=== PATIENT | male | born 1995 | race Caucasian/White ===

== ENCOUNTER 2020-09-04 16:24 | Emergency (ER) | payer SELFPAY ==
[2020-09-04 17:05] VITALS: BP 115/70; PULSE 76; RESP 16; TEMP 36.8; O2SAT 98; BMI 54.8
--- NOTE | 2020-09-04 17:18 | CT_ITS ---
EXAMINATION: CT ABDOMEN AND PELVIS WITH CONTRAST CLINICAL INFORMATION: Right groin pain. Concern for appendicitis or renal colic COMPARISON: None TECHNIQUE: Multidetector volumetric images were obtained from the superior aspect of the liver through the pubic symphysis following administration 85 mL ofOmnipaque 350 intravenous contrast. Sagittal and coronal reformatted images were obtained on the technologist's workstation. Oral contrast: No This CT examination was performed using dose optimization techniques as appropriate, variously including the following: *Automated exposure control *Adjustment of mA and/or kV according to patient size (this includes techniques or standardized protocols for targeted exams where dose is matched to indication/reason for exam; i.e. extremities or head) *Use of iterative reconstruction technique DLP: 353 mGy-cm FINDINGS: LUNG BASES: The visualized lung bases are unremarkable. LIVER, GALLBLADDER, AND BILIARY TREE: The liver is normal in size, shape, and attenuation. No focal hepatic lesion or biliary ductal dilatation is present. Gallbladder is contracted. No bile duct dilatation. PANCREAS: Unremarkable. SPLEEN: Unremarkable. ADRENAL GLANDS: Unremarkable. KIDNEYS AND URETERS: The kidneys are normal in size, shape, and attenuation. No hydronephrosis, hydroureter, or calculi seen. No perinephric stranding. BLADDER: Unremarkable. GASTROINTESTINAL TRACT: There is no acute change of the bowel. There is no bowel wall thickening /edema. There is no bowel obstruction. There is a moderate volume of stool in the colon. The appendix is normal . The small bowel loops are unremarkable. The stomach is normal. There is no hiatal hernia. ABDOMINAL WALL: No significant hernia is appreciated. LYMPH NODES: Normal. VASCULAR: Unremarkable. PELVIC VISCERA: Unremarkable. OSSEOUS STRUCTURES: Unremarkable. CT/CT abdomen pelvis w con IMPRESSION: No acute abnormality CT scan abdomen pelvis. Normal appendix. Normal kidneys, ureter and bladder.
--- NOTE | 2020-09-04 17:20 | ED_ITS ---
HPI - Male Genitourinary General Chief complaint: Urogenital-Male Stated complaint: blood in urine - sent by [employer] Time Seen by Provider: 09/04/20 16:26 Source: patient Mode of arrival: ambulatory Limitations: no limitations History of Present Illness HPI Narrative: 24 yo male previously healthy here with right lower abdominal and groin pain x several days. Went to urgent care. Had UA which showed microscopic hematuria and patient sent in for further eval. Patient has some frequency. No dysuria/testicular pain/fevers/chills/vomiting or diarrhea. He is sexually active with one partner. Does not use condoms. MD Complaint: other (abdominal/groin pain) Onset (ago): day(s) Duration: constant Location: right inguinal region Severity: mild Quality: aching Relieving factors: none Exacerbating factors: none Associated symptoms: Reports swelling Related Data Sexually active: Yes Allergies Allergy/AdvReac Type Severity Reaction Status Date / Time No Known Allergies Allergy Verified 09/04/20 17:17 [No Known Allergies*] Review of Systems Review of Systems: Yes all other systems are reviewed and are negative Constitutional: Constitutional: Reports no additional constitutional complaints, Denies body ache(s), Denies chills, Denies fever(s), Denies headache(s) and Denies weakness Eyes: Eyes: Reports no additional eye complaints and Denies change in vision ENT: Reports system reviewed and no additional complaints, except as documented, Denies dizziness, Denies headache(s), Denies nasal congestion, Denies nasal discharge and Denies neck pain Cardiovascular: Cardiovascular: Reports no additional cardiovascular compl aints, Denies chest pain, Denies leg edema and Denies dyspnea Respiratory: Respiratory: Reports no additional respiratory complaints, Denies cough and Denies dyspnea Gastrointestinal: Gastrointestinal: Reports no additional gastrointestinal complaints, Reports abdominal pain, Denies diarrhea, Denies nausea and Denies vomiting Comments: +groin pain Genitourinary: Genitourinary: Denies dysuria, Denies flank pain, Denies penile discharge, Denies scrotal swelling, Denies testicular mass, Denies testicular pain, Reports urinary frequency, Denies urinary hesitancy, Denies urinary incontinence and Denies urinary urgency Musculoskeletal: Musculoskeletal: Reports no additional musculoskeletal complaints, Denies back pain, Denies arthralgias, Denies joint swelling, Denies neck pain, Denies numbness and Denies tingling Integumentary/Breasts: Skin/Breast: Reports system reviewed and no additional complaints, except as docu and Denies rash Neurologic: Reports system reviewed and no additional complaints, except as documented, Denies Abnormal speech present, Denies dizziness, Denies headache(s), Denies numbness, Denies tingling and Denies weakness PMFSH Past Medical History Attestation statement: The following information was validated with the patient. Source: obtained from family and nursing notes reviewed Medical History Kidney stone Social History Social History Smoked in Last 30 Days: No Use of substances other than those prescribed or required for medical reasons: No Advance Directives: No Advance Directives Information Provided: Yes Physical Exam Vital Signs: Vital Signs: Vital Signs Temp Pulse Resp BP Pulse Ox 09/04/20 17:05 98.2 F 76 16 115/70 98 Body Mass Index 54.8 Const: General: cooperative, healthy appearing, comfortable and no acute distress Orientation/consciousness: patient oriented x3 Limitations: no limitations HENMT: Head: Yes normal to inspection Ears: hearing grossly normal bilaterally General nose exam: Normal external nose present Face and sinus: Yes normal facial exam Mouth: Normal oral and palatal mucosa present Throat: Yes posterior oropharynx normal Eyes: General: appearance normal, both eyes and all related structures Pup ils: Equal, round and reactive pupils present Neck: Neck: Yes normal visual inspection Chest: Chest palpation & inspection: normal inspection of the chest Resp: Effort & Inspection: normal respiratory effort Auscultation: clear to auscultation bilaterally Cardio: Rate: regular rate Rhythm: regular rhythm Peripheral pulses: Peripheral pulses 2+ throughout GI: Inspection: Yes normal to inspection Palpation (GI): Soft to palpation and nontender Auscultation: normal bowel sounds : Other: Right inguinal tenderness, swelling which extends over to the patients proximal anterior thigh. Unable to palpate lymphadenopathy. No palpable hernia. EDUAR mccann present. General: Yes Bimanual renal exam normal bilaterally and No CVA tenderness Male General Exam: Yes normal external exam and No Genital lesions present Penis: normal penis, circumcised and No Genital lesions present Meatus: meatus normal Scrotum: scrotum normal and testes descended bilaterally Testes: Testes normal, no testicular mass, no testicular swelling and no testicular tenderness Back/Spine/Pelvis: Back: No CVA tenderness Thoracic/Lumbar Spine: thoracic and lumbar spine normal to inspection Skin: General skin exam: no rashes or lesions noted Neuro: General: patient oriented x3, no focal motor deficits and normal sensation to monofilament Cranial nerves: Yes Equal, round and reactive pupils present Cognition (Neuro): normal cognition Speech: No Abnormal speech present Gait exam (Neuro): Normal gait present Motor exam (neuro): 5/5 motor strength present throughout Extrem: General: Yes normal to inspection Course Course Course Narrative: R inguinal swelling, tenderness x several days with urinary frequency and microscopic hematuria noted at urgent care. On exam unable to palpate lymphadenopathy or hernia as patient is very tender and unwilling to let me fully palpate the area. No testicular swelling/tenderness. No upper abdominal pain. Will check UA, GC urine, CT pelvis, labs. 174-sign out to Lindsey PA pending imaging, labs, UA/GC urine. MDM - Male Genitourinary MDM Narrative Medical decision making narrative: inguinal lymphadenopathy, inguinal hernia, renal colic, cystitis, STD Lab Data Result diagrams: 09/04/20 17:36 09/04/20 17:36 Labs: Lab Results 09/04/20 Range/Units 17:36 WBC 8.8 (4.8-10.8) X10*3/uL RBC 4.96 (4.60-5.80) X10*6/uL Hgb 15.2 (14.0-18.0) g/dl Hct 44.6 (42-52) % MCV 89.9 (80-98) fL MCH 30.6 (27.0-33.0) pg MCHC 34.1 (31.0-36.0) g/dl RDW 11.5 (11.0-16.0) % Plt Count 310 (160-400) X10*3/uL MPV 9.0 L (9.4-12.4) fL Immature Gran % (Auto) 0.2 (0.0-0.4) % Neut % (Auto) 56.3 (45-73) % Lymph % (Auto) 33.4 (20-40) % [place] % (Auto) 8.7 (2-11) % Eos % (Auto) 1.2 (0-4) % Baso % (Auto) 0.2 (0-2) % Lymph # (Auto) 2.9 (1.2-4.9) X10*3/uL [place] # (Auto) 0.8 (0.1-1.2) X10*3/uL Eos # (Auto) 0.1 (0.0-0.4) X10*3/uL Baso # (Auto) 0.0 (0.0-0.2) X10*3/uL Abs Immat Gran (auto) 0.02 (0.00-0.03) X10*3/uL Absolute Neuts (auto) 5.0 (2.0-8.3) X10*3/uL Absolute Nucleated RBC 0.000 (0.0-0.012) X10*3/uL Nucleated RBC % (auto) 0.0 (0.0-0.2) /100WBC
[2020-09-04 17:40] LABS: MANUAL DIFF FLAG NO
[2020-09-04 17:46] LABS: Basophils Percent Auto 0.2 % (0-2); Eosinophils Absolute Auto 0.1 X10*3/uL (0.0-0.4); Eosinophils Percent Auto 1.2 % (0-4); Hematocrit 44.6 % (42-52); Hemoglobin 15.2 g/dl (14.0-18.0); Imm Gran Abs Auto 0.02 X10*3/uL (0.00-0.03); Imm Gran Pct Auto 0.2 % (0.0-0.4); Lymphocytes Absolute Auto 2.9 X10*3/uL (1.2-4.9); Lymphocytes Percent Auto 33.4 % (20-40); Mean Corpuscular HGB Conc 34.1 g/dl (31.0-36.0); Mean Corpuscular Hemoglobin 30.6 pg (27.0-33.0); Mean Corpuscular Volume 89.9 fL (80-98); Monocytes Absolute Auto 0.8 X10*3/uL (0.1-1.2); Monocytes Percent Auto 8.7 % (2-11); Neutrophils Percent Auto 56.3 % (45-73); Platelet Count 310 X10*3/uL (160-400); Red Blood Count 4.96 X10*6/uL (4.60-5.80); Red Cell Distribution Width 11.5 % (11.0-16.0); White Blood Count 8.8 X10*3/uL (4.8-10.8)
[2020-09-04 18:17] LABS: Anion Gap 13 (12-20); Blood Urea Nitrogen 11 mg/dL (9-16); Calcium 9.4 mg/dL (8.4-10.2); Carbon Dioxide 28 mmol/L (22-29); Chloride 103 mmol/L (96-108); Creatinine Clr Calc Pharmacy 160.2; Estimated Glomerular Filt Rate > 60; Glucose Random 97 mg/dL (60-115); Potassium 4.1 mmol/l (3.3-5.1); Sodium 140 mmol/L (135-145)
[2020-09-04 19:17] LABS: Glucose Urine UA NEG (NEG); Leukocyte Esterase Urine NEG (NEG); Nitrite Urine NEG (NEG); Urine Blood 1+ (NEG); Urine Ketones NEG (NEG); Urine Protein NEG (NEG-TRACE)
[2020-09-04 19:18] LABS: Appearance Urine CLEAR; Color Urine YELLOW
[2020-09-04 19:26] LABS: WBC Urine 0 /HPF (0-4)
[2020-09-04] MEDS: iohexoL 350 MG/ML 100 ML INFUS..BTL 85 ML IV (19:57)
[2020-09-05 08:59] LABS: CT PCR NOT DETECTED (Not Detect.); NG PCR NOT DETECTED (Not Detect.)
== END 2020-09-04 20:49 | disposition home or self-care (01) ==
PROVIDERS: Nurse Practitioner Family; Emergency Provider Emergency Medicine
DX: R31.9 Hematuria, unspecified (principal); R10.30 Lower abdominal pain, unspecified; R10.31 Right lower quadrant pain; Z20.2 Contact with and (suspected) exposure to infections with a predominantly sexual mode of transmission
CPT/HCPCS: 36415; 74177; 80048; 81001; 85025; 87491; 87591; 99284; Q9967

== ENCOUNTER 2020-10-08 12:09 | Outpatient (REF) | payer OTHER, SELFPAY | END 2020-10-08 12:10 | disposition home or self-care (01) | LOC: HO.LAB 12:09 | PROVIDERS: Visit Provider Internal Medicine | DX: Z20.828 Contact with and (suspected) exposure to other viral communicable diseases (principal) | CPT/HCPCS: C9803; U0003 ==

== ENCOUNTER 2020-10-28 02:07 | Emergency (ER) | payer OTHER, SELFPAY ==
[2020-10-28 02:58] VITALS: BP 136/86; PULSE 75; RESP 16; TEMP 36.8; O2SAT 97; BMI 52.9
--- NOTE | 2020-10-28 03:34 | ED.NECK ---
HPI - Neck Pain/Injury General Chief Complaint: Neck Pain/Injury Stated Complaint: Back pain/Neck pain Time Seen by Provider: 10/28/20 03:29 Source: patient Mode of arrival: ambulatory Limitations: no limitations History of Present Illness HPI Narrative: Patient working long hours came with pain in the lower occipital area on the left side for last few days no trauma no history of prior headaches complaint: neck pain Onset (ago): day(s) (3) Related Data Previous Rx's Medication Instructions Recorded cyclobenzaprine 10 mg PO Q8H #20 tab 10/28/20 ibuprofen 600 mg PO Q6H PRN #20 tab 10/28/20 Allergies Allergy/AdvReac Type Severity Reaction Status Date / Time No Known Allergies Allergy Unverified 07/24/20 16:27 Review of Systems Review of Systems: Yes all other systems are reviewed and are negative [facility] Past Medical History Medical History No known health problems Social History Social History Advance Directives: No Advance Directives Information Provided: No Physical Exam Vital Signs: Vital Signs: Last Vital Signs Temp 98.3 F 10/28/20 02:58 Pulse 75 10/28/20 02:58 Resp 16 10/28/20 02:58 BP 136/86 10/28/20 02:58 Pulse Ox 97 10/28/20 02:58 Body Mass Index 52.9 Const: General: cooperative, healthy appearing and comfortable Orientation/consciousness: patient oriented x3 HENMT: Head: Yes normal to inspection, Yes No palpable skull fracture present and Yes scalp tenderness (Left occipital area) Eyes: Conjunctivae: conjunctivae normal Sclerae: sclerae normal Resp: Effort & Inspection: normal respiratory effort Cardio: Rate: regular rate Rhythm: regular rhythm Neuro: General: patient oriented x3, gait normal and no focal motor deficits MDM - Neck Pain/Injury MDM Narrative Medical decision making narrative: Patient with left occipital muscle tenderness likely from strain and wrong posture, will give pain medication was muscle relaxant Discharge Plan Discharge Clinical Impression: Strain of neck muscle Qualifiers: Encounter type: initial encounter Qualified Code(s): S16.1XXA - Strain of muscle, fascia and tendon at neck level, initial encounter Patient Disposition: Home, Self-Care Instructions: Cervical Strain (ED) Additional Instructions: Apply ice take pain medication as prescribed Prescriptions: New cyclobenzaprine 10 mg tablet 10 mg PO Q8H Qty: 20 RF: 0 ibuprofen 600 mg tablet 600 mg PO Q6H PRN (Reason: pain) Qty: 20 RF: 0 Stand Alone Forms: Work/School Release Interventions: ED Discharge Assessment Last Done: 10/28/20 04:18 Discharge Date/Time: 10/28/20 04:19
[2020-10-28] MEDS: Ibuprofen 600 MG TABLET PO (04:09)
[2020-10-28] MEDS: Cyclobenzaprine HCl 10 MG TABLET PO (04:09)
== END 2020-10-28 04:19 | disposition home or self-care (01) ==
PROVIDERS: Emergency Provider Internal Medicine
DX: S16.1XXA Strain of muscle, fascia and tendon at neck level, initial encounter (principal); M54.2 Cervicalgia; X58.XXXA Exposure to other specified factors, initial encounter; Y93.9 Activity, unspecified; Y92.9 Unspecified place or not applicable; Y99.9 Unspecified external cause status; Z79.899 Other long term (current) drug therapy
CPT/HCPCS: 99283

== ENCOUNTER 2020-11-01 15:35 | Emergency (ER) | payer OTHER, SELFPAY ==
[2020-11-01 15:58] VITALS: BP 143/80; PULSE 92; RESP 17; TEMP 37; O2SAT 96; BMI 24.0
--- NOTE | 2020-11-01 16:18 | ED_ITS ---
HPI - Neck Pain/Injury General Chief Complaint: Neck Pain/Injury Stated Complaint: strain Time Seen by Provider: 11/01/20 16:01 Source: patient Mode of arrival: ambulatory Limitations: no limitations History of Present Illness HPI Narrative: Otherwise healthy 25-year-old male with no significant past medical history seen here on October 28 for left-sided posterior neck pain thought to be strain type injury secondary to work he was subsequently prescribed Flexeril and ibuprofen he re-presented today reports he is overall feeling much better still has slight pain with certain position in the superior posterior left side cervical region. Does report that he has been using a new pillow. 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 No headache, vision changes, chest pain, shortness of breath, fever or chills. In fact he reports any neck pain at this time at rest. MD complaint: neck pain Onset (ago): day(s) Associated symptoms: none Treatments prior to arrival: other (Ibuprofen/Flexeril) Related Data Previous Rx's Medication Instructions Recorded cyclobenzaprine 10 mg PO Q8H #20 tab 10/28/20 ibuprofen 600 mg PO Q6H PRN #20 tab 10/28/20 Allergies Allergy/AdvReac Type Severity Reaction Status Date / Time No Known Allergies Allergy Verified 11/01/20 16:00 Review of Systems Review of Systems: Constitutional: No Weight loss, No Fever, No Chills, No Night Sweats, No Fatigue, No Malaise ENT/Mouth: No Hearing loss, No Ear Pain, No Nasal Congestion, No Sinus Pain, No Hoarseness, No sore throat, No Rhinorrhea, No Swallowing Difficulty Eyes: No Eye Pain, No Swelling, No Redness, No Foreign Body, No Discharge, No Vision Changes Cardiovascular: No Chest Pain, No SOB, No Dyspnea on Exertion, No Orthopnea, No Edema, No Palpitations Respiratory: No Cough, No Sputum, No Wheezing, No Dyspnea Gastrointestinal: No Nausea, No Vomiting, No Diarrhea, No Constipation, No abdo swati Pain, No Hematochezia, No Melena Genitourinary: No Urinary Incontinence, No Urgency, No Flank Pain, No Urinary Flow Changes Musculoskeletal: No joint pain, No Myalgias, No Joint Swelling, As noted in HPI Skin: No Skin Lesions, No rash Neuro: No Weakness, No Numbness, No Paresthesias, No Loss of Consciousness, No Dizziness, No Headache Psych: No Social Issues Heme/Lymph: No Bruising, No Bleeding,No Lymphadenopathy Endocrine: No Polyuria, No Polydipsia, No Temperature Intolerance Yes all other systems are reviewed and are negative [facility] Past Medical History Medical History No known health problems Social History Social History Advance Directives: No Advance Directives Information Provided: No Physical Exam Vital Signs: Vital Signs: Last Vital Signs Temp 98.6 F 11/01/20 15:58 Pulse 92 11/01/20 15:58 Resp 17 11/01/20 15:58 BP 143/80 H 11/01/20 15:58 Pulse Ox 96 11/01/20 15:58 Body Mass Index 24.0 Reviewed Const: General: cooperative and healthy appearing; No acute distress or intoxicated appearing Nutritional Appearance: average body habitus Orientation/consciousness: patient oriented x3 HENMT: Head: Yes normal to inspection Ears: hearing grossly normal bilaterally Eyes: General: appearance normal, both eyes and all related structures Vi sual Hamm: normal visual hamm by confrontation Neck: Neck: Yes normal visual inspection, No positive Brudzinski's sign, No positive Kernig's sign and No tender Thyroid: Thyroid normal Neck images: 1. Very mild tender palpation over this region. No obvious swelling, erythema, infected area, lesion. Full range of motion. Chest: Chest palpation & inspection: normal inspection of the chest Resp: Effort & Inspection: normal respiratory effort Cardio: Jugular venous distension: no JVD Rhythm: regular rhythm Heart sounds: S1 normal heart sound present and S2 normal heart sound present : General: Yes no CVA tenderness Back/Spine/Pelvis: Back: no CVA tenderness Skin: General skin exam: no rashes or lesions noted Neuro: General: patient oriented x3 Extrem: General: Yes normal to inspection Course Course Course Narrative: AP left-sided posterior neck pain that is starting to improve consistent with musculoskeletal/cervical paraspinal muscle strain type injury/mild torticollis from new pillow. 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 Will discharge with work note for return follow-up instructions. Discharge Plan Discharge Clinical Impression: Strain of neck muscle Patient Disposition: Home, Self-Care Instructions: Cervical Strain (ED) Additional Instructions: Warm compress Take medication as prescribed I am glad to hear that your doing better this may take additional several days to fully resolve may be related to your new pillow use as discussed No operating heavy machinery or driving while taking muscle relaxant I have given you work note for work excuse as requested Return if any concerns or worsening symptoms Thank you Prescriptions: No Action cyclobenzaprine 10 mg tablet 10 mg PO Q8H Qty: 20 RF: 0 ibuprofen 600 mg tablet 600 mg PO Q6H PRN (Reason: pain) Qty: 20 RF: 0 Referrals: Physician,None [Primary Care Provider] - 1 week (Primary care 1 week) Stand Alone Forms: Work/School Release
== END 2020-11-01 16:35 | disposition home or self-care (01) ==
PROVIDERS: Emergency Provider Emergency Medicine Emergency Medical Services
DX: Z02.79 Encounter for issue of other medical certificate (principal); S16.1XXA Strain of muscle, fascia and tendon at neck level, initial encounter; X50.1XXA Overexertion from prolonged static or awkward postures, initial encounter; Y93.84 Activity, sleeping; Y92.013 Bedroom of single-family (private) house as the place of occurrence of the external cause; Y99.9 Unspecified external cause status
CPT/HCPCS: 99283

== ENCOUNTER 2020-11-10 09:21 | Outpatient (REF) | payer OTHER, SELFPAY ==
[2020-11-10 10:44] LABS: Glucose Urine UA NEG (NEG); Leukocyte Esterase Urine NEG (NEG); Nitrite Urine NEG (NEG); PH 6.5 (5.0-8.0); Specific Gravity - Urine 1.025 (1.005-1.025); Urine Blood 1+ (NEG); Urine Ketones NEG (NEG); Urine Protein NEG (NEG-TRACE)
[2020-11-10 10:45] LABS: Alanine Aminotransferase 71 U/L (0-40); Albumin Level 5.1 g/dL (3.5-5.0); Alkaline Phosphatase 73 U/L (39-117); Anion Gap 13 (12-20); Aspartate Amino Transferase 36 U/L (5-37); Bilirubin Total 1.8 mg/dL (0.0-1.0); Blood Urea Nitrogen 15 mg/dL (9-16); Calcium 10.1 mg/dL (8.4-10.2); Carbon Dioxide 32 mmol/L (22-29); Chloride 99 mmol/L (96-108); Estimated Glomerular Filt Rate > 60; Glucose Fasting 92 mg/dL (60-99); Sodium 139 mmol/L (135-145); Total Protein 8.3 g/dL (6.5-8.0)
[2020-11-10 10:47] LABS: Appearance Urine CLEAR; Color Urine YELLOW
[2020-11-10 10:52] LABS: Squamous Epithelial Cell Urine TRACE /LPF; WBC Urine 0 /HPF (0-4)
[2020-11-10 11:06] LABS: TSH reflex Free T4 1.08 mIU/mL (0.32-4.0)
== END 2020-11-10 09:22 | disposition home or self-care (01) ==
LOC: HO.LAB 09:21
PROVIDERS: PCP Internal Medicine; Visit Provider Physician Assistant
DX: R30.0 Dysuria (principal); R10.31 Right lower quadrant pain; Z13.1 Encounter for screening for diabetes mellitus; Z13.29 Encounter for screening for other suspected endocrine disorder
CPT/HCPCS: 36415; 80053; 81001; 81003; 84443

== ENCOUNTER → 2020-12-12 09:44 | Outpatient (BNVA) | payer OTHER, SELFPAY | PROVIDERS: PCP Internal Medicine; Visit Provider Urology | DX: R31.29 Other microscopic hematuria (principal); R10.31 Right lower quadrant pain | CPT/HCPCS: 81002; 99202 ==

== ENCOUNTER 2021-02-18 10:00 | Outpatient (RCR) | payer OTHER, SELFPAY ==
--- NOTE | 2021-01-07 18:09 | MHC.PT.EP ---
[facility] [place] Office [place] Office [place] Office [address] Keith Mars [address] [phone] F: [phone] F: [phone] F: [phone] F: [phone] Physical Therapy Plan of Care Date of Evaluation: 01/07/21 Date of Surgery: NA Diagnosis: Strain of Muscle, Fascia, and Tendon of Pelvis Assessment: Vijay is a 25-year-old male presenting to physical therapy with right-sided groin pain. He displays deficits in BL LE strength, impaired gait mechanics, and tenderness to palpation in his right iliopsoas tendon. Vijay would benefit from skilled therapy to address the aforementioned impairments and improve is tolerance to walking, running, lifting, sitting, and standing for long periods of time to allow him to return to work and perform recreational activities without pain. Pt was recommended to have therapy 2x/week for 4 weeks but due to financial reasons he will be attending therapy 1x/week for 6 weeks. Frequency and Duration: The patient will be seen 1 visit per week for 6 weeks Short Term Goals: 1.) Pt will report <2/10 pain at rest when performing leisure activities within 3 weeks. Environmental Scientist Goals: 1.) Pt will report <1/10 pain with activity to allow him to take his dog for walks within 6 weeks. 2.) Pt will demonstrate 5-/5 LE strength to allow him to return to running and lifting weights within 6 weeks. Treatment Plan: Modalities to reduce pain, spasms and effusion. Manual therapy to restore motion and function. Therapeutic exercise to improve strength and flexibility. Neuromuscular re-education for posture and balance. Therapeutic activities to return to functional activities of daily living. Electronically signed by: Adriane Gonzalez, PT, DPT Please sign and return to therapist. Thank you for your referral.
--- NOTE | 2021-02-18 11:31 | MHC.PT.DC ---
[facility] [place] Office [place] Office [place] Office [address] Keith Mars [address] [facility] [phone] F: [phone] F: [phone] F: [phone] F: [phone] Physical Therapy Discharge Report Diagnosis: Strain of Muscle, Fascia, and Tendon of Pelvis Date of Surgery: NA Date of Evaluation: 01/07/21 Date of Discharge: 02/18/21 Treatments to Date: 6 Cancellations to Date: 0 No Shows to Date: 0 Discharge Status: Achieved Goals Improved Function Discharge Summary: Vijay has completed 6 visits of outpatient physical therapy after sustaining a R hip flexor strain. During this time he has made significant improvements in LE strength and flexibility, Core stability and hip strength, lifting and squatting mechanics, and he no longer experiences pain in his hip flexor. Vijay was provided with a thorough HEP to continue outside of physical therapy in order to maintain He has met all of his physical therapy goals and is now being discharged from physical therapy. Electronically signed by: Adriane Gonzalez PT, DPT Please sign and return to therapist. Thank you for your referral.
== END 2021-02-18 11:32 | disposition other institution (70) ==
LOC: HO.PT 10:00
PROVIDERS: PCP Physician Assistant; Visit Provider Physician Assistant
DX: S39.013A Strain of muscle, fascia and tendon of pelvis, initial encounter (principal)
CPT/HCPCS: 97110; 97112; 97140; 97161; 97530

== ENCOUNTER 2021-04-12 19:55 | Emergency (ER) | payer OTHER, SELFPAY ==
--- NOTE | ~2021-04-12 | US_ITS ---
EXAMINATION: US ABDOMEN LIMITED CLINICAL INFORMATION: Epigastric pain, question gallstones. COMPARISON: CT 09/04/2020 TECHNIQUE: Real-time imaging of the right upper quadrant abdominal viscera. FINDINGS: PANCREAS: Macro ultrasound pancreas LIVER: The liver is normal in size. The liver contour is normal. Parenchymal echogenicity is normal. No focal hepatic lesion. There is no intrahepatic biliary duct dilatation seen. GALLBLADDER: The gallbladder is physiologically distended without evidence of stones, sludge, polyps, wall thickening or pericholecystic fluid. COMMON BILE DUCT: Normal in caliber measuring 0.4 cm in diameter. RIGHT KIDNEY: No hydronephrosis. No renal calculi or focal parenchymal lesions. The kidney measures 10.1 cm in maximum dimension. FREE FLUID: None. US/US abdomen limited IMPRESSION: No abnormality demonstrated.
[2021-04-12 20:54] VITALS: BP 127/84; PULSE 69; RESP 16; TEMP 36.5; O2SAT 97; BMI 25.0
[2021-04-12 22:24] LABS: MANUAL DIFF FLAG NO
[2021-04-12 22:29] LABS: Basophils Percent Auto 0.2 % (0-2); Eosinophils Absolute Auto 0.1 X10*3/uL (0.0-0.4); Eosinophils Percent Auto 0.3 % (0-4); Hematocrit 47.1 % (42-52); Hemoglobin 16.1 g/dl (14.0-18.0); Imm Gran Abs Auto 0.05 X10*3/uL (0.00-0.03); Imm Gran Pct Auto 0.3 % (0.0-0.4); Lymphocytes Absolute Auto 2.7 X10*3/uL (1.2-4.9); Mean Corpuscular HGB Conc 34.2 g/dl (31.0-36.0); Mean Corpuscular Hemoglobin 30.8 pg (27.0-33.0); Mean Corpuscular Volume 90.1 fL (80-98); Mean Platelet Volume 8.9 fL (9.4-12.4); Monocytes Percent Auto 6.6 % (2-11); Neutrophils Absolute Auto 10.5 X10*3/uL (2.0-8.3); Neutrophils Percent Auto 73.6 % (45-73); Platelet Count 335 X10*3/uL (160-400); Red Blood Count 5.23 X10*6/uL (4.60-5.80); Red Cell Distribution Width 11.6 % (11.0-16.0); White Blood Count 14.3 X10*3/uL (4.8-10.8)
[2021-04-12 22:57] LABS: Anion Gap 13 (12-20); Blood Urea Nitrogen 7 mg/dL (9-16); Calcium 10.3 mg/dL (8.4-10.2); Carbon Dioxide 28 mmol/L (22-29); Chloride 102 mmol/L (96-108); Creatinine Clr Calc Pharmacy 106.2; Estimated Glomerular Filt Rate > 60; Glucose Random 96 mg/dL (60-115); Potassium 4.3 mmol/L (3.3-5.1); Sodium 139 mmol/L (135-145)
[2021-04-12 23:52] LABS: Alanine Aminotransferase 21 U/L (0-40); Albumin Level 4.9 g/dL (3.5-5.0); Alkaline Phosphatase 76 U/L (39-117); Aspartate Amino Transferase 42 U/L (5-37); Bilirubin Direct 0.7 mg/dL (0.0-0.5); Bilirubin Total 2.6 mg/dL (0.0-1.0); Lipase 25 U/L (8-78)
[2021-04-13 00:51] LABS: COVID-19 Test Negative (Negative); IDNOW Serial# 9DD0AD1C
--- NOTE | 2021-04-13 00:55 | PC.NURSE ---
PT RESTING IN BED A&Ox3 SKIN PWD RESPIRATIONS EVEN UNLABORED. NO FACIAL GRIMACING OR GUARDING OF ABD. ASKING IF HE CAN EAT PRIOR TO US. PT INSTRUCTED NOT TO EAT ANYTHING UNTIL RESULTS RECEIVED. AWAITING US.
--- NOTE | 2021-04-13 01:06 | ED.ABDPAIN ---
HPI - Abdominal Pain General Chief Complaint: Abdominal Pain Stated Complaint: Multiple Complaints Time Seen by Provider: 04/13/21 00:15 Source: patient Mode of arrival: ambulatory Limitations: no limitations History of Present Illness HPI narrative: Patient presents to the ED for resolved epigastric acid burning sensation. Patient states yesterday he had acid burning sensation in epigastric area that resolved after drinking Pepto-Bismol. Patient then states he had 1 episode of diarrhea chills. Patient states no fever, chest pain, shortness of breath, nausea, vomiting. Patient presently is asymptomatic. Patient denies any lower abdominal pain. Patient denies any dysuria, hematuria, flank pain, or fever. Related Data Previous Rx's Medication Instructions Recorded nitrofurantoin monohyd/m-cryst 100 mg PO Q12H 5 Days #10 cap 09/04/20 [Macrobid] ibuprofen 600 mg PO Q6H PRN #20 tab 10/28/20 famotidine [Pepcid] 20 mg PO BID 15 Days #30 tab 04/13/21 Allergies Allergy/AdvReac Type Severity Reaction Status Date / Time No Known Allergies Allergy Verified 04/12/21 21:04 Review of Systems Review of Systems Yes all other systems are reviewed and are negative Constitutional: Reports as per HPI and Reports no additional constitutional complaints Eyes: Reports as per HPI and Reports no additional eye complaints Reports system reviewed and no additional complaints, except as documented and Reports as per HPI Cardiovascular: Reports as per HPI and Reports no additional cardiovascular complaints Respiratory: Reports as per HPI and Reports no additional respiratory complaints Gastrointestinal: Reports as per HPI, Reports no additional gastrointestinal complaints, Reports heartburn and Reports diarrhea (Once) Genitourinary: Reports no additional male genitourinary complaints and Reports as per HPI Musculoskeletal: Reports as per HPI Reports system reviewed and no additional complaints, except as documented and Reports as per HPI Psychiatric: Reports no additional psychiatric complaints and Reports as per HPI Physical Exam Vital Signs: Vital Signs: Last Vital Signs Temp 97.7 F 04/12/21 20:54 Pulse 69 04/12/21 20:54 Resp 16 04/12/21 20:54 BP 127/84 04/12/21 20:54 Pulse Ox 97 04/12/21 20:54 Body Mass Index 25.0 Const: General: cooperative, healthy appearing, comfortable, no acute distress, well developed, alert, awake and Physically active Orientation/consciousness: patient oriented x3 HENMT: Head: Yes normal to inspection, Yes No palpable skull fracture present, Yes normocephalic, Yes atraumatic and Yes abrasion Eyes: General: appearance normal, both eyes and all related structures Neck: Neck: Yes normal visual inspection, Yes full ROM, Yes no lymphadenopathy, Yes no meningeal signs, Yes trachea midline, Yes supple and No tender Chest: Chest palpation & inspection: normal inspection of the chest and normal palpation of entire chest wall Resp: Effort & Inspection: normal respiratory effort and able to speak in complete sentences Auscultation: clear to auscultation bilaterally Cardio: Jugular venous distension: no JVD Heart sounds: S1 normal heart sound present and S2 normal heart sound present GI: Inspection: Yes normal to inspection and No abdominal wall ecchymosis Palpation (GI): Soft to palpation, not firm, nontender, no guarding and not rigid : General: No CVA tenderness and Yes no CVA tenderness Back/Spine/Pelvis: Back: no CVA tenderness, No CVA tenderness and No back tenderness Skin: General skin exam: no rashes or lesions noted and elasticity normal Neuro: General: patient oriented x3, gait normal, no meningeal signs and CN's II-XI intact bilaterally Cranial nerves: Yes CN's II-XII intact bilaterally Extrem: General: Yes normal to inspection and Yes full ROM Psych: Appearance: grossly normal, well kempt and not disheveled Course Course Course Narrative: Patient presently is asymptomatic. We will do basic labs. Reevaluation(s) Reevaluation #1: Labs shows elevated white blood cell count with left shift. Patient's abdomen was reexamined and is benign and nontender on palpation. CT scan was ordered to check for any gallstones or any other abdominal etiology. Reevaluation #2: Patient refused CT scan and states he does not want CT scan of the abdomen because he has had many CAT scans before in the past. Patient states presently not having any abdominal pain. Patient states CT scan was ordered to check for possible gallstones, pancreatitis, appendicitis. Patient does not believe he has appendicitis and refused abdominal CT scan. Patient agreeable to ultrasound of abdomen to rule out gallstones. Time: 23:11 Reevaluation #3: Abdominal ultrasound came back normal. Patient is safe for discharge. Patient informed to return to the ED immediately if abdominal pain returns or worsens/especially if he has right lower quadrant pain. . Time: 02:02 MDM - Abdominal Pain MDM Narrative Medical decision making narrative: GERD Lab Data Result diagrams: 04/12/21 22:21 04/12/21 22:21 Labs: Lab Results 04/12/21 04/12/21 04/13/21 Range/Units 22:21 22:21 00:33 WBC 14.3 H (4.8-10.8) X10*3/uL RBC 5.23 (4.60-5.80) X10*6/uL Hgb 16.1 (14.0-18.0) g/dl Hct 47.1 (42-52) % MCV 90.1 (80-98) fL MCH 30.8 (27.0-33.0) pg MCHC 34.2 (31.0-36.0) g/dl RDW 11.6 (11.0-16.0) % Plt Count 335 (160-400) X10*3/uL MPV 8.9 L (9.4-12.4) fL Immature Gran % (Auto) 0.3 (0.0-0.4) % Neut % (Auto) 73.6 H (45-73) % Lymph % (Auto) 19.0 L (20-40) % [place] % (Auto) 6.6 (2-11) % Eos % (Auto) 0.3 (0-4) % Baso % (Auto) 0.2 (0-2) % Lymph # (Auto) 2.7 (1.2-4.9) X10*3/uL [place] # (Auto) 1.0 (0.1-1.2) X10*3/uL Eos # (Auto) 0.1 (0.0-0.4) X10*3/uL Baso # (Auto) 0.0 (0.0-0.2) X10*3/uL Abs Immat Gran (auto) 0.05 H (0.00-0.03) X10*3/uL Absolute Neuts (auto) 10.5 H (2.0-8.3) X10*3/uL Absolute Nucleated RBC 0.000 (0.0-0.012) X10*3/uL Nucleated RBC % (auto) 0.0 (0.0-0.2) /100WBC Sodium 139 (135-145) mmol/L Potassium 4.3 (3.3-5.1) mmol/L Chloride 102 (96-108) mmol/L Carbon Dioxide 28 (22-29) mmol/L Anion Gap 13 (12-20) BUN 7 L D (9-16) mg/dL Creatinine 0.89 (0.5-1.4) mg/dL Estim Creat Clear Calc 106.2 Estimated GFR > 60 Random Glucose 96 (60-115) mg/dL Calcium 10.3 H (8.4-10.2) mg/dL Total Bilirubin 2.6 H (0.0-1.0) mg/dL Direct Bilirubin 0.7 H (0.0-0.5) mg/dL AST 42 H (5-37) U/L ALT 21 (0-40) U/L Alkaline Phosphatase 76 (39-117) U/L Total Protein 8.0 (6.5-8.0) g/dL Albumin 4.9 (3.5-5.0) g/dL Lipase 25 (8-78) U/L COVID-19 ([facility]) Negative (Negative) COVID-19 Clin Com See Note Discharge Plan Discharge Clinical Impression: Gastroesophageal reflux disease Patient Disposition: Home, Self-Care Instructions: Gastroesophageal Reflux Disease (ED) Additional Instructions: Return to the ED immediately for worsening abdominal pain, nausea, vomiting, decreased appetite, dysuria, hematuria, flank pain, fever, chills, or any other concerning symptoms. Please follow-up with the PCP Prescriptions: New famotidine [Pepcid] 20 mg tablet 20 mg PO BID 15 Days Qty: 30 RF: 0 No Action nitrofurantoin monohyd/m-cryst [Macrobid] 100 mg capsule 100 mg PO Q12H 5 Days Qty: 10 RF: 0 ibuprofen 600 mg tablet 600 mg PO Q6H PRN (Reason: pain) Qty: 20 RF: 0 Print Language: Tajik [facility] Past Medical History Medical History No known health problems Social History Social History (System 12/24/20 @ 14:04 by Kemi Leal) Patient Tobacco Use Status: Never used Tobacco Advance Directives: No Advance Directives Information Provided: No
== END 2021-04-13 02:32 | disposition home or self-care (01) ==
PROVIDERS: Physician Assistant; Emergency Provider Student in an Organized Health Care Education/Training Program
DX: K21.9 Gastro-esophageal reflux disease without esophagitis (principal); R10.13 Epigastric pain; Z20.822 Contact with and (suspected) exposure to COVID-19; R68.83 Chills (without fever); R19.7 Diarrhea, unspecified; Z79.899 Other long term (current) drug therapy
CPT/HCPCS: 36415; 76705; 80048; 80076; 83690; 85025; 87635; 99284

== ENCOUNTER 2021-09-12 13:33 | Emergency (ER) | payer OTHER, SELFPAY ==
[2021-09-12 13:48] VITALS: BP 130/71; PULSE 80; RESP 19; TEMP 36.6; O2SAT 100; BMI 22.3
--- NOTE | 2021-09-12 15:09 | ED_ITS ---
HPI - Nausea/Vomiting/Diarrhea General Chief complaint: Nausea/Vomiting/Diarrhea Stated complaint: vomiting Time Seen by Provider: 09/12/21 15:09 Source: patient Mode of arrival: ambulatory Limitations: no limitations History of Present Illness MD elicited complaint: nausea, vomiting and diarrhea Onset (ago): hour(s) (started upon waking this AM) Description of vomiting: food contents and watery Description of diarrhea: watery Associated nausea: Yes Location of pain: none Severity: moderate Exacerbating factors: eating Relieving factors: none Context: possible food poisoning (started after having 4 drinks last night and eating wings from [employer]) Associated symptoms: loss of appetite and nausea/vomiting Related Data Previous Rx's Medication Instructions Recorded famotidine 20 mg tablet (Pepcid) 20 mg PO BID 15 Days #30 tab 04/23/21 ondansetron 4 mg disintegrating 4 mg PO Q8H PRN #20 tab 09/12/21 tablet Allergies Allergy/AdvReac Type Severity Reaction Status Date / Time No Known Allergies Allergy Verified 04/23/21 14:35 Review of Systems Review of Systems: Constitutional : No Weight loss, No Fever, No Chills ENT/Mouth : No sore throat, No Rhinorrhea Eyes: No Swelling, No Redness Cardiovascular : No Chest Pain, No SOB, NoEdema Respiratory : No Cough, No Sputum, No Wheezing Gastrointestinal : Positive Nausea, Positive Vomiting, positive Diarrhea, no abdominal Pain, No Hematochezia, No Melena Genitourinary : No Dysuria, No Urinary Frequency, No Hematuria, No Urgency Musculoskeletal : No joint pain, No Myalgias, No Joint Swelling Skin : No Skin Lesions, No rash Neuro : No Weakness, No Numbness, No Dizziness, No Headache Psych : No Anxiety/Panic, No Depression Heme/Lymph: No Bruising, No Lymphadenopathy Endocrine : No Polyuria, No Polydipsia All other systems reviewed and are negative. Gastrointestinal: Gastrointestinal: Reports nausea PMFSH Past Medical History Attestation statement: The following information was validated with the patient. Medical History (Updated 09/12/21 @ 17:28 by Brionna Temple DO) Gilbert syndrome Kidney stone No known health problems Surgical History No history of previous surgery Family History Family History Mother No problems noted. Father No problems noted. Social History Social History Housing: Apartment Alcohol intake: never Patient Tobacco Use Status: Never used Tobacco Advance Directives: No Current occupational status: unemployed Physical Exam Vital Signs: Vital Signs: Last Vital Signs Temp 98 F 09/12/21 13:48 Pulse 87 09/12/21 17:22 Resp 16 09/12/21 17:22 BP 116/61 09/12/21 17:22 Pulse Ox 97 09/12/21 17:22 Body Mass Index 22.3 Appearance: Alert. Oriented X3. No acute distress. Eyes: Pupils equal, round and reactive to light. ENT: Pharynx normal. Neck: Normal inspection. Neck supple. CVS: Normal heart rate and rhythm. Pulses normal. Respiratory: No respiratory distress. Breath sounds normal. Abdomen: Soft and non-tender. Skin: Skin warm and dry. Normal skin color. Normal skin turgor. Extremities: No lower extremity edema. No calf ttp Neuro: Oriented X 3. No motor deficit. No sensory deficit. Course Course Course Narrative: feels better can tolerate PO stable for DC hx of elevated WBC count in past no abdominal pain bili indirect hx of same in past most likely gilbert ds MDM - Nausea/Vomiting/Diarrhea MDM Narrative Medical decision making narrative: 25 yo male otherwise not toxic here with n/v/d post drinking and eating wings - at this time abdomen is benign will obtain basic labs, hydrate and provide supportive care - at this time no localized pain, moving well no peritoneal signs - dispo per results and findings. Lab Data Result diagrams: 09/12/21 15:51 09/12/21 15:51 Labs: Lab Results 09/12/21 09/12/21 09/12/21 Range/Units 15:50 15:51 15:51 WBC 14.3 H (4.8-10.8) X10*3/uL RBC 5.11 (4.60-5.80) X10*6/uL Hgb 16.0 (14.0-18.0) g/dl Hct 46.2 (42.0-52.0) % MCV 90.4 (80.0-98.0) fL MCH 31.3 (27.0-33.0) pg MCHC 34.6 (31.0-36.0) g/dl RDW 11.7 (11.0-16.0) % Plt Count 310 (160-400) X10*3/uL MPV 8.6 L (9.4-12.4) fL Immature Gran % (Auto) 0.2 (0.0-0.4) % Neut % (Auto) 83.8 H (45-73) % Lymph % (Auto) 10.3 L (20-40) % [place] % (Auto) 5.6 (2-11) % Eos % (Auto) 0.0 (0-4) % Baso % (Auto) 0.1 (0-2) % Lymph # (Auto) 1.5 (1.2-4.9) X10*3/uL [place] # (Auto) 0.8 (0.1-1.2) X10*3/uL Eos # (Auto) 0.0 (0.0-0.4) X10*3/uL Baso # (Auto) 0.0 (0.0-0.2) X10*3/uL Abs Immat Gran (auto) 0.03 (0.00-0.03) X10*3/uL Absolute Neuts (auto) 12.0 H (2.0-8.3) x10*3/uL Absolute Nucleated RBC 0.000 (0.0-0.012) X10*3/uL Nucleated RBC % (auto) 0.0 (0.0-0.2) /100WBC Sodium 140 (135-145) mmol/L Potassium 4.5 (3.3-5.1) mmol/L Chloride 102 (96-108) mmol/L Carbon Dioxide 25 (22-29) mmol/L Anion Gap 18 (12-20) BUN 16 D (9-16) mg/dL Creatinine 0.91 (0.5-1.4) mg/dL Estim Creat Clear Calc 103.4 Estimated GFR > 60 Random Glucose 82 (60-115) mg/dL Calcium 10.4 H (8.4-10.2) mg/dL Magnesium 1.9 (1.6-2.6) mg/dL Total Bilirubin 3.4 H (0.0-1.0) mg/dL Direct Bilirubin 0.7 H (0.0-0.5) mg/dL AST 53 H (5-37) U/L ALT 27 (0-40) U/L Alkaline Phosphatase 66 (39-117) U/L Total Protein 8.7 H (6.5-8.0) g/dL Albumin 5.3 H (3.5-5.0) g/dL Lipase 24 (8-78) U/L Ethyl Alcohol mg/dL COVID-19 ([facility]) Negative (Negative) COVID-19 Clin Com See Note 09/12/21 Range/Units 15:51 WBC (4.8-10.8) X10*3/uL RBC (4.60-5.80) X10*6/uL Hgb (14.0-18.0) g/dl Hct (42.0-52.0) % MCV (80.0-98.0) fL MCH (27.0-33.0) pg MCHC (31.0-36.0) g/dl RDW (11.0-16.0) % Plt Count (160-400) X10*3/uL MPV (9.4-12.4) fL Immature Gran % (Auto) (0.0-0.4) % Neut % (Auto) (45-73) % Lymph % (Auto) (20-40) % [place] % (Auto) (2-11) % Eos % (Auto) (0-4) % Baso % (Auto) (0-2) % Lymph # (Auto) (1.2-4.9) X10*3/uL [place] # (Auto) (0.1-1.2) X10*3/uL Eos # (Auto) (0.0-0.4) X10*3/uL Baso # (Auto) (0.0-0.2) X10*3/uL Abs Immat Gran (auto) (0.00-0.03) X10*3/uL Absolute Neuts (auto) (2.0-8.3) x10*3/uL Absolute Nucleated RBC (0.0-0.012) X10*3/uL Nucleated RBC % (auto) (0.0-0.2) /100WBC Sodium (135-145) mmol/L Potassium (3.3-5.1) mmol/L Chloride (96-108) mmol/L Carbon Dioxide (22-29) mmol/L Anion Gap (12-20) BUN (9-16) mg/dL Creatinine (0.5-1.4) mg/dL Estim Creat Clear Calc Estimated GFR Random Glucose (60-115) mg/dL Calcium (8.4-10.2) mg/dL Magnesium (1.6-2.6) mg/dL Total Bilirubin (0.0-1.0) mg/dL Direct Bilirubin (0.0-0.5) mg/dL AST (5-37) U/L ALT (0-40) U/L Alkaline Phosphatase (39-117) U/L Total Protein (6.5-8.0) g/dL Albumin (3.5-5.0) g/dL Lipase (8-78) U/L Ethyl Alcohol < 10 mg/dL COVID-19 ([facility]) (Negative) COVID-19 Clin Com Discharge Plan Discharge Clinical Impression: Gilbert syndrome Vomiting Qualifiers: Vomiting type: unspecified Vomiting Intractability: non-intractable Nausea presence: with nausea Qualified Code(s): R11.2 - Nausea with vomiting, unspecified Diarrhea Qualifiers: Diarrhea type: unspecified type Qualified Code(s): R19.7 - Diarrhea, unspecified Patient Disposition: Home, Self-Care Instructions: Acute Nausea and Vomiting (ED), Acute Diarrhea (ED), Jaundice (ED) Additional Instructions: return to ED for any worsening symptoms or concerns REPEAT YOUR LIVER FUNCTION TESTS ON TUESDAY Prescriptions: New ondansetron 4 mg tablet,disintegrating 4 mg PO Q8H PRN (Reason: nausea and vomiting) Qty: 20 RF: 0 No Action famotidine [Pepcid] 20 mg tablet 20 mg PO BID 15 Days Qty: 30 RF: 0 Stand Alone Forms: Work/School Release
[2021-09-12 15:55] LABS: MANUAL DIFF FLAG NO
[2021-09-12 15:56] LABS: Basophils Percent Auto 0.1 % (0-2); Hematocrit 46.2 % (42.0-52.0); Imm Gran Abs Auto 0.03 X10*3/uL (0.00-0.03); Imm Gran Pct Auto 0.2 % (0.0-0.4); Lymphocytes Absolute Auto 1.5 X10*3/uL (1.2-4.9); Lymphocytes Percent Auto 10.3 % (20-40); Mean Corpuscular HGB Conc 34.6 g/dl (31.0-36.0); Mean Corpuscular Hemoglobin 31.3 pg (27.0-33.0); Mean Corpuscular Volume 90.4 fL (80.0-98.0); Mean Platelet Volume 8.6 fL (9.4-12.4); Monocytes Absolute Auto 0.8 X10*3/uL (0.1-1.2); Monocytes Percent Auto 5.6 % (2-11); Neutrophils Percent Auto 83.8 % (45-73); Platelet Count 310 X10*3/uL (160-400); Red Blood Count 5.11 X10*6/uL (4.60-5.80); Red Cell Distribution Width 11.7 % (11.0-16.0); White Blood Count 14.3 X10*3/uL (4.8-10.8)
[2021-09-12] MEDS: diphenhydrAMINE HCL 50 MG/ML VIAL 25 MG IVPUSH (16:00)
[2021-09-12] MEDS: Metoclopramide HCl 10 MG/2 ML VIAL IVPUSH (16:01)
[2021-09-12] MEDS: 0.9 % Sodium Chloride 1,000 ML 999 ML IVCONT ×2 (16:01→16:10)
[2021-09-12] MEDS: Famotidine/PF 20 MG/2 ML VIAL IVPUSH (16:01)
[2021-09-12 16:12] LABS: Ethanol < 10 mg/dL
[2021-09-12 16:32] LABS: COVID-19 Test Negative (Negative); IDNOW Serial# 9DD0AD1C
[2021-09-12 16:40] LABS: Alanine Aminotransferase 27 U/L (0-40); Albumin Level 5.3 g/dL (3.5-5.0); Alkaline Phosphatase 66 U/L (39-117); Anion Gap 18 (12-20); Aspartate Amino Transferase 53 U/L (5-37); Bilirubin Direct 0.7 mg/dL (0.0-0.5); Bilirubin Total 3.4 mg/dL (0.0-1.0); Blood Urea Nitrogen 16 mg/dL (9-16); Calcium 10.4 mg/dL (8.4-10.2); Carbon Dioxide 25 mmol/L (22-29); Chloride 102 mmol/L (96-108); Creatinine Clr Calc Pharmacy 103.4; Estimated Glomerular Filt Rate > 60; Glucose Random 82 mg/dL (60-115); Lipase 24 U/L (8-78); Magnesium 1.9 mg/dL (1.6-2.6); Potassium 4.5 mmol/L (3.3-5.1); Sodium 140 mmol/L (135-145); Total Protein 8.7 g/dL (6.5-8.0)
[2021-09-12] MEDS: 0.9 % Sodium Chloride 1,000 ML 999 ML IV (17:16)
[2021-09-12 17:22] VITALS: BP 116/61; PULSE 87; RESP 16; O2SAT 97
== END 2021-09-12 18:33 | disposition home or self-care (01) ==
PROVIDERS: Emergency Provider Emergency Medicine; PCP Physician Assistant
DX: E80.4 Gilbert syndrome (principal); R11.2 Nausea with vomiting, unspecified; R19.7 Diarrhea, unspecified; Z79.899 Other long term (current) drug therapy
CPT/HCPCS: 36415; 80048; 80076; 82077; 83690; 83735; 85025; 87635; 96361; 96374; 96375; 99284; J1200; J2765

== ENCOUNTER 2021-09-18 11:01 | Outpatient (REF) | payer OTHER, SELFPAY ==
[2021-09-18 12:16] LABS: Alanine Aminotransferase 19 U/L (0-40); Albumin Level 4.8 g/dL (3.5-5.0); Alkaline Phosphatase 58 U/L (39-117); Aspartate Amino Transferase 24 U/L (5-37); Bilirubin Direct 0.7 mg/dL (0.0-0.5); Total Protein 7.5 g/dL (6.5-8.0)
== END 2021-09-18 11:02 | disposition home or self-care (01) ==
LOC: HO.LAB 11:01
PROVIDERS: PCP Physician Assistant; Visit Provider Physician Assistant
DX: E80.6 Other disorders of bilirubin metabolism (principal)
CPT/HCPCS: 36415; 80076

== ENCOUNTER 2022-02-08 10:38 | Outpatient (REF) | payer OTHER, SELFPAY ==
--- NOTE | ~2022-02-08 | XR_ITS ---
EXAMINATION: XR SHOULDER, LEFT CLINICAL INFORMATION: Primary osteoarthritis COMPARISON: Previous x-ray November 2017 TECHNIQUE: AP external rotation, Grashey, scapular Y, and axillary views of the left shoulder. FINDINGS: The bones and soft tissues are normal. No fracture. Glenohumeral and acromioclavicular alignment is anatomic with normal joint space. No abnormal soft tissue calcifications. XR/XR shoulder LT min 2V IMPRESSION: Normal left shoulder.
== END 2022-02-08 10:39 | disposition home or self-care (01) ==
LOC: HO.XRAY 10:38
PROVIDERS: PCP Physician Assistant; Visit Provider Physician Assistant
DX: M19.012 Primary osteoarthritis, left shoulder (principal); Z13.29 Encounter for screening for other suspected endocrine disorder; Z13.1 Encounter for screening for diabetes mellitus
CPT/HCPCS: 73030

== ENCOUNTER 2022-06-23 08:40 | Emergency (ER) | payer OTHER, SELFPAY ==
[2022-06-23 08:43] VITALS: BP 122/65; PULSE 60; RESP 16; TEMP 36.3; O2SAT 100; BMI 23.1
[2022-06-23 09:06] VITALS: BP 125/74; PULSE 62; RESP 20; TEMP 36.5; O2SAT 99
[2022-06-23] MEDS: Ondansetron ODT 4 MG TAB.RAPDIS TRANSLINGU (09:29)
--- NOTE | 2022-06-23 09:33 | ED_ITS ---
HPI - Headache General Chief Complaint: Headache Stated Complaint: feeling weak, stomachache, hot flashes Time Seen by Provider: 06/23/22 09:05 Source: patient Mode of arrival: ambulatory Limitations: no limitations History of Present Illness MD elicited complaint: headache and migraine Pertinent past history: migraines Onset (ago): day(s) (today at 730am) Onset description: gradually and while at rest Location: right and temporal Severity: moderate Quality & Timing: throbbing, dull, constant and progressively worsening Exacerbating factors: light and noise Relieving factors: nothing Context: occurred at rest and other (hx of migraines post a concussion at age 18, started back up again in the past two weeks) Associated symptoms: nausea and photophobia Treatments prior to arrival: none Related Data Home Medications Medication Instructions Recorded Confirmed No Known Home Meds 02/08/22 02/08/22 Allergies Allergy/AdvReac Type Severity Reaction Status Date / Time No Known Allergies Allergy Verified 02/08/22 10:15 Review of Systems Review of Systems: Constitutional : No Fever, No Chills, No Fatigue, pos hot flashes ENT/Mouth : No sore throat, No Rhinorrhea Eyes: No Eye Pain, No Swelling, No Redness Cardiovascular : No Chest Pain, No SOB, No Dyspnea on Exertion Respiratory : No Cough, No Sputum Gastrointestinal : pos Nausea, No Vomiting, No Diarrhea, No abdominal Pain Genitourinary : No Dysuria, No Urinary Frequency, No Hematuria, Musculoskeletal : No joint pain, No Myalgias, No Joint Swelling Skin : No Skin Lesions, No rash Neuro : No Weakness, No Numbness, No Dizziness, positive Headache Psych : No Anxiety/Panic, No Depression Heme/Lymph: No Bruising, No Bleeding,No Lymphadenopathy Endocrine : No Polyuria, No Polydipsia All other systems reviewed and are negative PMFSH Past Medical History Attestation statement: The following information was validated with the patient. Medical History Gilbert syndrome Kidney stone No known health problems Surgical History No history of previous surgery Family History Family History Mother No problems noted. Father No problems noted. Social History Social History Housing: Apartment Alcohol intake: current Alcohol intake frequency: 0-2 drinks per day Alcohol type: beer, wine and hard liquor Patient Tobacco Use Status: Current everyday Tobacco user e-Cigarette/Vaping Use: Never Used Use of substances other than those prescribed or required for medical reasons: Yes Substance Use Type: Marijuana Advance Directives: No Advance Directives Information Provided: Yes Current occupational status: unemployed Cognitive needs: No Hearing needs: No Vision needs: No Physical Exam Vital Signs: Vital Signs: Last Vital Signs Temp 97.7 F 06/23/22 09:06 Pulse 62 06/23/22 09:06 Resp 20 06/23/22 09:06 BP 125/74 06/23/22 09:06 Pulse Ox 99 06/23/22 09:06 O2 Del Method 06/23/22 09:06 BMI result Body Mass Index 23.1 Appearance: Alert. Oriented X3. No acute distress. Eyes: Pupils equal, round and reactive to light. ENT: Pharynx normal. Neck: Normal inspection. Neck supple. no meningeal signs CVS: Normal heart rate and rhythm. Pulses normal. Respiratory: No respiratory distress. Breath sounds normal. Abdomen: Soft and non-tender. Skin: Skin warm and dry. Normal skin color. Normal skin turgor. Extremities: No lower extremity edema. No calf ttp Neuro: Oriented X 3. No motor deficit. No sensory deficit. MDM - Headache MDM Narrative Medical decision making narrative: 26 yo male with hx of migraines that have increased recently likely due to working with loud music and lights he is not toxic no fevers he has no meningeal irritation, not toxic appearing, afebrile, hx of same in past - doubt SAH or [employer] infection at this time will treat with PO medications. He has appointment with his PCP today at 230 and wants to talk to him about MRI and starting on daily medications Discharge Plan Discharge Clinical Impression: Migraine Patient Disposition: Home, Self-Care Instructions: Migraine Headache (ED) Additional Instructions: return to ED for any worsening symptoms or concerns talk to your doctor about daily medications to prevent headaches Prescriptions: No Action No Known Home Meds Stand Alone Forms: Work/School Release
[2022-06-23] MEDS: SUMAtriptan succinate 50 MG TABLET PO (09:52)
== END 2022-06-23 10:24 | disposition home or self-care (01) ==
PROVIDERS: Emergency Provider Emergency Medicine; PCP Physician Assistant
DX: G43.909 Migraine, unspecified, not intractable, without status migrainosus (principal); F17.200 Nicotine dependence, unspecified, uncomplicated; F12.90 Cannabis use, unspecified, uncomplicated
CPT/HCPCS: 99283; 99284

== ENCOUNTER 2022-06-25 10:24 | Outpatient (REF) | payer OTHER, SELFPAY ==
--- NOTE | ~2022-06-25 | XR_ITS ---
EXAMINATION: XR SHOULDER, LEFT CLINICAL INFORMATION: Pain left shoulder COMPARISON: None TECHNIQUE: AP external rotation, Grashey, scapular Y, and axillary views of the left shoulder. FINDINGS: The bones and soft tissues are normal. No fracture. Glenohumeral and acromioclavicular alignment is anatomic with normal joint space. No abnormal soft tissue calcifications. XR/XR shoulder LT min 2V IMPRESSION: Normal left shoulder.
== END 2022-06-25 10:25 | disposition home or self-care (01) ==
LOC: HO.XRAY 10:24
PROVIDERS: PCP Physician Assistant; Visit Provider Physician Assistant
DX: M25.512 Pain in left shoulder (principal)
CPT/HCPCS: 73030

== ENCOUNTER 2023-02-17 16:13 | Emergency (ER) | payer OTHER, SELFPAY ==
[2023-02-17 16:15] VITALS: BP 119/70; PULSE 82; RESP 18; TEMP 37.3; O2SAT 95; BMI 21.9
--- NOTE | 2023-02-17 16:15 | ED.WOUNDLAC ---
HPI - Wound/Laceration General Chief Complaint: General Medical <Katy Kulkarni NP - Last Filed: 02/17/23 16:19> Stated Complaint: Lac on hand <Katy Kulkarni NP - Last Filed: 02/17/23 16:19> Time Seen by Provider: 02/17/23 16:26 <Katy Kulkarni NP - Last Filed: 02/17/23 16:19> Source: patient <PHILLY Aaron - Last Filed: 02/17/23 17:02> Mode of arrival: ambulatory <PHILLY Aaron - Last Filed: 02/17/23 17:02> Limitations: no limitations <PHILLY Aaron - Last Filed: 02/17/23 17:02> History of Present Illness HPI narrative: 27 yo right hand dominant male presenting to the ER for evaluation of abrasions and cuts to the knuckles on his right hand sustained a couple of hours ago when working on his car. He reports pain and scabs on his index through pinky fingers on his right hand. he is able to flex and extend then. no large or deep lacs. no numbness, tingling or weakness. no other injuries. tetanus is utd <PHILLY Aaron - Last Filed: 02/17/23 17:02> Onset (ago): hour(s) <PHILLY Aaron - Last Filed: 02/17/23 17:02> Extremity Location: right: hand <PHILLY Aaron - Last Filed: 02/17/23 17:02> Place: home <PHILLY Aaron - Last Filed: 02/17/23 17:02> Patient tetanus UTD: Yes <PHILLY Aaron - Last Filed: 02/17/23 17:02> Context: accidental <PHILLY Aaron - Last Filed: 02/17/23 17:02> Associated symptoms: pain <PHILLY Aaron - Last Filed: 02/17/23 17:02> Treatments prior to arrival: bandage <PHILLY Aaron Last Filed: 02/17/23 17:02> Related Data Home Medications: Previous Rx's Medication Instructions Recorded sumatriptan succinate 25 mg tablet See Rx Instructions PO .COMPLEX 9 06/23/22 days #30 tabs <Katy Kulkarni NP - Last Filed: 02/17/23 16:19> Allergies/Adverse Reactions: Allergies Allergy/AdvReac Type Severity Reaction Status Date / Time No Known Allergies Allergy Verified 02/17/23 16:15 <Katy Kulkarni NP - Last Filed: 02/17/23 16:19> Review of Systems Review of Systems: Yes all other systems are reviewed and are negative <PHILLY Aaron - Last Filed: 02/17/23 17:02> [facility] Past Medical History Medical History: Medical History Gilbert syndrome Kidney stone No known health problems <Katy Kulkarni NP - Last Filed: 02/17/23 16:19> Surgical History: Surgical History No history of previous surgery <Katy Kulkarni NP - Last Filed: 02/17/23 16:19> Family History Family History: Family History Mother No problems noted. Father No problems noted. <Katy Kulkarni NP - Last Filed: 02/17/23 16:19> Social History Social History: Social History Housing: Apartment Alcohol intake: current Alcohol intake frequency: 0-2 drinks per day Alcohol type: beer, wine and hard liquor Patient Tobacco Use Status: Never used Tobacco e-Cigarette/Vaping Use: Never Used Substance Use Type: Marijuana Advance Directives: No Advance Directives Information Provided: No Current occupational status: unemployed Cognitive needs: No Hearing needs: No Vision needs: No <Katy Kulkarni NP - Last Filed: 02/17/23 16:19> Physical Exam Vital Signs: Vital Signs: Last Vital Signs Temp 99.1 F 02/17/23 16:15 Pulse 82 02/17/23 16:15 Resp 18 02/17/23 16:15 BP 119/70 02/17/23 16:15 Pulse Ox 95 02/17/23 16:15 BMI result Body Mass Index 21.9 <Katy Kulkarni NP - Last Filed: 02/17/23 16:19> Vital Signs: Last Vital Signs Temp 99.1 F 02/17/23 16:15 Pulse 82 02/17/23 16:15 Resp 18 02/17/23 16:15 BP 119/70 02/17/23 16:15 Pulse Ox 95 02/17/23 16:15 BMI result Body Mass Index 21.9 <PHILLY Aaron - Last Filed: 02/17/23 17:02> Appearance: Alert. Oriented X3. No acute distress. HEENT: normal inspection CVS: Normal heart rate and rhythm. Pulses normal. Respiratory: No respiratory distress. Skin: Skin warm and dry. Normal skin color. Normal skin turgor. No rashes. Extremities: dorsal aspect of the right hand with superficial abrasions over the PIP joints of digits 2-5, FROM. NV intact distally. blood clot present on abrasion #4, able to be debrided off. superficial abrasion below Neuro: Oriented X 3. No motor deficit. No sensory deficit. <PHILLY Aaron - Last Filed: 02/17/23 17:02> Course Course Course Narrative: This is a rapid medical exam. Deferred additional HPI, ROS, PE to primary provider. 27 yo male here with no known medical problems, right hand dominant here with abrasions to right hand over the dorsal aspect of several digits. Unable to visualize wound beds in triage as there is crusting/dried blood. FROM of the hand. I placed some moistened dressings over the wounds. VSS <Katy Kulkarni NP - Last Filed: 02/17/23 16:19> Medical Decision Making Medical Decision Making MDM Narrative: 27 yo male presenting for abrasions w/ blood clots/scabs over his PIP joints on his right hand. Wounds were cleansed with normal saline and gently debrided. bacitracin and DSD applied. no evidence of fracture. no need for wounds repairs. local wound care discussed. stable for d/c home. <PHILLY Aaron - Last Filed: 02/17/23 17:02> Differential Diagnosis Differential Diagnoses: The differential diagnosis associated with the presentation includes <PHILLY Aaron - Last Filed: 02/17/23 17:02> superficial abrasions, deep laceration, contaminated wounds, finger fracture <PHILLY Aaron - Last Filed: 02/17/23 17:02> Critical Care Time Critical Care Time Critical Care Time: No <PHILLY Aaron - Last Filed: 02/17/23 17:02> Discharge Plan Discharge Clinical Impression: Abrasion of skin of finger of right hand <Katy Kulkarni NP - Last Filed: 02/17/23 16:19> Patient Disposition: Home, Self-Care <Katy Kulkarni NP - Last Filed: 02/17/23 16:19> Instructions: Abrasion (ED) <Katy Kulkarni NP - Last Filed: 02/17/23 16:19> Additional Instructions: keep clean and covered while at work use bacitracin 1 or 2 times per day allow open to air at night <Katy Kulkarni NP - Last Filed: 02/17/23 16:19> Prescriptions: No Action sumatriptan succinate 25 mg tablet See Rx Instructions PO .COMPLEX 9 Days Qty: 30 0RF Rx Instructions: take 1 tab at onset of headache; if no relief may repeat 1 tab after at least 2 hrs; max = 4 tabs/24 hr PO <Katy Kulkarni NP - Last Filed: 02/17/23 16:19>
[2023-02-17] MEDS: Bacitracin Oint 0.9 GM PACKET 1 APPL TOPICAL (17:03)
== END 2023-02-17 17:15 | disposition home or self-care (01) ==
PROVIDERS: Emergency Provider Emergency Medicine; PCP Physician Assistant
DX: S60.511A Abrasion of right hand, initial encounter (principal); X58.XXXA Exposure to other specified factors, initial encounter; Y93.9 Activity, unspecified; Y92.9 Unspecified place or not applicable; Y99.9 Unspecified external cause status
CPT/HCPCS: 99282; 99283

== ENCOUNTER 2023-10-18 14:39 | Outpatient (AMB) | payer OTHER, SELFPAY ==
[2023-10-18 14:40] VITALS: BP 130/80; PULSE 75; O2SAT 98; BMI 21.6
--- NOTE | 2023-10-18 14:40 | A.OFFPC_ITS ---
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 Accompanied by: Self / Same As Patient Allergies No Known Allergies Allergy (Verified 10/18/23 14:59) Medication List - Last Reconciled 10/18/23 by ALEKS Evans No Known Home Meds Tobacco use date assessed: 10/18/23 Dental Screening Dental Screen Date: 10/18/23 Did you have a dental visit in the last 12 months?: Yes Did you have a dental problem in the last 6 months where you did not have access to dental care?: No Was dental information given to patient?: Patient has dentist HPI numbness & tingling in wrist/fingers HPI Details Patient is a 28-year-old male who presents today for the same day visit due to left shoulder pain for many years now-describes pain as pushing down sensation. Also reports when moving his left arm his scapula gets dislocated, reports left shoulder clicking sensation. Reports numbness/tingling in his left shoulder that radiates up to his neck and slightly down to his low back and left 5th finger. Reports lifting weights, doing pushups. Does not take anything for pain. No shortness of breath or chest pain. Reports started with numbness/tingling couple months ago, and shoulder issue been going on for many years now. Reports he did have left wrist burn few months ago. [facility] Medical History Gilbert syndrome Kidney stone No known health problems Surgical History No history of previous surgery Family History Mother No problems noted. Father No problems noted. Social History Housing: Apartment Alcohol intake: current Alcohol intake frequency: 0-2 drinks per day Alcohol type: beer, wine and hard liquor Patient Tobacco Use Status: Never used Tobacco e-Cigarette/Vaping Use: Never Used Substance Use Type: Marijuana Current occupational status: unemployed Cognitive needs: No Hearing needs: No Vision needs: No Questionnaire PHQ-9 Over the last 2 weeks, how often have you been bothered by any of the following problems? 1. Little interest or pleasure in doing things: not at all 2. Feeling down, depressed, or hopeless: not at all 3. Trouble falling or staying asleep, or sleeping too much: not at all 4. Feeling tired or having little energy: not at all 5. Poor appetite or overeating: not at all 6. Feeling bad about yourself - or that you are a failure or have let yourself o r your family down: not at all 7. Trouble concentrating on things, such as reading the newspaper or watching television: not at all 8. Moving or speaking so slowly that other people could have noticed. Or the opposite - being so fidgety or restless that you have been moving around a lot more than usual: not at all 9. Thoughts that you would be better off or of hurting yourself in some way: not at all Total score: 0 Depression Screening Interpretation: Negative Depression Screening Done: Yes 15219 - PHQ-9 Billing: Yes Source: Developed by Drs. Pramod Reynoso, Maria Isabel Foley, Gael velarde nd colleagues, with an educational royce from [employer]. Thrive Questionnaire Date Thrive assessed: 10/18/23 I am a: Patient What is your living situation today?: I have a steady place to live Within the past 12 months, did the food you bought not last and you didn't have the money to get more?: Never true Within the past 12 months, did you worry whether your food would run out before you got money to buy more?: Never true Do you have trouble paying for medicines?: No Do you have trouble getting transportation to medical appointments?: No Do you have trouble paying your heating and electricity bill?: No Do you have trouble taking care of your child, family member or friend?: No Do you have trouble with day-to-day activities such as bathing, preparing meals, shopping, managing finances, etc.?: No Are you currently unemployed and looking for a job?: No Are you interested in more education?: No Please select the resources that you would like help with: None Currently or been in a relationship where the following occur: no concerns reported AUDIT C Alcohol Use Questionnaire (AUDIT-C) 1. How often do you have a drink containing alcohol?: Never 3. How often do you have six or more drinks on one occasion?: Never Total Score: 0 Score Reviewed/Action Taken: No DAVID-7 AMB Questionnaire DAVID-7 Date DAVID - 7 assessed: 10/18/23 Feeling nervous, anxious, or on edge: 0 = Not at all Not being able to stop or control worryin = Not at all Worrying too much about different things: 0 = Not at all Trouble relaxin = Not at all Being so restless that it is hard to sit still: 0 = Not at all Becoming easily annoyed or irritable: 0 = Not at all Feeling afraid as if something awful might happen: 0 = Not at all Total DAVID-7 score (0-4 normal; 5-9 mild; 10-14 moderate; 15-21 severe): 0 Source: Developed by Drs. Pramod Reynoso, Maria Isabel Foley, Gael Ramos and colleagues, with an educational royce from [employer]. DAVID-7 Assessment Billing DAVID-7 Assessment Tool: DAVID-7 Assessment 60134 Review of Systems Const Denies body aches, Denies chills, Denies fever(s) and Denies headache(s) ENT Denies dizziness, Denies otalgia, Denies headache(s), Denies nasal discharge, Denies sinus pain and Denies sore throat Card Denies chest pain, Denies edema, Denies lightheadedness and Denies dyspnea Resp Denies cough, Denies dyspnea and Denies wheezing GI Denies abdominal pain Musc Reports as per HPI, Denies myalgias, Reports arthralgias, Denies joint swelling, Reports numbness and Reports tingling Skin/Breast Denies rash Neuro Denies dizziness, Denies headache(s), Reports numbness and Reports tingling Aller/Immun Denies wheezing Physical exam (Primary Care) Vital Signs: Last Vital Signs Pulse 75 10/18/23 14:40 BP 130/80 10/18/23 14:40 Pulse Ox 98 10/18/23 14:40 Oxygen Delivery Method Room Air 10/18/23 14:40 BMI result Body Mass Index 21.6 Tobacco/Smoking Status: Tobacco use Status Tobacco use date assessed 10/18/23 10/18/23 14:46 Patient Tobacco Use Status Never used Tobacco 10/18/23 14:41 e-Cigarette/Vaping Use Never Used 10/18/23 14:41 PHQ-9: PHQ-9 Score PHQ-9: Total score 0 10/18/23 14:46 Depression Screening Interpretation: Negative Thrive Assessment: Date of Thrive Assessment Date Thrive assessed 10/18/23 10/18/23 14:46 Currently or been in a relationship where the following occur: no concerns reported Const General: cooperative and no acute distress Orientation/consciousness: patient oriented x3 HENMT Head: Yes normocephalic and Yes atraumatic Throat: Yes posterior oropharynx normal Eyes General: appearance normal, both eyes and all related structures Neck Neck: Yes normal visual inspection and Yes full ROM Resp Effort & Inspection: normal respiratory effort and able to speak in complete sentences Auscultation: clear to auscultation bilaterally, no crackles, no rales, no rhonchi and no wheezes Cardio Rate: regular rate Rhythm: regular rhythm Heart sounds: S1 normal heart sound present and S2 normal heart sound present Peripheral pulses: radial pulses present on the left GI Auscultation: normal bowel sounds Skin General skin exam: no rashes or lesions noted Neuro General: patient oriented x3 and CN's II-XI intact bilaterally Gait exam (Neuro): Normal gait present Motor exam (neuro): 5/5 motor strength present throughout Extrem Other: Left shoulder clicking sensation noted, mild pain with range of motion, with range of motion left scapula slightly dislocate-patient reports this been going on for years now General: Yes full ROM and No edema Assessment and Plan Assessment & Plan (1) Left shoulder pain: Code(s): M25.512 - Pain in left shoulder Plan: Will obtain left shoulder x-ray PT referral and orthopedics referral Patient can try [id number] Tylenol 650 mg every 6 hours as needed or ibuprofen 400 mg every 8 hours as needed for pain Encouraged heat/cold packs p.r.n. Hold off on heavy workout until improvement in symptoms Patient agreed with the plan Keep appointment with PCP as scheduled Orders: Orders PT Evaluation and Treatment Today M25.512 - Pain in left shoulder XR shoulder LT min 2V Today M25.512 - Pain in left shoulder Referrals Orthopedics Referral M25.512 - Pain in left shoulder Coding Level of Care Code Est Pt Level 3 (17692) Diagnoses Left shoulder pain M25.512 Additional Codes DAVID-7 Assessment Billing - DAVID-7 Assessment Tool: DAVID-7 Assessment 18892 ([id number])
== END 2023-10-18 15:13 | disposition home or self-care (01) ==
PROVIDERS: PCP Physician Assistant; Visit Provider Nurse Practitioner Family
DX: M25.512 Pain in left shoulder (principal)
CPT/HCPCS: 99213

== ENCOUNTER 2023-10-18 15:30 | Outpatient (REF) | payer OTHER, SELFPAY ==
--- NOTE | ~2023-10-18 | XR_ITS ---
EXAMINATION: XR SHOULDER, LEFT CLINICAL INFORMATION: Pain in the left shoulder COMPARISON: X-ray series of the left shoulder June 2022. TECHNIQUE: AP external rotation, Grashey, scapular Y, and axillary views of the left shoulder. FINDINGS: The bones and soft tissues are normal. No fracture. Glenohumeral and acromioclavicular alignment is anatomic with normal joint space. No abnormal soft tissue calcifications. XR/XR shoulder LT min 2V IMPRESSION: Normal left shoulder.
== END 2023-10-18 15:31 | disposition home or self-care (01) ==
LOC: HO.XRAY 15:30
PROVIDERS: PCP Physician Assistant; Visit Provider Nurse Practitioner Family
DX: M25.512 Pain in left shoulder (principal)
CPT/HCPCS: 73030

== ENCOUNTER 2023-11-18 07:59 | Outpatient (AMB) | payer OTHER, SELFPAY ==
[2023-11-18 08:06] VITALS: BMI 21.6
--- NOTE | 2023-11-18 08:06 | A.OFFVIS_ITS ---
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 Patient reports pain has been present for many years, denies injury however reports lifting weights and doing pushups. States numbness and tingling in his left shoulder that radiates up to his neck and slightly down to his low back and left 5th finger. States with certain movements of arm his scapula gets dislocated and feels a clicking sensation. 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 He states he has pain in his left shoulder as well as numbness and tingling which radiates up to his neck down to his left 5th finger, lower back and left 5th toe. He also feels his scapula/shoulder region is unstable with certain movements and he hears a clicking sensation. He also c/o pinching sensation between his clavicle and shoulder. He denies any previous injury and has not had any treatment in the past He attributes his pain to playing basketball, lifting weight and doing pushups however he has not been doing these activities for the past 2 weeks. [facility] Medical History Gilbert syndrome Kidney stone No known health problems Surgical History No history of previous surgery Family History Mother No problems noted. Father No problems noted. Social History Housing: Apartment Alcohol intake: current Alcohol intake frequency: 0-2 drinks per day Alcohol type: beer, wine and hard liquor Patient Tobacco Use Status: Never used Tobacco e-Cigarette/Vaping Use: Never Used Substance Use Type: Marijuana Current occupational status: unemployed Cognitive needs: No Hearing needs: No Vision needs: No Review of Systems Const All systems reviewed & are unremarkable except as noted in HPI and below Physical Exam Vital Signs: BMI result Body Mass Index 21.6 Const General: cooperative, healthy appearing, comfortable, no acute distress, well developed and alert Orientation/consciousness: patient oriented x3 HEENT Head: Yes normal to inspection, Yes normocephalic and Yes atraumatic Eyes General: appearance normal, both eyes and all related structures Resp Effort & Inspection: normal respiratory effort and able to speak in complete sentences Cardio Rate: regular rate Peripheral pulses: Peripheral pulses 2+ throughout GI Palpation (GI): Soft to palpation Skin Lesions: no lesions Rashes: no rashes Neuro General: patient oriented x3 Extrem Other: Left shoulder normal to inspection. Tenderness over the bicipital groove and along the deltoid region of the shoulder. Forward flexion to 175, external rotation to 90, internal rotation to S1. 5/5 RTC strength. He has discomfort iwth apprehension on the left when compared to the contralateral side. Negative Porter and cross body abduction. NVI. Results Reviewed Results Reviewed: X-rays of the left shoulder obtained on 10/18/23 show negative for any acute or chronic abnormalities. Assessment & Plan Assessment & Plan (1) Instability of left shoulder joint: Code(s): M25.312 - Other instability, left shoulder Plan Given his chronic sensation of instability and failure with conservative treatment including physical therapy and exercises and MRI arthrogram of the left shoulder was ordered in the office today. We will also obtain an EMG nerve conduction study of MIGUEL to further evaluate the source of his symptoms. He will see us back once the study is complete. Orders: Orders MR shoulder LT w con Today M25.312 - Other instability, left shoulder NE nerve conduction velocity Today R20.0 - Anesthesia of skin, R20.2 - Paresthesia of skin NE electromyogram (EMG) Today R20.0 - Anesthesia of skin, R20.2 - Paresthesia of skin Patient Instructions: Scribed for Hannah He PA-C, by Martin Ferguson medical transcriber, on 11/18/2023 at 8:00 AM AMRITA. IHannah PA-C, have personally reviewed and agree with the information entered by the scribe. Coding Level of Care Code New Pt Level 3 (20967) Diagnoses Instability of left shoulder joint M25.312
== END 2023-11-18 09:26 | disposition home or self-care (01) ==
PROVIDERS: PCP Physician Assistant; Visit Provider Physician Assistant
DX: M25.312 Other instability, left shoulder (principal)
CPT/HCPCS: 99203

== ENCOUNTER → 2023-11-18 07:59 | Outpatient (BNVA) | payer OTHER, SELFPAY | PROVIDERS: PCP Physician Assistant; Visit Provider Physician Assistant | DX: M25.312 Other instability, left shoulder (principal) | CPT/HCPCS: 99202 ==

== ENCOUNTER 2023-11-23 08:41 | Outpatient (AMB) | payer OTHER, SELFPAY ==
[2023-11-23 08:53] VITALS: BP 100/80; PULSE 78; O2SAT 99; BMI 22.3
--- NOTE | 2023-11-23 08:53 | A.OFFPC_ITS ---
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 Patient's past medical history significant for major depressive. Left scapula and shoulder discomfort. 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 Has been evident over last 2 years and has follow-up recently with orthopedics whom recommend MRI and EMG of the left upper extremity. Will be starting physical therapy soon. .. Depression: Has resolved .. Concern--> reports noting skin irritation over his scrotum. Has used hydrocortisone which has been helpful though skin irritation reoccurs. Will supply with combo antifungal and steroid cream. [facility] Medical History (Updated 11/23/23 @ 09:50 by Tai English PA-C) Cluster headache GERD without esophagitis Gilbert syndrome Kidney stone No known health problems Surgical History No history of previous surgery Family History Mother No problems noted. Father No problems noted. Social History Housing: Apartment Alcohol intake: current Alcohol intake frequency: 0-2 drinks per day Alcohol type: beer, wine and hard liquor Patient Tobacco Use Status: Never used Tobacco e-Cigarette/Vaping Use: Never Used Substance Use Type: Marijuana Current occupational status: unemployed Cognitive needs: No Hearing needs: No Vision needs: No Questionnaire PHQ-9 Over the last 2 weeks, how often have you been bothered by any of the following problems? 1. Little interest or pleasure in doing things: not at all 2. Feeling down, depressed, or hopeless: not at all 3. Trouble falling or staying asleep, or sleeping too much: not at all 4. Feeling tired or having little energy: not at all 5. Poor appetite or overeating: not at all 6. Feeling bad about yourself - or that you are a failure or have let yourself or your family down: not at all 7. Trouble concentrating on things, such as reading the newspaper or watching te levision: not at all 8. Moving or speaking so slowly that other people could have noticed. Or the opposite - being so fidgety or restless that you have been moving around a lot more than usual: not at all 9. Thoughts that you would be better off or of hurting yourself in some way: not at all Total score: 0 Depression Screening Interpretation: Negative Depression Screening Done: Yes 01723 - PHQ-9 Billing: Yes Source: Developed by Drs. Pramod Reynoso, Maria Isabel Foley, Gael Ramos and colleagues, with an educational royce from [employer]. Thrive Questionnaire Date Thrive assessed: 11/23/23 I am a: Patient What is your living situation today?: I have a steady place to live Within the past 12 months, did the food you bought not last and you didn't have the money to get more?: Never true Within the past 12 months, did you worry whether your food would run out before you got money to buy more?: Never true Do you have trouble paying for medicines?: No Do you have trouble getting transportation to medical appointments?: No Do you have trouble paying your heating and electricity bill?: No Do you have trouble taking care of your child, family member or friend?: No Do you have trouble with day-to-day activities such as bathing, preparing meals, shopping, managing finances, etc.?: No Are you currently unemployed and looking for a job?: No Are you interested in more education?: No Please select the resources that you would like help with: None AUDIT C Alcohol Use Questionnaire (AUDIT-C) 1. How often do you have a drink containing alcohol?: Never 3. How often do you have six or more drinks on one occasion?: Never Total Score: 0 Score Reviewed/Action Taken: No DAVID-7 AMB Questionnaire DAVID-7 Date DAVID - 7 assessed: 11/23/23 Feeling nervous, anxious, or on edge: 0 = Not at all Not being able to stop or control worryin = Not at all Worrying too much about different things: 0 = Not at all Trouble relaxin = Not at all Being so restless that it is hard to sit still: 0 = Not at all Becoming easily annoyed or irritable: 0 = Not at all Feeling afraid as if something awful might happen: 0 = Not at all Total DAVID-7 score (0-4 normal; 5-9 mild; 10-14 moderate; 15-21 severe): 0 Source: Developed by Drs. Pramod Reynoso, Maria Isabel Foley, Gael Ramos and colleagues, with an educational royce from [employer]. DAVID-7 Assessment Billing DAVID-7 Assessment Tool: DAVID-7 Assessment 02162 Review of Systems Const Denies headache(s) Eyes Denies loss of vision ENT Denies vertigo, Denies dizziness, Denies headache(s) and Denies sore throat Card Denies chest pain, Denies leg edema and Denies lightheadedness Resp Denies cough, Denies hemoptysis and Denies wheezing GI Denies abdominal pain, Denies melena, Denies constipation, Denies diarrhea and Denies vomiting Denies dysuria, Denies urinary frequency and Denies urinary urgency Musc Denies arthralgias, Denies joint swelling, Denies numbness and Denies tingling Neuro Denies Abnormal speech present, Denies behavioral changes, Denies vertigo, Denies dizziness, Denies headache(s), Denies loss of vision, Denies memory loss, Denies numbness and Denies tingling Psych Denies anxiety, Denies behavioral changes, Denies depression, Denies memory loss and Denies panic attacks Travis/Lymph Denies easy bleeding and Denies easy bruising Aller/Immun Denies wheezing Physical exam (Primary Care) Vital Signs: Last Vital Signs Pulse 78 11/23/23 08:53 BP 100/80 11/23/23 08:53 Pulse Ox 99 11/23/23 08:53 Oxygen Delivery Method Room Air 11/23/23 08:53 BMI result Body Mass Index 22.3 Tobacco/Smoking Status: Tobacco use Status Tobacco use date assessed 11/23/23 11/23/23 09:00 Patient Tobacco Use Status Never used Tobacco 11/23/23 09:00 e-Cigarette/Vaping Use Never Used 11/23/23 09:00 PHQ-9: PHQ-9 Score PHQ-9: Total score 0 11/23/23 09:00 Depression Screening Interpretation: Negative Thrive Assessment: Date of Thrive Assessment Date Thrive assessed 11/23/23 11/23/23 09:00 Const General: healthy appearing, no acute distress, alert and awake Nutritional Appearance: well nourished Orientation/consciousness: oriented to person, oriented to place and oriented to time HENMT Ears: TM's normal bilaterally General nose exam: Normal nasal mucous membranes and turbinates present Eyes Conjunctivae: conjunctivae normal Sclerae: sclerae normal Pupils: Equal, round and reactive pupils present Neck Neck: Yes no lymphadenopathy and Yes no JVD Thyroid: Thyroid normal Carotids: no bruits Resp Effort & Inspection: normal respiratory effort and not tachypneic Auscultation: no crackles, no rales, no rhonchi and no wheezes Cardio Rate: regular rate Rhythm: regular rhythm Heart sounds: no murmurs and normal S1 and S2 GI Palpation (GI): Soft to palpation, nontender, no hepatomegaly and no splenomegal y Auscultation: normal bowel sounds Skin General skin exam: no rashes or lesions noted and dry skin Neuro General: oriented to person, oriented to place and oriented to time Cranial nerves: Yes Equal, round and reactive pupils present Speech: No Abnormal speech present Gait exam (Neuro): Normal gait present Motor exam (neuro): no tremor noted Extrem Right upper extremity: full ROM Left upper extremity: full ROM Right lower extremity: full ROM; no edema Left lower extremity: full ROM; no edema Psych Mental Status: mental status grossly normal Speech and movement: Normal speech and movement present Affect: normal affect Attitude: cooperative Thought process: Normal thought process present Assessment and Plan Assessment & Plan (1) Instability of left shoulder joint: Code(s): M25.312 - Other instability, left shoulder Plan: Has followed up with Orthopedics. Has some kind of a subluxation of his left scapula. Also has nerve impingement in his neck and shoulder. Will be sent for and EMG of his left upper extremity. Will be starting physical therapy in near future. (2) Left shoulder pain: Code(s): M25.512 - Pain in left shoulder Qualifiers: Chronicity: unspecified Qualified Code(s): M25.512 - Pain in left shoulder Plan: As above (3) Jock itch: Code(s): B35.6 - Tinea cruris Plan: Reports having a skin irritation over his scrotum. Had tried to hydrocortisone which resolved symptoms though they have came back. Will trial combo antifungal / steroid (4) Screening for diabetes mellitus (DM): Code(s): Z13.1 - Encounter for screening for diabetes mellitus (5) MDD (major depressive disorder), recurrent episode, moderate: Code(s): F33.1 - Major depressive disorder, recurrent, moderate Plan: PHQ-9 score 0. Patient's history major depressive disorder though has resolved without medication. Currently in a better mind set. Interested in further mental health therapy Orders: Orders Comprehensive Squire. Panel Fast Today Z13.1 - Encounter for screening for diabetes mellitus Medications: New clotrimazole-betamethasone 1-0.05 % 1 appl topical BID 30 days 45 grams 1RF B35.6 - Tinea cruris, Z13.1 - Encounter for screening for diabetes mellitus Coding Level of Care Code Est Pt Level 4 (55965) Diagnoses Instability of left shoulder joint M25.312 Left shoulder pain, unspecified chronicity M25.512 Chronicity: unspecified Jock itch B35.6 Screening for diabetes mellitus (DM) Z13.1 MDD (major depressive disorder), recurrent episode, moderate F33.1 Additional Codes DAVID-7 Assessment Billing - DAVID-7 Assessment Tool: DAVID-7 Assessment [id number] ([id number])
== END 2023-11-23 09:34 | disposition home or self-care (01) ==
PROVIDERS: PCP Physician Assistant; Visit Provider Physician Assistant
DX: M25.312 Other instability, left shoulder (principal); M25.512 Pain in left shoulder; B35.6 Tinea cruris
CPT/HCPCS: 99214

== ENCOUNTER 2023-11-24 10:06 | Outpatient (REF) | payer OTHER, SELFPAY ==
[2023-11-24 11:34] LABS: Alanine Aminotransferase 17 U/L (0-40); Albumin Level 4.7 g/dL (3.5-5.0); Alkaline Phosphatase 58 U/L (39-117); Anion Gap 10 (12-20); Aspartate Amino Transferase 26 U/L (5-37); Bilirubin Total 2.2 mg/dL (0.0-1.0); Blood Urea Nitrogen 9 mg/dL (9-16); Carbon Dioxide 31 mmol/L (22-29); Chloride 104 mmol/L (96-108); Estimated Glomerular Filt Rate > 60; Glucose Fasting 96 mg/dL (60-99); Potassium 4.3 mmol/L (3.3-5.1); Sodium 141 mmol/L (135-145); Total Protein 7.7 g/dL (6.5-8.0)
== END 2023-11-24 10:07 | disposition home or self-care (01) ==
LOC: HO.LAB 10:06
PROVIDERS: Visit Provider Physician Assistant
DX: Z13.1 Encounter for screening for diabetes mellitus (principal)
CPT/HCPCS: 36415; 80053

== ENCOUNTER 2023-12-13 13:19 | Outpatient (REF) | payer OTHER, SELFPAY ==
--- NOTE | ~2023-12-13 | FL_ITS ---
LEFT SHOULDER ARTHROGRAM INDICATIONS: Left shoulder pain. Intra-articular gadolinium injection is needed prior to MRI. PROCEDURE: Risks and benefits and possible complications were discussed with the patient and the consent form was signed. The patient was placed supine on the fluoroscopy table. The left shoulder was prepped and draped in normal sterile fashion. 1% buffered lidocaine was used for anesthesia. A 22-gauge spinal needle was used to access the shoulder joint. Intra-articular position of the needle within the shoulder joint was verified using 3 cc of Omnipaque 300. A total of 10 mL of gadolinium/saline (1:200) contrast mixture was then injected into the shoulder joint. The needle was then removed and a Band-Aid was applied to the injection site. The patient tolerated the procedure well and was sent for to MRI. There were no immediate complications. FL/FL arthrogram shoulder LT IMPRESSION: Successful intra-articular instillation of dilute gadolinium into the left shoulder joint using fluoroscopic guidance. The patient will undergo subsequent MRI. The procedure was performed by teddy Tilley PA-C, and directly supervised by Dr. Kent.
--- NOTE | ~2023-12-13 | MR_ITS ---
EXAMINATION: MR SHOULDER WITH CONTRAST, LEFT CLINICAL INFORMATION: Left shoulder pain. Instability. COMPARISON: Left shoulder fluoroscopic arthrography done earlier the same day and most recent left shoulder radiographs dated 10/18/2023. TECHNIQUE: MRI of the shoulder was performed following the intra-articular administration of a dilute gadolinium-containing solution (arthrogram) on a high-field scanner. FINDINGS: ROTATOR CUFF: Intact. No muscle atrophy or fatty infiltration. BICEPS: Intact. CORACOACROMIAL ARCH: The undersurface of the acromion is flat with no subacromial spur. The acromioclavicular joint is normal. LABRUM/CAPSULE: Evaluation limited secondary to patient motion. Intermediate signal extending through the undersurface of the anterior and anteroinferior labrum with mild periosteal reaction, likely indicating a fibrous Bankart lesion. Additional intermediate signal within the undersurface of the superior labrum which could represent a nondisplaced undersurface tear. Intact joint capsule. GLENOHUMERAL JOINT/MARROW: Humeral head well seated within the glenoid. No acute fracture or dislocation. Intact articular cartilage. MR/MR shoulder LT w con IMPRESSION: 1. Evaluation of the labrum somewhat limited due to patient motion. Intermediate signal extending through the undersurface of the anterior and anteroinferior labrum with mild periosteal reaction, which could indicate a fibrous Bankart lesion. Additional intermediate signal within the undersurface of the superior labrum which could represent a nondisplaced undersurface tear. 2. No rotator cuff tendon tear.
[2023-12-13] MEDS: gadobutroL 2 ML VIAL IVPUSH (14:28)
== END 2023-12-13 13:20 | disposition home or self-care (01) ==
LOC: HO.XRAY 13:19
PROVIDERS: PCP Physician Assistant; Visit Provider Physician Assistant
DX: M25.312 Other instability, left shoulder (principal)
CPT/HCPCS: 23350; 73040; 73222; A9585

== ENCOUNTER → 2023-12-13 13:50 | Outpatient (BNV) | payer OTHER, SELFPAY | PROVIDERS: PCP Physician Assistant; Visit Provider Radiology Diagnostic Radiology | DX: M25.312 Other instability, left shoulder (principal) | CPT/HCPCS: 23350; 73040 ==

== ENCOUNTER 2023-12-21 14:27 | Outpatient (REF) | payer OTHER, SELFPAY ==
--- NOTE | 2023-12-21 14:30 | EMG_ITS ---
Chief complaint: Hyperextension injury of left shoulder more than 5 years ago, during basketball. Recurrent subluxation of left shoulder. Left scapular winging noted. Numbness on left 4th and 5th digits. Reason for referral: Evaluate for brachial plexopathy Referred by: Hannah FRAGA Procedure done: Left upper extremity NCS/EMG Precautions and/or limitations: None The limb temperature was monitored continuously and remained between 32-36 degrees C during the performance of the NCS. Nerve Conduction Studies Anti Sensory Summary Table ?Stim Site NR Onset (ms) Norm Onset (ms) Peak (ms) Norm Peak (ms) O-P Amp (?V) Norm O-P Amp Site1 Site2 Delta-0 (ms) Dist (cm) Avelino (m/s) Norm Avelino (m/s) Left Lat Ante Brach Cutan Anti Sensory (Lat Forearm) Lat Biceps ? 1.4 1.7 9.9 Lat Biceps Lat Forearm 1.4 0.0 Left Med Ante Brach Cutan Anti Sensory (Med Forearm) Elbow NR Elbow Med Forearm 0.0 Left Median Anti Sensory (2nd Digit) Wrist ? 2.6 3.3 <3.6 37.8 >10 Wrist 2nd Digit 2.6 14.0 54 Left Radial Anti Sensory (Thumb) Forearm ? 2.0 2.3 <3.1 20.0 Forearm Thumb 2.0 0.0 Left Ulnar Anti Sensory (5th Digit) Wrist ? 2.6 3.5 <3.7 19.4 >15.0 Wrist 5th Digit 2.6 14.0 54 Motor Summary Table ?Stim Site NR Onset (ms) Norm Onset (ms) O-P Amp (mV) Norm O-P Amp iAmp (mV) Amp (1st) (%) Site1 Site2 Delta-0 (ms) Dist (cm) Avelino (m/s) Norm Avelino (m/s) Left Median Motor (Abd Poll Brev) Wrist ? 3.5 <3.9 18.7 >4.5 21.6 100.0 Elbow Wrist 3.3 18.0 55 >45 Elbow ? 6.8 18.3 21.3 97.9 Left Ulnar Motor (Abd Dig Minimi) Wrist ? 2.6 <3.0 9.0 >5 12.3 100.0 B Elbow Wrist 2.9 19.0 66 >45 B Elbow ? 5.5 9.2 12.5 102.2 A Elbow B Elbow 1.2 10.0 83 >45 A Elbow ? 6.7 9.0 12.4 100.0 EMG ?Side Muscle Nerve Root Ins Act Fibs Psw Amp Dur Poly Recrt Int Pat Comment Left 1stDorInt Ulnar C8-T1 Nml Nml Nml Nml Nml 0 Nml Complete Left FlexCarRad Median C6-7 Nml Nml Nml Nml Nml 0 Nml Complete Left Biceps Musculocut C5-6 Nml Nml Nml Nml Nml 0 Nml Complete Left Triceps Radial C6-7-8 Nml Nml Nml Nml Nml 0 Nml Complete Left Deltoid Axillary C5-6 Nml Nml Nml Nml Nml 0 Nml Complete Left BrachioRad Radial C5-6 Nml Nml Nml Nml Nml 0 Nml Complete Left Supraspinatus SupraScap C5-6 Nml Nml Nml Nml Nml 0 Nml Complete Paraspinal EMG ?Side Muscle Nerve Root Ins Act Fibs Psw Comment Left Cervical Upper Rami Nml Nml Nml Left Cervical Mid Rami Nml Nml Nml Left Cervical Lower Rami Nml Nml Nml FINDINGS: Left MAC showed absent response. All other nerves tested were within normal. Concentric needle EMG was performed in selected muscles of the left upper extremity and cervical paraspinals. Study did not reveal signs of electric abnormalities as shown in the table below. IMPRESSION: 1. There are electrodiagnostic findings suggestive of left lower trunk plexopathy. 3. There is no electrodiagnostic evidence for median neuropathy, ulnar neuropathy, or cervical radiculopathy. CLINICAL COMMENT: Findings above consistent with symptoms and history. However, left MAC is technically difficult to obtain even in normal subjects. Also, there is no active denervation seen on needle EMG. Correlate clinically. Thank you for your kind referral. Reba Ballesteros MD, ARA Board Certified, [place] Board [employer] and Rehabilitation (ABPMR) Board Certified, [place] Board [employer] Electrodiagnostic [employer] (ABEM) [place] [id number] [facility]
== END 2023-12-21 14:28 | disposition home or self-care (01) ==
LOC: HO.NEURO 14:27
PROVIDERS: PCP Physician Assistant; Visit Provider Physician Assistant
DX: R20.0 Anesthesia of skin (principal); R20.2 Paresthesia of skin
CPT/HCPCS: 95886; 95910

== ENCOUNTER → 2023-12-21 14:30 | Outpatient (BNV) | payer OTHER, SELFPAY | PROVIDERS: PCP Physician Assistant; Visit Provider Physical Medicine & Rehabilitation | DX: G54.0 Brachial plexus disorders (principal) | CPT/HCPCS: 95886; 95910 ==

== ENCOUNTER 2024-01-09 09:15 | Outpatient (AMB) | payer OTHER, SELFPAY ==
--- NOTE | 2024-01-09 09:16 | A.OFFVIS_ITS ---
Intake Vital Signs 01/09/24 09:18 Height 5 ft 4 in Weight 130 lb BMI 22.3 Intake Visit Reasons: ov- MRI Shoulder LT review Intake Note: Vijay a 28 year old right hand dominant male presents today for an EMG and MRI review of left shoulder. Patient reports no change in symptoms, states at times he has a burning sensation in his shoulder. Allergies No Known Allergies Allergy (Verified 01/09/24 09:19) HPI ov- MRI Shoulder LT review HPI Details 28-year-old right hand dominant male who returns to the office today for an MRI review of left shoulder. He states he has improvement in his numbness however he does c/o pain and burning sensation in his shoulder. He has no other concerns today. [facility] Medical History (Updated 01/09/24 @ 10:16 by Hannah He PA-C) Cluster headache GERD without esophagitis Gilbert syndrome Kidney stone No known health problems Surgical History No history of previous surgery Family History Mother No problems noted. Father No problems noted. Social History Housing: Apartment Alcohol intake: current Alcohol intake frequency: 0-2 drinks per day Alcohol type: beer, wine and hard liquor Patient Tobacco Use Status: Never used Tobacco e-Cigarette/Vaping Use: Never Used Substance Use Type: Marijuana Current occupational status: unemployed Cognitive needs: No Hearing needs: No Vision needs: No Review of Systems Const All systems reviewed & are unremarkable except as noted in HPI and below Physical Exam Vital Signs: BMI result Body Mass Index 22.3 Const General: cooperative, healthy appearing, comfortable, no acute distress, well developed and alert Orientation/consciousness: patient oriented x3 HEENT Head: Yes normal to inspection, Yes normocephalic and Yes atraumatic Eyes General: appearance normal, both eyes and all related structures Resp Effort & Inspection: normal respiratory effort and able to speak in complete sentences Cardio Rate: regular rate Peripheral pulses: Peripheral pulses 2+ throughout GI Palpation (GI): Soft to palpation Skin Lesions: no lesions Rashes: no rashes Neuro General: patient oriented x3 Extrem Other: Left shoulder normal to inspection. Tenderness over the bicipital groove and along the deltoid region of the shoulder. Forward flexion to 175, external rotation to 90, internal rotation to S1. 5/5 RTC strength. He has discomfort iwth apprehension on the left when compared to the contralateral side. Negative Porter and cross body abduction. NVI. Results Reviewed Results Reviewed: MR shoulder LT w con 12/13/23 IMPRESSION: 1. Evaluation of the labrum somewhat limited due to patient motion. Intermediate signal extending through the undersurface of the anterior and anteroinferior labrum with mild periosteal reaction, which could indicate a fibrous Bankart lesion. Additional intermediate signal within the undersurface of the superior labrum which could represent a nondisplaced undersurface tear. 2. No rotator cuff tendon tear. EMG/NCS 12/21/23 IMPRESSION: 1. There are electrodiagnostic findings suggestive of left lower trunk plexopathy. 3. There is no electrodiagnostic evidence for median neuropathy, ulnar neuropathy, or cervical radiculopathy. Assessment & Plan Assessment & Plan (1) Instability of left shoulder joint: Code(s): M25.312 - Other instability, left shoulder (2) Trapezius muscle strain: Code(s): S46.819A - Strain of other muscles, fascia and tendons at shoulder and upper arm level, unspecified arm, initial encounter Qualifiers: Encounter type: subsequent encounter Laterality: left Qualified Code(s): S46.812D - Strain of other muscles, fascia and tendons at shoulder and upper arm level, left arm, subsequent encounter (3) Plexopathy: Code(s): G54.9 - Nerve root and plexus disorder, unspecified Plan We discussed the findings on EMG and MRI in the office today. At this time, he will proceed with physical therapy for the left shoulder and neck region to help with his trapezium and cervical myalgia. I would like to see him back in 6-8 weeks for reevaluation to see if he still has instability in his left shoulder and if he does, we will discuss potential surgical intervention. Orders: Orders PT Evaluation and Treatment Today G54.9 - Nerve root and plexus disorder, unspecified, M25.312 - Other instability, left shoulder, S46.819A - Strain of other muscles, fascia and tendons at shoulder and upper arm level, unspecified arm, initial encounter Patient Instructions: Scribed for Hannah He PA-C, by Martin Ferguson medical office coordinator, on 01/09/2024 at 9:15 AM [facility]RITA. I, Hannah He PA-C, have personally reviewed and agree with the information entered by the scribe. Coding Level of Care Code Est Pt Level 3 (13371) Diagnoses Instability of left shoulder joint M25.312 Strain of left trapezius muscle, subsequent encounter S46.812D Encounter type: subsequent encounter Laterality: left Plexopathy G54.9
[2024-01-09 09:18] VITALS: BMI 22.3
== END 2024-01-09 10:00 | disposition home or self-care (01) ==
PROVIDERS: PCP Physician Assistant; Visit Provider Physician Assistant
DX: M25.312 Other instability, left shoulder (principal); S46.812D Strain of other muscles, fascia and tendons at shoulder and upper arm level, left arm, subsequent encounter; G54.9 Nerve root and plexus disorder, unspecified
CPT/HCPCS: 99213

== ENCOUNTER → 2024-01-09 09:15 | Outpatient (BNVA) | payer OTHER, SELFPAY | PROVIDERS: PCP Physician Assistant; Visit Provider Physician Assistant | DX: S46.812D Strain of other muscles, fascia and tendons at shoulder and upper arm level, left arm, subsequent encounter (principal); M25.312 Other instability, left shoulder; G54.9 Nerve root and plexus disorder, unspecified | CPT/HCPCS: 99212 ==

== ENCOUNTER 2024-01-24 18:28 | Emergency (ER) | payer OTHER, SELFPAY ==
--- NOTE | ~2024-01-24 | XR_ITS ---
EXAMINATION: XR KNEE, LEFT CLINICAL INFORMATION: Fall, swelling. COMPARISON: Radiograph of the left knee 03/28/2010. TECHNIQUE: Four views of the left knee. FINDINGS: No fracture or subluxation. Joint spaces are maintained. No abnormal soft tissue calcifications. No joint effusion. XR/XR knee LT 3V IMPRESSION: Normal radiographic evaluation of the left knee.
[2024-01-24 18:38] VITALS: BP 125/75; PULSE 95; RESP 18; TEMP 37; O2SAT 99
[2024-01-24 22:30] VITALS: BP 112/57; PULSE 58; RESP 16; TEMP 36.9; O2SAT 97
--- NOTE | 2024-01-24 22:33 | MHC.EDTECH ---
PATIENT WAS CALL TO TRIAGE TO REASSESS ,EDUAR [facility] IS AWARE OF PATIENT LOW BP .
--- NOTE | 2024-01-24 22:50 | ED.GENADULT ---
HPI - General Adult General Chief complaint: Extremity Injury, Lower Stated complaint: left knee swollen Time Seen by Provider: 01/24/24 22:47 Source: patient, RN notes reviewed and old records reviewed Mode of arrival: ambulatory Limitations: no limitations History of Present Illness HPI narrative: 28-year-old male presents for evaluation of left knee pain. Patient was long boarding a few hours prior to arrival He reports that he tripped over the divider of the sidewalk He landed with his left knee directly onto the concrete Did not hit his head or lose consciousness He has no other complaints or concerns Related Data Previous Rx's Medication Instructions Recorded clotrimazole-betamethasone 1 1 appl topical BID 30 days #45 11/23/23 %-0.05 % topical cream grams Allergies Allergy/AdvReac Type Severity Reaction Status Date / Time No Known Allergies Allergy Verified 01/24/24 18:41 Review of Systems Constitutional: Constitutional: Denies body ache(s), Denies chills and Denies fever(s) ENT: Denies sore throat Cardiovascular: Cardiovascular: Denies chest pain and Denies dyspnea Respiratory: Respiratory: Denies cough and Denies dyspnea Gastrointestinal: Gastrointestinal: Denies abdominal pain, Denies nausea and Denies vomiting Musculoskeletal: Musculoskeletal: Reports arthralgias, Reports joint swelling and Denies limited range of motion Integumentary/Breasts: Skin/Breast: Reports wounds PMFSH Past Medical History Medical History (Updated 01/24/24 @ 22:51 by Hunter Kaminski) Cluster headache GERD without esophagitis Gilbert syndrome Kidney stone No known health problems Surgical History No history of previous surgery Family History Family History Mother No problems noted. Father No problems noted. Social History Social History Housing: Apartment Alcohol intake: current Alcohol intake frequency: 0-2 drinks per day Alcohol type: beer, wine and hard liquor Patient Tobacco Use Status: Never used Tobacco e-Cigarette/Vaping Use: Never Used Substance Use Type: Marijuana Advance Directives: No Advance Directives Information Provided: No Current occupational status: unemployed Cognitive needs: No Hearing needs: No Vision needs: No Physical Exam ED Vital Signs: Vital Signs - 24 hr 01/24/24 18:38 01/24/24 22:30 01/24/24 22:52 Temperature 98.6 F 98.4 F 98.2 F Pulse Rate 95 58 62 Respiratory Rate 18 16 18 Blood Pressure 125/75 112/57 L 115/67 Pulse Oximetry 99 97 98 Oxygen Delivery Method Room Air Room Air Room Air BMI result Body Mass Index 20.0 Const General: healthy appearing, comfortable, no acute distress, alert and awake Nutritional Appearance: well nourished Orientation/consciousness: patient oriented x3 HENMT Head: Yes normocephalic and Yes atraumatic Eyes Eyelids: Yes eyelids normal Conjunctivae: conjunctivae normal Sclerae: sclerae normal Corneas: corneas normal Pupils: Equal, round and reactive pupils present EOM: EOMs intact bilaterally Neck Neck: Yes full ROM Resp Effort & Inspection: normal respiratory effort, able to speak in complete sentences and not labored Skin Other: Mild superficial abrasion to the anterior surface of left knee. General skin exam: elasticity normal Neuro General: patient oriented x3 Cranial nerves: Yes Equal, round and reactive pupils present and Yes Bilaterally intact EOM present Cognition (Neuro): normal cognition Extrem Other: Patient has mild edema to left knee but has full range of motion flexion and extension. Negative valgus/varus strain Medications Administered Discontinued Medications Generic Name Dose Route Start Last Admin Trade Name Freq PRN Reason Stop Dose Admin Acetaminophen 975 mg 01/24/24 22:47 01/24/24 22:51 Acetaminophen 325 Mg Tablet PO 01/24/24 22:48 975 mg ONCE ONE Administration Medical Decision Making Medical Decision Making MDM Narrative: 28-year-old male presents for evaluation of left knee pain. X-ray negative for fracture. The patient reports his tetanus is up-to-date. He was given an Gallo wrap and discharged Differential Diagnosis Differential Diagnoses: The differential diagnosis associated with the presentation includes Knee contusion Knee abrasion Patellar fracture Knee sprain Independent Interpretation I performed an independent interpretation of an: Plain X-Ray (No patellar fracture) Radiology Impression Discussion of test interpretation with radiology: I have reviewed the radiologist's reading. (Normal radiographic evaluation of the left knee) Discharge Plan Discharge Clinical Impression: Acute pain of left knee Patient Disposition: Home, Self-Care Instructions: Knee Pain (ED) Additional Instructions: Your x-ray did not show any evidence of fracture. Ice the area every 4 hours for 10-15 minutes. Elevate the leg above your while resting. You may apply topical antibiotic such as Neosporin or bacitracin to the abrasion Follow-up with your primary doctor Prescriptions: No Action clotrimazole-betamethasone 1-0.05 % cream 1 appl topical BID 30 Days Qty: 45 1RF Interventions: ED Discharge Assessment Last Done: 01/24/24 22:52 Discharge Date/Time: 01/24/24 22:54
[2024-01-24] MEDS: Acetaminophen 325 MG TABLET 975 MG PO (22:51)
[2024-01-24 22:52] VITALS: BP 115/67; PULSE 62; RESP 18; TEMP 36.8; O2SAT 98
== END 2024-01-24 22:54 | disposition home or self-care (01) ==
PROVIDERS: Emergency Provider Emergency Medicine; PCP Physician Assistant
DX: M25.562 Pain in left knee (principal); M25.462 Effusion, left knee
CPT/HCPCS: 73562; 99283

== ENCOUNTER 2024-01-27 09:21 | Emergency (ER) | payer OTHER, SELFPAY ==
[2024-01-27 09:55] VITALS: BP 116/73; PULSE 80; RESP 16; TEMP 37.4; O2SAT 98; BMI 21.4
[2024-01-27 13:24] VITALS: BP 128/75; PULSE 74; RESP 16; TEMP 36.9; O2SAT 98
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
[2024-01-27 13:57] LABS: MANUAL DIFF FLAG NO
[2024-01-27 13:59] LABS: Basophils Percent Auto 0.2 % (0-2); Hematocrit 44.6 % (42.0-52.0); Hemoglobin 15.6 g/dl (14.0-18.0); Imm Gran Abs Auto 0.03 X10*3/uL (0.00-0.03); Imm Gran Pct Auto 0.3 % (0.0-0.4); Lymphocytes Absolute Auto 2.1 X10*3/uL (1.2-4.9); Mean Corpuscular Hemoglobin 30.9 pg (27.0-33.0); Mean Corpuscular Volume 88.3 fL (80.0-98.0); Mean Platelet Volume 8.4 fL (9.4-12.4); Monocytes Absolute Auto 0.3 X10*3/uL (0.1-1.2); Monocytes Percent Auto 3.1 % (2-11); Neutrophils Percent Auto 76.4 % (45-73); Platelet Count 326 X10*3/uL (160-400); Red Blood Count 5.05 X10*6/uL (4.60-5.80); Red Cell Distribution Width 11.4 % (11.0-16.0); White Blood Count 10.5 X10*3/uL (4.8-10.8)
[2024-01-27 14:01] LABS: Appearance Urine Clear; Color Urine Yellow; Glucose Urine UA Negative (Negative); Leukocyte Esterase Urine Negative (Negative); Nitrite Urine Negative (Negative); UMIC TRIGGER UACC YES; Urine Blood Small (1+) (Negative); Urine Ketones 80 mg/dL (Negative); Urine Protein Negative (Neg-Trace)
[2024-01-27 14:03] LABS: Bacteria Urine None Seen (None Seen); Hyaline Casts Urine 0-2 /LPF (0-2); Squamous Epithelial Cell Urine 0-2 /HPF (0-2); WBC Urine 0-5 /HPF (0-5)
[2024-01-27 14:17] LABS: Alanine Aminotransferase 15 U/L (0-40); Alkaline Phosphatase 76 U/L (39-117); Anion Gap 16 (12-20); Aspartate Amino Transferase 27 U/L (5-37); Bilirubin Total 2.3 mg/dL (0.0-1.0); Blood Urea Nitrogen 11 mg/dL (9-16); Carbon Dioxide 24 mmol/L (22-29); Chloride 101 mmol/L (96-108); Creatinine Clr Calc Pharmacy 91.5; Estimated Glomerular Filt Rate > 60; Glucose Random 84 mg/dL (60-115); Sodium 137 mmol/L (135-145); Total Protein 8.3 g/dL (6.5-8.0)
[2024-01-27 16:03] VITALS: BP 130/80; PULSE 70; RESP 18; TEMP 36.8; O2SAT 98
[2024-01-27 16:38] LABS: CT PCR NOT DETECTED (Not Detect.); NG PCR NOT DETECTED (Not Detect.)
[2024-01-30 04:11] LABS: Syphilis Screen Nonreactive (Nonreactive)
[2024-01-30 04:41] LABS: HIV Num 1 2.49 S/CO (0.00-0.99)
[2024-01-30 05:41] LABS: HIV AB/AG Nonreactive (Nonreactive); HIV Num 2 0.05 S/CO; HIV Num 3 0.05 S/CO
== END 2024-01-27 16:04 | disposition home or self-care (01) ==
PROVIDERS: Nurse Practitioner Family; Emergency Provider Emergency Medicine; PCP Physician Assistant
DX: S80.02XA Contusion of left knee, initial encounter (principal); R20.2 Paresthesia of skin; W18.30XA Fall on same level, unspecified, initial encounter; Y93.9 Activity, unspecified; Y92.9 Unspecified place or not applicable; Y99.9 Unspecified external cause status
CPT/HCPCS: 0353U; 36415; 80053; 81001; 85025; 86780; 87389; 99282; 99283

== ENCOUNTER 2024-02-06 11:11 | Outpatient (AMB) | payer OTHER, SELFPAY ==
--- NOTE | 2024-02-06 11:10 | A.OFFPC_ITS ---
Intake Visit Reasons: [facility]/Left knee swelling Importer Or Exporter Required: No Information Interpreted: non-clinical & clinical Felt Finishing Supervisor: Not Required per policy Accompanied by: Self / Same As Patient Allergies No Known Allergies Allergy (Verified 02/06/24 11:25) Medication List - Last Reconciled 02/06/24 by Tai English PA-C clotrimazole-betamethasone 1-0.05 % 1 appl topical BID 30 days Tobacco use date assessed: 11/23/23 Dental Screening Dental Screen Date: 11/23/23 HPI [facility]/Left knee swelling HPI Details Vijay is a 28-year-old male being evaluated today via telephone. He was seen at the ER for left knee injury where he landed on the solid concrete on his left knee. He had left knee swelling pain in neuropathic radiculopathy up left inner thigh and groin and down in the left foot. He reports his left knee pain and neuropathic symptoms have gotten better with rest. He also reports having left index and pinky finger numbness that radiated into his left elbow though has gotten better. He is also concerned about noting a small left lower abdominal quadrant lump. He would like imaging. [facility] Medical History (Updated 02/06/24 @ 11:36 by Tai English PA-C) Cluster headache GERD without esophagitis Gilbert syndrome Kidney stone No known health problems Surgical History No history of previous surgery Family History Mother No problems noted. Father No problems noted. Social History Housing: Apartment Alcohol intake: current Alcohol intake frequency: 0-2 drinks per day Alcohol type: beer, wine and hard liquor Patient Tobacco Use Status: Never used Tobacco e-Cigarette/Vaping Use: Never Used Substance Use Type: Marijuana Current occupational status: unemployed Cognitive needs: No Hearing needs: No Vision needs: No Questionnaire Thrive Questionnaire Date Thrive assessed: 11/23/23 DAVID-7 AMB Questionnaire DAVID-7 Date DAVID - 7 assessed: 11/23/23 Source: Developed by Drs. Pramod Reynoso, Maria Isabel B.W. Gael Foley and colleagues, with an educational royce from [employer]. Review of Systems Const Denies headache(s) Eyes Denies loss of vision ENT Denies vertigo, Denies dizziness, Denies headache(s) and Denies sore throat Card Denies chest pain, Denies leg edema and Denies lightheadedness Resp Denies cough, Denies hemoptysis and Denies wheezing GI Denies abdominal pain, Denies melena, Denies constipation, Denies diarrhea and Denies vomiting Denies dysuria, Denies urinary frequency and Denies urinary urgency Musc Denies arthralgias, Denies joint swelling, Denies numbness and Denies tingling Neuro Denies behavioral changes, Denies vertigo, Denies dizziness, Denies headache(s), Denies loss of vision, Denies memory loss, Denies numbness and Denies tingling Psych Denies anxiety, Denies behavioral changes, Denies depression, Denies memory loss and Denies panic attacks Travis/Lymph Denies easy bleeding and Denies easy bruising Aller/Immun Denies wheezing Physical exam (Primary Care) Tobacco/Smoking Status: Tobacco use Status Tobacco use date assessed 11/23/23 02/06/24 11:10 Patient Tobacco Use Status Never used Tobacco 02/06/24 11:10 e-Cigarette/Vaping Use Never Used 02/06/24 11:10 Thrive Assessment: Date of Thrive Assessment Date Thrive assessed 11/23/23 02/06/24 11:10 Telehealth Telehealth Location of provider rendering services: practice address Location of patient: address on file Patient Identification confirmed using: Name, : Yes Telehealth method: voice only Patient verbally consented to treatment: Yes Patient verbally consented to billing insurance company: Yes Patient informed of any privacy concerns related to visit: Yes Assessment and Plan Assessment & Plan (1) Left knee injury: Code(s): S89.92XA - Unspecified injury of left lower leg, initial encounter Qualifiers: Encounter type: subsequent encounter Qualified Code(s): S89.92XD - Unspecified injury of left lower leg, subsequent encounter Plan: As per HPI. Localize knee injury seems to be resolving on its own. (2) Paresthesia of lower limb: Code(s): R20.2 - Paresthesia of skin Plan: Patient does report bilateral lower leg and feet sensation of fullness. Will send patient for EMG testing to evaluate for neuropathy. (3) Left lower quadrant abdominal swelling, mass and lump: Code(s): R19.04 - Left lower quadrant abdominal swelling, mass and lump Plan: As per HPI patient has noted a lump over his left lower abdominal quadrant. Will send for ultrasound of the abdomen. Orders: Orders NE electromyogram (EMG) Today R20.2 - Paresthesia of skin US abdomen limited Today R10.32 - Left lower quadrant pain, R19.04 - Left lower quadrant abdominal swelling, mass and lump Vitamin B12 and Folate Today E53.8 - Deficiency of other specified B group vitamins, R20.2 - Paresthesia of skin Coding Level of Care Code Tele Est Pt Level 4 (28269) Diagnoses Injury of left knee, subsequent encounter S89.92XD Encounter type: subsequent encounter Paresthesia of lower limb R20.2 Left lower quadrant abdominal swelling, mass and lump R19.04
== END 2024-02-06 12:12 | disposition home or self-care (01) ==
LOC: HO.HMGH 11:11
PROVIDERS: PCP Physician Assistant; Visit Provider Physician Assistant
DX: R20.2 Paresthesia of skin (principal); R19.04 Left lower quadrant abdominal swelling, mass and lump; S89.92XA Unspecified injury of left lower leg, initial encounter
CPT/HCPCS: 99214

== ENCOUNTER 2024-02-14 09:00 | Outpatient (RCR) | payer OTHER, SELFPAY ==
--- NOTE | 2024-02-09 12:39 | MHC.PT.EP ---
[facility] [place] [facility] [place] [facility] [place] [facility] [address] [place] [address] [phone] F: [phone] F: [phone] F: [phone] F: [phone] Physical Therapy Plan of Care Date of Evaluation: 01/18/24 Date of Surgery: Diagnosis: Neck and shoulder strain. Assessment: Pt is a 28 y/o male referred to PT for eval and treat of other instability of L shoulder, strain of muscle / tendon L shoulder, with sp. instructions for RTC stab, cervical ROM and stab who's current condition is resulting in decreased tolerance for lifting objects of weight, turning his head while driving, playing basketball or age appropriate recreations, frequent sense of L shoulder instability, as well as disturbed sleep secondary to L winged scapula, decreased L shoulder serratus anterior strength, + L apprehension, increased tissue tension of L UT, levator muscles, pain with end range cervical rotation, and pain. Pt is deemed an appropriate candidate to receive skilled PT services to address their physical impairments in order to improve their functional ability. Frequency and Duration: The patient will be seen 2 x/ wk x 4 wks. Short Term Goals: Initiate home program. Improve L shoulder pain to at most 4/10. initial 7/10 at worst. Senior Care Goals: Pt will be able to tolerate laying on his L shoulder. Pt will report at most 1/4 disturbed night's sleep; initial: 50%. Improve L shoulder abd MMT by at least 1/2 MMT Grade. Pt will demonstrate (-) L apprehension test. I with Dynamic shoulder stabilization program. Treatment Plan: Modalities to reduce pain, spasms and effusion. Manual therapy to restore motion and function. Therapeutic exercise to improve strength and flexibility. Neuromuscular re-education for posture and balance. Therapeutic activities to return to functional activities of daily living. Electronically signed by: Mathew Waters PT Please sign and return to therapist. Thank you for your referral.
== END 2024-02-14 16:33 | disposition home or self-care (01) ==
LOC: HO.PT 09:00
PROVIDERS: PCP Physician Assistant; Visit Provider Physician Assistant
DX: M25.312 Other instability, left shoulder (principal); S46.812D Strain of other muscles, fascia and tendons at shoulder and upper arm level, left arm, subsequent encounter
CPT/HCPCS: 97110; 97112; 97140; 97161; 97530

== ENCOUNTER 2024-02-17 10:01 | Outpatient (REF) | payer OTHER, SELFPAY ==
--- NOTE | ~2024-02-17 | US_ITS ---
EXAMINATION: US PELVIS, LIMITED CLINICAL INFORMATION: Left lower quadrant pain. COMPARISON: CT abdomen and pelvis dated 09/04/2020; abdominal ultrasound dated 04/13/2021. TECHNIQUE: Using a linear array transducer with grayscale and color modalities, ultrasound examination is performed of the left lower quadrant. FINDINGS: The cutaneous, subcutaneous, muscular and fascial planes are unremarkable. Normal peristalsing bowel loops are noted. No mass or fluid collection is seen. No lymphadenopathy is noted. US/US pelvic limited IMPRESSION: Unremarkable examination.
== END 2024-02-17 10:02 | disposition home or self-care (01) ==
LOC: HO.US 10:01
PROVIDERS: PCP Physician Assistant; Visit Provider Physician Assistant
DX: R10.32 Left lower quadrant pain (principal); R19.04 Left lower quadrant abdominal swelling, mass and lump
CPT/HCPCS: 76857

== ENCOUNTER 2024-03-08 09:41 | Outpatient (AMB) | payer OTHER, SELFPAY ==
--- NOTE | 2024-03-08 09:46 | MHC.OFFVIS ---
Vital Signs 03/08/24 09:48 Height 5 ft 4 in Weight 122 lb BMI 20.9 Intake Visit Reasons: OV - left shoulder px Intake Note: Vijay is a 22 year old male, right hand dominant, who presents today for left shoulder pain. Patient reports the pain has been going on for about 2-3 months. Denies any pain today but does get discomfort from time to time. Patient has a new onset of numbness and tingling on left ring and pinky fingers that began about two hours ago. Loop Puller Required: No Accompanied by: Self / Same As Patient Allergies No Known Allergies Allergy (Verified 03/08/24 09:49) HPI HPI OV - left shoulder px: Details: 28-year-old right hand dominant male who returns to the office today for a follow-up of left shoulder pain. He currently states he has no pain however he does experiences instability and stiffness with activities as well as occasional discomfort. He had attended physical therapy for his shoulder. He also reports he has numbness and tingling on his left ring and pinky finger which began about 2 hours ago. [facility] Medical History (Updated 02/06/24 @ 11:36 by Tai English PA-C) Cluster headache GERD without esophagitis Gilbert syndrome Kidney stone No known health problems Surgical History No history of previous surgery Family History Mother No problems noted. Father No problems noted. Social History Housing: Apartment Alcohol intake: current Alcohol intake frequency: 0-2 drinks per day Alcohol type: beer, wine and hard liquor Patient Tobacco Use Status: Never used Tobacco e-Cigarette/Vaping Use: Never Used Substance Use Type: Marijuana Current occupational status: unemployed Cognitive needs: No Hearing needs: No Vision needs: No Review of Systems Const All systems reviewed & are unremarkable except as noted in HPI and below Physical Exam Vital Signs: BMI result Body Mass Index 20.9 Const General: cooperative, healthy appearing, comfortable, no acute distress, well developed and alert Orientation/consciousness: patient oriented x3 HEENT Head: Yes normal to inspection, Yes normocephalic and Yes atraumatic Eyes General: appearance normal, both eyes and all related structures Resp Effort & Inspection: normal respiratory effort and able to speak in complete sentences Cardio Rate: regular rate Peripheral pulses: Peripheral pulses 2+ throughout GI Palpation (GI): Soft to palpation Skin Lesions: no lesions Rashes: no rashes Neuro General: patient oriented x3 Extrem Other: Left shoulder normal to inspection. No Tenderness over the bicipital groove and along the deltoid region of the shoulder. Forward flexion to 175, external rotation to 90, internal rotation to S1. 5/5 RTC strength. He has No discomfort with apprehension testing on the left. Negative Porter and cross body abduction. NVI. Assessment & Plan Assessment & Plan (1) Instability of left shoulder joint: Code(s): M25.312 - Other instability, left shoulder Category: Medical (2) Trapezius muscle strain: Code(s): S46.819A - Strain of other muscles, fascia and tendons at shoulder and upper arm level, unspecified arm, initial encounter Category: Medical Qualifiers: Encounter type: subsequent encounter Laterality: left Qualified Code(s): S46.812D - Strain of other muscles, fascia and tendons at shoulder and upper arm level, left arm, subsequent encounter (3) Plexopathy: Code(s): G54.9 - Nerve root and plexus disorder, unspecified Category: Medical Plan He is going to increase activity as tolerated. I did advise him to use caution with excessive overhead lifting or reaching away from the plane of the body which may cause instability. He will see me back as needed. Patient Instructions: Scribed for Hannah He PA-C, by Martin Ferguson biomedical repair technician, on 03/08/2024 at 9:45 AM EST. Hannah Ramos PA-C, have personally reviewed and agree with the information entered by the scribe. Coding Level of Care Code Est Pt Level 3 (34048) Diagnoses Instability of left shoulder joint M25.312 Strain of left trapezius muscle, subsequent encounter S46.812D Encounter type: subsequent encounter Laterality: left Plexopathy G54.9
[2024-03-08 09:48] VITALS: BMI 20.9
== END 2024-03-08 10:10 | disposition home or self-care (01) ==
PROVIDERS: PCP Physician Assistant; Visit Provider Physician Assistant
DX: M25.312 Other instability, left shoulder (principal); S46.812D Strain of other muscles, fascia and tendons at shoulder and upper arm level, left arm, subsequent encounter; G54.9 Nerve root and plexus disorder, unspecified
CPT/HCPCS: 99213

== ENCOUNTER → 2024-03-08 09:41 | Outpatient (BNVA) | payer OTHER, SELFPAY | PROVIDERS: PCP Physician Assistant; Visit Provider Physician Assistant | DX: S46.812A Strain of other muscles, fascia and tendons at shoulder and upper arm level, left arm, initial encounter (principal); M25.312 Other instability, left shoulder; G54.9 Nerve root and plexus disorder, unspecified | CPT/HCPCS: 99212 ==

== ENCOUNTER 2024-03-16 14:48 | Emergency (ER) | payer MEDICAID, SELFPAY ==
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
[2024-03-16 14:58] VITALS: BP 110/80; PULSE 73; RESP 18; TEMP 37.7; O2SAT 99; BMI 21.1
--- NOTE | 2024-03-16 16:52 | PC.NURSE ---
Provider to bedside for primary eval.
[2024-03-16 17:10] LABS: MANUAL DIFF FLAG NO
[2024-03-16 17:12] LABS: Basophils Percent Auto 0.4 % (0-2); Eosinophils Percent Auto 0.3 % (0-4); Hematocrit 42.9 % (42.0-52.0); Imm Gran Abs Auto 0.02 X10*3/uL (0.00-0.03); Imm Gran Pct Auto 0.3 % (0.0-0.4); Lymphocytes Absolute Auto 2.4 X10*3/uL (1.2-4.9); Lymphocytes Percent Auto 31.9 % (20-40); Mean Corpuscular Hemoglobin 31.8 pg (27.0-33.0); Mean Corpuscular Volume 90.9 fL (80.0-98.0); Mean Platelet Volume 8.7 fL (9.4-12.4); Monocytes Absolute Auto 0.6 X10*3/uL (0.1-1.2); Monocytes Percent Auto 7.6 % (2-11); Neutrophils Absolute Auto 4.4 x10*3/uL (2.0-8.3); Neutrophils Percent Auto 59.5 % (45-73); Platelet Count 326 X10*3/uL (160-400); Red Blood Count 4.72 X10*6/uL (4.60-5.80); Red Cell Distribution Width 11.9 % (11.0-16.0); White Blood Count 7.4 X10*3/uL (4.8-10.8)
[2024-03-16 17:26] LABS: Anion Gap 15 (12-20); Blood Urea Nitrogen 12 mg/dL (9-16); Calcium 10.5 mg/dL (8.4-10.2); Carbon Dioxide 28 mmol/L (22-29); Chloride 102 mmol/L (96-108); Creatinine Clr Calc Pharmacy 97.5; Estimated Glomerular Filt Rate > 60; Glucose Random 92 mg/dL (60-115); Potassium 4.4 mmol/L (3.3-5.1); Sodium 141 mmol/L (135-145)
[2024-03-16 17:50] LABS: TSH reflex Free T4 0.87 uIU/mL (0.32-4.0)
[2024-03-16 19:24] VITALS: BP 110/76; PULSE 72; RESP 18; TEMP 37.1; O2SAT 99
[2024-03-20 10:48] LABS: Lyme Abs Screen <0.90 index
== END 2024-03-16 19:25 | disposition home or self-care (01) ==
PROVIDERS: Nurse Practitioner Family; Registered Nurse Emergency; Emergency Provider Emergency Medicine; PCP Physician Assistant
DX: S13.4XXA Sprain of ligaments of cervical spine, initial encounter (principal); X50.0XXA Overexertion from strenuous movement or load, initial encounter; X50.9XXA Other and unspecified overexertion or strenuous movements or postures, initial encounter; X50.3XXA Overexertion from repetitive movements, initial encounter; Y93.9 Activity, unspecified; Y92.9 Unspecified place or not applicable; Y99.8 Other external cause status; Z79.899 Other long term (current) drug therapy
CPT/HCPCS: 36415; 80048; 83735; 84443; 85025; 86617; 86618; 99283; 99284

== ENCOUNTER 2024-03-21 13:54 | Outpatient (REF) | payer SELFPAY ==
--- NOTE | ~2024-03-21 | XR_ITS ---
EXAMINATION: XR CERVICAL SPINE CLINICAL INFORMATION: Paresthesias of skin. COMPARISON: None available. TECHNIQUE: 3 views of the cervical spine were obtained. FINDINGS: Cervical spinal alignment is anatomic in the sagittal projection. The vertebral bodies demonstrate preserved stature. Intervertebral disc space heights are preserved. The facet joints demonstrate normal anatomic alignment. The C1-C2 articulation is normal. The dens is intact. The prevertebral soft tissue is normal in appearance. The lung apices are clear. XR/XR cervical spine 3V IMPRESSION: Unremarkable examination.
[2024-03-21 15:14] LABS: Rheumatoid Factor < 13.0 IU/mL (<15.0)
[2024-03-21 15:44] LABS: Folate 8.5 ng/mL (> or = 4.0); Vitamin B12 660 pg/mL (200-900)
[2024-03-22 15:43] LABS: Cyclic Citrullinated Peptide <16 UNITS
[2024-03-23 20:39] LABS: Anti Nuclear Antibody Screen NEGATIVE (NEGATIVE)
[2024-03-26 14:13] LABS: DNAds, Crithidia Antibody Negative (Negative)
== END 2024-03-21 13:55 | disposition home or self-care (01) ==
LOC: HO.LAB 13:54
PROVIDERS: Visit Provider Physician Assistant
DX: M25.50 Pain in unspecified joint (principal); E53.8 Deficiency of other specified B group vitamins; R20.2 Paresthesia of skin
CPT/HCPCS: 36415; 72040; 82607; 82746; 86038; 86200; 86255; 86431

== ENCOUNTER 2024-04-10 12:34 | Emergency (ER) | payer OTHER, SELFPAY ==
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
[2024-04-10 13:05] VITALS: BP 126/79; PULSE 62; RESP 16; TEMP 36.7; O2SAT 100; BMI 21.5
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
== END 2024-04-10 15:32 | disposition left against medical advice (07) ==
LOC: HO.ED 15:25
PROVIDERS: Emergency Provider Emergency Medicine; PCP Physician Assistant
DX: Z04.1 Encounter for examination and observation following transport accident (principal)
CPT/HCPCS: 72070; 72100; 99281; 99283

== ENCOUNTER 2024-10-02 10:44 | Outpatient (AMB) | payer OTHER, SELFPAY ==
--- NOTE | 2024-10-02 10:47 | MHC.PC.OV ---
Vital Signs 10/02/24 10:54 Height 5 ft 4 in Weight 136 lb 6 oz BMI 23.4 BP 104/80 Blood Pressure Location Lt brachial Position Sitting Pulse 84 Pulse Source Pulse Oximeter Pulse Oximetry (%) 98 Oxygen Delivery Method Room Air Intake Visit Reasons: annual exam Intake Note: Patient is here today for a physical. Diabetes Trainer Required: No Accompanied by: Self / Same As Patient Allergies No Known Allergies Allergy (Verified 10/02/24 10:55) Medication List - Last Reconciled 10/02/24 by Tai English PA-C clotrimazole-betamethasone 1-0.05 % 1 appl topical BID 30 days Tobacco use date assessed: 10/02/24 Dental Screening Dental Screen Date: 10/02/24 Did you have a dental visit in the last 12 months?: Yes Did you have a dental problem in the last 6 months where you did not have access to dental care?: No Was dental information given to patient?: Patient has dentist HPI annual exam HPI Details Patient is a 29-year-old male here today for routine annual physical. Patient has a past medical history significant for cervical radiculopathy, history of depression, microscopic hematuria. Having a baby girl anticipated in January of 2025 . Has been found to have microscopic hematuria for quite some time now. Recently had employment urinalysis which showed blood in the urine. Will check urine cytology and recheck urinalysis. Does have history of nephrolithiasis which could be the cause. Will get ultrasounds of both kidneys and bladder. .. Migraine--> reports he had a 2 week stent of chronic migraines a few weeks ago. He attributes this to drinking energy drinks which he reduced and his migraines have gone away. He is willing to try sumatriptan as needed for migraines. Vaccines: needs Tdap-though declines today, declines flu and COVID vaccines [facility] [place] Medical History (Updated 10/02/24 @ 11:18 by Tai English PA-C) Cluster headache GERD without esophagitis Gilbert syndrome Kidney stone No known health problems Surgical History No history of previous surgery Family History Mother No problems noted. Father No problems noted. Social History (Updated 10/02/24 @ 11:01 by Tai English PA-C) Housing: Apartment Alcohol intake: current Alcohol intake frequency: 0-2 drinks per day Alcohol type: beer, wine and hard liquor Patient Tobacco Use Status: Never used Tobacco e-Cigarette/Vaping Use: Never Used Substance Use Type: Marijuana service: No Current occupational status: employed Current occupation: [employer] Cognitive needs: No Hearing needs: No Vision needs: No Questionnaire PHQ-9 Over the last 2 weeks, how often have you been bothered by any of the following problems? 1. Little interest or pleasure in doing things: not at all 2. Feeling down, depressed, or hopeless: not at all 3. Trouble falling or staying asleep, or sleeping too much: not at all 4. Feeling tired or having little energy: not at all 5. Poor appetite or overeating: not at all 6. Feeling bad about yourself - or that you are a failure or have let yourself or your family down: not at all 7. Trouble concentrating on things, such as reading the newspaper or watching television: not at all 8. Moving or speaking so slowly that other people could have noticed. Or the opposite - being so fidgety or restless that you have been moving around a lot more than usual: not at all 9. Thoughts that you would be better off or of hurting yourself in some way: not at all Total score: 0 Depression Screening Interpretation: Negative Depression Screening Done: Yes 57008 - PHQ-9 Billing: Yes Source: Developed by Drs. Pramod Reynoso, Maria Isabel Foley, Gael Ramos and colleagues, with an educational royce from [employer]. Thrive Questionnaire Date Thrive assessed: 10/02/24 I am a: Patient What is your living situation today?: I have a steady place to live Within the past 12 months, did the food you bought not last and you didn't have the money to get more?: Often true Within the past 12 months, did you worry whether your food would run out before you got money to buy more?: Often true Do you have trouble paying for medicines?: No Do you have trouble getting transportation to medical appointments?: No Do you have trouble paying your heating and electricity bill?: No Do you have trouble taking care of your child, family member or friend?: No Do you have trouble with day-to-day activities such as bathing, preparing meals, shopping, managing finances, etc.?: No Are you currently unemployed and looking for a job?: No Are you interested in more education?: No Please select the resources that you would like help with: None Currently or been in a relationship where the following occur: I choose not to answer THRIVE Score: 2 AUDIT C Alcohol Use Questionnaire (AUDIT-C) 1. How often do you have a drink containing alcohol?: Monthly or less 2. How many drinks containing alcohol do you have on a typical day when you are drinking?: 1 or 2 3. How often do you have six or more drinks on one occasion?: Never Total Score: 1 DAVID-7 AMB Questionnaire DAVID-7 Date DAVID - 7 assessed: 10/02/24 Feeling nervous, anxious, or on edge: 0 = Not at all Not being able to stop or control worryin = Not at all Worrying too much about different things: 0 = Not at all Trouble relaxin = Not at all Being so restless that it is hard to sit still: 0 = Not at all Becoming easily annoyed or irritable: 0 = Not at all Feeling afraid as if something awful might happen: 0 = Not at all Total DAVID-7 score (0-4 normal; 5-9 mild; 10-14 moderate; 15-21 severe): 0 Source: Developed by Drs. Pramod Reynoso, Maria Isabel Foley, Gael Ramos and colleagues, with an educational royce from [employer]. DAVID-7 Assessment Billing DAVID-7 Assessment Tool: DAVID-7 Assessment 48832 Review of Systems Const Denies body aches, Denies chills, Denies excessive sweating, Denies fatigue, Denies fever(s) and Denies headache(s) Eyes Denies blurry vision ENT Denies dysphagia, Denies vertigo, Denies dizziness, Denies headache(s), Denies hearing loss and Denies tinnitus Card Denies chest pain, Denies chest pain with activity, Denies syncope, Denies irregular heart rhythm and Denies dyspnea Resp Denies chest congestion, Denies cough, Denies hemoptysis, Denies dyspnea and Denies wheezing GI Denies abdominal pain, Denies melena, Denies hematochezia, Denies coffee ground emesis, Denies dysphagia, Denies diarrhea, Denies nausea and Denies vomiting Denies difficulty urinating, Denies dysuria, Denies urinary frequency, Denies urinary hesitancy and Denies urinary urgency Musc Denies arthralgias, Denies limited range of motion, Denies muscle cramps and Denies muscle weakness Skin/Breast Denies rash and Denies skin ulcer Neuro Denies Abnormal speech present, Denies confusion, Denies vertigo, Denies dizziness, Denies syncope, Denies headache(s), Denies memory loss and Denies seizure-like activity Psych Denies anxiety, Denies confusion, Denies depression, Denies memory loss, Denies panic attacks and Denies paranoia Endo Denies excessive sweating, Denies fatigue, Denies flushing, Denies polydipsia and Denies polyuria Aller/Immun Denies wheezing Physical exam (Primary Care) Vital Signs: Last Vital Signs Pulse 84 10/02/24 10:54 BP 104/80 10/02/24 10:54 Pulse Ox 98 10/02/24 10:54 Oxygen Delivery Method Room Air 10/02/24 10:54 BMI result Body Mass Index 23.4 Tobacco/Smoking Status: Tobacco use Status Tobacco use date assessed 10/02/24 10/02/24 10:55 Patient Tobacco Use Status Never used Tobacco 10/02/24 11:01 e-Cigarette/Vaping Use Never Used 10/02/24 11:01 PHQ-9: PHQ-9 Score PHQ-9: Total score 0 10/02/24 10:55 Depression Screening Interpretation: Negative Thrive Assessment: Date of Thrive Assessment Date Thrive assessed 10/02/24 10/02/24 10:55 Currently or been in a relationship where the following occur: I choose not to answer Const General: cooperative, comfortable, no acute distress, alert and awake; No confusion Orientation/consciousness: oriented to person, oriented to place, patient oriented x3 and No confusion HENMT Head: Yes normocephalic Ears: external ears normal and TM's normal bilaterally Face and sinus: No sinus tenderness Mouth: Normal oral and palatal mucosa present and tongue normal Teeth and gingiva: dentition normal and gingiva normal Throat: Yes posterior oropharynx normal, Yes tonsils normal and Yes uvula midline Eyes Conjunctivae: conjunctivae normal Sclerae: sclerae normal Pupils: Equal, round and reactive pupils present EOM: EOMs intact bilaterally Direct Ophthalmoscopy: No no photophobia Neck Neck: Yes no lymphadenopathy, No tender and Yes no JVD Thyroid: Thyroid normal Carotids: no bruits Chest Chest palpation & inspection: no tenderness Resp Effort & Inspection: normal respiratory effort, no audible wheezes, not labored and no stridor Auscultation: no crackles, no rales, no rhonchi and no wheezes Cardio Jugular venous distension: no JVD Rate: regular rate, not bradycardic and not tachycardic Rhythm: regular rhythm Bruits: no carotid bruits Peripheral pulses: Peripheral pulses 2+ throughout GI Inspection: Yes normal to inspection, No abdominal wall ecchymosis and No visible herniation Palpation (GI): Soft to palpation, nontender, no guarding, not rigid and No hepatosplenomegaly present Auscultation: normoactive bowel sounds General: Yes no CVA tenderness Back/Spine/Pelvis Back: no CVA tenderness and No back tenderness Cervical Spine: cervical ROM normal Thoracic/Lumbar Spine: thoracic and lumbar spine normal to inspection, straight leg raise negative bilaterally, No thoraco-lumbar ROM limited and No lumbar spinal tenderness Skin Lesions: no lesions Rashes: no rashes Wounds: no wounds Neuro General: oriented to person, oriented to place, patient oriented x3, CN's II-XI intact bilaterally and No confusion Cranial nerves: Yes Equal, round and reactive pupils present and Yes Normal accommodation reflex present Cognition (Neuro): normal cognition Speech: No Abnormal speech present Gait exam (Neuro): Normal gait present Motor exam (neuro): 5/5 motor strength present throughout Extrem Right upper extremity: full ROM; no cyanosis Left upper extremity: full ROM; no cyanosis Right lower extremity: no edema Left lower extremity: no edema Psych Appearance: grossly normal Mental Status: mental status grossly normal Affect: normal affect Attitude: cooperative Thought process: Normal thought process present Office Procedures Flu Questionnaire Does the patient have a severe egg allergy?: No Does the patient have severe life threatening allergies?: No Does the patient have a fever or illness today?: No Has the patient ever had Guillain-[place]oseheart Syndrome?: No Has the patient ever had any past reaction to a flu shot?: No Immunizations Fluarix Triv [id number] (PF) 45 mcg (15 mcg x 3)/0.5 mL IM syringe Performing Provider: Tai English PA-C [facility] [place] Documented (not given) by: CHANDANA Yanes on 10/02/24 10:55 Reason Not Given: Patient Refused Coding Level of Care Code Est Pt Prev Care 18-39y(93641) Diagnoses Annual physical exam Z00.00 Kidney stone N20.0 Migraine without status migrainosus, not intractable, unspecified migraine type G43.909 Intractability: not intractable Migraine type: unspecified Status migrainosus presence: without status migrainosus Screening for diabetes mellitus (DM) Z13.1 Additional Codes DAVID-7 Assessment Billing - DAVID-7 Assessment Tool: DAVID-7 Assessment 35657 ([id number]) PHQ-9 - 29051 - PHQ-9 Billing: Yes ([id number]) Assessment & Plan Assessment & Plan (1) Annual physical exam: Code(s): Z00.00 - Encounter for general adult medical examination without abnormal findings Category: Medical Plan: As per HPI (2) Kidney stone: Code(s): N20.0 - Calculus of kidney Category: Medical Plan: Patient has a history of kidney stones. Does have chronic microscopic hematuria. (3) Migraines: Code(s): G43.909 - Migraine, unspecified, not intractable, without status migrainosus Category: Medical Qualifiers: Intractability: not intractable Migraine type: unspecified Status migrainosus presence: without status migrainosus Qualified Code(s): G43.909 - Migraine, unspecified, not intractable, without status migrainosus Plan: As per HPI. Reports he had a bout of migraines for 2 weeks a few weeks ago and he attributes this to increased caffeine use. (4) Screening for diabetes mellitus (DM): Code(s): Z13.1 - Encounter for screening for diabetes mellitus Category: Medical Plan: As per HPI Orders: Orders Influenza [id number] Immunization Today Z23 - Encounter for immunization US bladder Today N20.0 - Calculus of kidney US renal BI Today N20.0 - Calculus of kidney UA CC w/rflx Micro + Cult Today R30.0 - Dysuria, R31.29 - Other microscopic hematuria Urine Cytology Today R31.29 - Other microscopic hematuria Comprehensive [place]. Panel Fast Today Z13.1 - Encounter for screening for diabetes mellitus Medications: New sumatriptan succinate take 1 tab at onset of headache; if no relief may repeat 1 tab after at least 2 hrs; max = 4 tabs/24 hr PO 9 tabs 0RF 30 days G43.909 - Migraine, unspecified, not intractable, without status migrainosus
[2024-10-02 10:54] VITALS: BP 104/80; PULSE 84; O2SAT 98; BMI 23.4
== END 2024-10-02 11:19 | disposition home or self-care (01) ==
PROVIDERS: PCP Physician Assistant; Visit Provider Physician Assistant
DX: Z00.00 Encounter for general adult medical examination without abnormal findings (principal); N20.0 Calculus of kidney; G43.909 Migraine, unspecified, not intractable, without status migrainosus; Z13.1 Encounter for screening for diabetes mellitus; Z23 Encounter for immunization

== ENCOUNTER 2024-10-02 10:44 | Outpatient (REF) | payer OTHER, SELFPAY ==
[2024-10-02 12:22] LABS: Urine Cytology See Pathology rpt
[2024-10-02 12:39] LABS: Appearance Urine Clear; Color Urine Yellow; Glucose Urine UA Negative (Negative); Leukocyte Esterase Urine Trace (Negative); Nitrite Urine Negative (Negative); PH 7.5 (5.0-9.0); Specific Gravity - Urine <= 1.005 (1.005-1.025); UMIC TRIGGER UACC YES; Urine Blood Trace (Negative); Urine Ketones Negative (Negative); Urine Protein Negative (Neg-Trace)
[2024-10-02 12:44] LABS: Bacteria Urine None Seen (None Seen); Hyaline Casts Urine 0-2 /LPF (0-2); RBC Urine 0-2 /HPF (0-2); Squamous Epithelial Cell Urine 0-2 /HPF (0-2); WBC Urine 0-5 /HPF (0-5)
== END 2024-10-02 10:45 | disposition home or self-care (01) ==
LOC: HO.LAB 10:44
PROVIDERS: PCP Physician Assistant; Visit Provider Physician Assistant
DX: Z00.00 Encounter for general adult medical examination without abnormal findings (principal); R31.29 Other microscopic hematuria; R30.0 Dysuria; N20.0 Calculus of kidney; G43.909 Migraine, unspecified, not intractable, without status migrainosus; Z28.21 Immunization not carried out because of patient refusal
CPT/HCPCS: 81001; 88112; 90471; 96127; 99395

== ENCOUNTER 2024-10-06 12:45 | Emergency (ER) | payer OTHER, SELFPAY ==
[2024-10-06 12:56] VITALS: BP 125/76; PULSE 97; RESP 20; TEMP 36.9; O2SAT 100; BMI 23.6
--- NOTE | 2024-10-06 12:57 | ED_ITS ---
HPI - General Adult General Chief complaint: Upper Respiratory Symptoms Stated complaint: tonsil pain, bodyaches Time Seen by Provider: 10/06/24 13:10 Source: patient Mode of arrival: ambulatory Limitations: no limitations History of Present Illness ED Provider: Amy Chang NP HPI narrative: Patient is a 29-year-old male who presents emergency department for evaluation. He reports symptom onset yesterday with myalgias, subjective fevers and chills, had a scratchy throat yesterday but today is very sore. He looked at his throat this morning and noticed white patches to the throat which was concerning to him. He is eating and drinking normally. Denies any known sick contacts. Denies concern for sexually transmitted infections of the oropharynx. Denies headache, dizziness, neck pain, neck stiffness, chest pain, shortness of breath, difficulty breathing, nausea, vomiting, abdominal pain, genitourinary symptoms. Related Data Previous Rx's ?Medication ?Instructions ?Recorded clotrimazole-betamethasone 1 1 appl topical BID 30 days #45 11/23/23 %-0.05 % topical cream grams sumatriptan succinate 25 mg tablet See Rx Instructions PO .COMPLEX 30 10/02/24 days #9 tabs amoxicillin 500 mg capsule 500 mg PO BID #20 caps 10/06/24 Allergies Allergy/AdvReac Type Severity Reaction Status Date / Time No Known Allergies Allergy Verified 10/06/24 12:58 Review of Systems Review of Systems: Yes all other systems are reviewed and are negative PMFSH Past Medical History Attestation statement: The following information was validated with the patient. Source: old records reviewed Medical History Cluster headache GERD without esophagitis Gilbert syndrome Kidney stone No known health problems Surgical History No history of previous surgery Family History Family History Mother No problems noted. Father No problems noted. Social History Social History (Updated 10/02/24 @ 11:01 by Tai English PA-C) Housing: Apartment Alcohol intake: current Alcohol intake frequency: 0-2 drinks per day Alcohol type: beer, wine and hard liquor Patient Tobacco Use Status: Never used Tobacco e-Cigarette/Vaping Use: Never Used Substance Use Type: Marijuana Advance Directives: No Advance Directives Information Provided: Yes Do you have a plan to hurt others: No Plan service: No Current occupational status: employed Current occupation: [employer] Cognitive needs: No Hearing needs: No Vision needs: No Physical Exam ED Vital Signs: Vital Signs - 24 hr 10/06/24 12:56 10/06/24 15:53 Temperature 98.4 F 98.4 F Pulse Rate 97 97 Respiratory Rate 20 20 Blood Pressure 125/76 125/76 Pulse Oximetry 100 100 Oxygen Delivery Method Room Air Room Air BMI result Body Mass Index 23.6 Appearance: Alert.?Oriented to person, place and time. No acute distress.?Normal affect. Eyes: Pupils equal, round and reactive to light.? ENT: TM normal bilaterally. Pharynx is erythematous, 1+ tonsillar hypertrophy bilaterally, symmetrical hypertrophy however white exudates present on the left not the right, uvula midline, no trismus, no drooling, soft palates without induration or tenderness, no palatal petechiae Neck: Normal inspection.? Neck supple.??No cervical adenopathy CVS: Heart sounds normal. Normal heart rate and rhythm.? Pulses normal.?? Respiratory: No respiratory distress.? Lung sounds clear to auscultation bilaterally?? Abdomen: Soft and non-tender. Normoactive bowel sounds. Skin: Skin warm and dry.? Normal skin color.? ? Extremities: No lower extremity edema.? Neuro: Moves all extremities spontaneously. Sensation intact bilaterally. No motor deficits. Ambulates with normal steady gait. Course Course Course Narrative: This is a Rapid Medical Examination (RME) performed by Jacki Dutta PA-C in triage. Full HPI, ROS, assessment and treatment plan per primary provider in the Main ED. 29 yo male here for eval of sore throat, myalgias, chills, subjective fevers x24 hours. denies abd pain, n/v. no sick contacts. + posterior oropharynx erythematous, tonsillar edema, (L>r) with exudates. uvula midline. controlling secretions, speaking in full sentences. Plan: viral/ strep swab Medical Decision Making Medical Decision Making MDM Narrative: Patient is a 29 year male presents emergency department for evaluation of sore throat in addition to myalgias and subjective fevers as per HPI. COVID- 19/influenza/RSV testing is negative. Group a strep testing is negative, symmetrical hypertrophy, minimal hypertrophy and is symmetrical, less consistent with BIT SETTER, no evidence to suggest RPA. Speaking clear full sentences and managing secretions. Given associated symptoms concern for possible viral etiology such as infectious mononucleosis, will obtain mono screen. Overall he is Well-appearing, nontoxic, afebrile, no tachycardia or tachypnea/hypoxia. Speaking clear full sentences, ambulatory with steady gait. Discussed conservative treatment including rest, hydration, Tylenol/ibuprofen as needed for fever and body aches, saline nasal spray, humidifier, [id number] cold medication, Chloraseptic throat spray throat lozenges. Advised to follow-up with primary care provider as needed, discussed reasons to return back to the emergency department. All questions were answered. Patient discharged home in stable condition. Differential Diagnosis Differential Diagnoses: The differential diagnosis associated with the presentation includes ( See narrative above) Admission/Observation Consideration of admission/observation: Escalation of care including admission/observation considered ( see narrative above) Lab Data MDM Lab Attestation statement: I reviewed the patient's lab results. ( see narrative above) Labs: Lab Results 10/06/24 10/06/24 Range/Units 13:08 14:21 Monoscreen Negative (Negative) Influenza Type A (PCR) NEGATIVE (Negative) Influenza Type B (PCR) NEGATIVE (Negative) RSV RNA Qual (PCR) NEGATIVE (Negative) SARS-CoV-2 RNA (RT-PCR) NEGATIVE (Negative) S. pyogenes GrpA GARTH Negative (Negative) Prescription Management I considered prescription management with: Pain Medication ( acetaminophen/ibuprofen) Discharge Plan Discharge Clinical Impression: Acute tonsillitis Patient Disposition: Home, Self-Care Instructions: Tonsillitis (ED) Additional Instructions: Testing today for COVID, flu, RSV, strep throat, and mono (which is a viral illness that can cause sore throat) were all negative. You can take ibuprofen 200 mg, 3 tablets (600mg) every 6-8 hours as needed for pain, in addition to Tylenol 500 mg, 2 tablets (1,000mg) every 4-6 hours as needed for pain, but not to exceed 3 doses daily (3,000mg).? Be sure that you are staying well hydrated and drinking plenty of fluids at least 8-12 cups daily (each 8 oz). You may use Chloraseptic throat spray and throat lozenges to help alleviate pain as well. Prescription for antibiotic was sent to your pharmacy, complete the entire course Follow-up with your primary care doctor for any new or worsening symptoms or concerns. Prescriptions: New amoxicillin 500 mg capsule 500 mg PO BID Qty: 20 0RF No Action clotrimazole-betamethasone 1-0.05 % cream 1 appl topical BID 30 Days Qty: 45 1RF sumatriptan succinate 25 mg tablet See Rx Instructions PO .COMPLEX 30 Days Qty: 9 0RF Rx Instructions: take 1 tab at onset of headache; if no relief may repeat 1 tab after at least 2 hrs; max = 4 tabs/24 hr PO Referrals: Tai English PA-C [Primary Care Provider] - Stand Alone Forms: Work/School Release Interventions: ED Discharge Assessment Last Done: 10/06/24 15:53 Discharge Date/Time: 10/06/24 15:53 Print Language: Hong Kong[place]
[2024-10-06 13:27] LABS: IDNOW Serial# 08D9AD1C; Strep A Nucleic Acid Negative (Negative)
[2024-10-06 13:50] LABS: Influenza A PCR NEGATIVE (Negative); Influenza B PCR NEGATIVE (Negative); Resp Syncy Virus RNA Qual PCR NEGATIVE (Negative); SARS COV2 PCR INHOUSE NEGATIVE (Negative)
[2024-10-06 14:51] LABS: Monotest Negative (Negative)
[2024-10-06 15:53] VITALS: BP 125/76; PULSE 97; RESP 20; TEMP 36.9; O2SAT 100
== END 2024-10-06 15:53 | disposition home or self-care (01) ==
PROVIDERS: Nurse Practitioner Family; Physician Assistant Medical; Emergency Provider Emergency Medicine; PCP Physician Assistant
DX: J03.90 Acute tonsillitis, unspecified (principal); M79.18 Myalgia, other site; Z03.818 Encounter for observation for suspected exposure to other biological agents ruled out
CPT/HCPCS: 0241U; 36415; 86308; 87651; 99282; 99283

== ENCOUNTER 2024-10-08 10:46 | Emergency (ER) | payer OTHER, SELFPAY ==
--- NOTE | ~2024-10-08 | CT_ITS ---
EXAMINATION: CT SOFT TISSUE NECK WITH CONTRAST CLINICAL INFORMATION: Peritonsillar abscess. COMPARISON: None available. TECHNIQUE: Multidetector helical imaging was performed in the axial plane following the administration of 60 mL of Omnipaque 350 intravenous contrast. Multiple axial reformats and coronal/sagittal reconstructions were created the technologist workstation for review. This CT examination was performed using dose optimization techniques as appropriate, variously including the following: *Automated exposure control. *Adjustment of mA and/or kV according to patient size (this includes techniques or standardized protocols for targeted exams where dose is matched to indication/reason for exam; i.e. extremities or head). *Use of iterative reconstruction technique. DLP: 440 mGy-cm FINDINGS: No significant cutaneous thickening or subcutaneous inflammation. Moderately heterogeneous hyperemic enlargement of the left greater than right palatine tonsils with mild surrounding fat stranding. No demonstrated discrete drainable fluid collection. No discrete fluid collection within the deep tissues of the neck. The premaxillary, retromaxillary, pterygopalatine fossa, orbital apical, parapharyngeal, and prelaryngeal adipose tissue is maintained. Normal appearance of the parotid, submandibular, and thyroid glands. Moderately prominent bilateral upper cervical chain lymphadenopathy, measuring up to 1.9 cm in left level IIa. No demonstrated focal lesion or abnormal enhancement within the intrinsic tissues of the tongue or floor of mouth. Normal mucosal contours of the pharynx and larynx without abnormal enhancement. Normal appearance of the hyoid bone, thyroid cartilage, or cartilaginous trachea. The airways remains widely patent. No radiopaque foreign bodies. The atlantooccipital and atlantoaxial articulations remain well aligned. There is anatomic alignment of the vertebral bodies and posterior elements. No evidence of acute fracture or subluxation of the cervical spine. The vertebral body heights are maintained. The intervertebral disc spaces are maintained. No evidence of epidural collection. There is no prevertebral soft tissue swelling. Normal opacification of the cervical arterial and venous structures. The visualized portion of the skull base is without significant abnormalities. Mild mucosal thickening of the paranasal sinuses. Mild leftward nasal septal deviation. The mastoid air cells and middle ear cavities are clear. No demonstrated significant periapical odontogenic disease. CT Upper Chest: The visualized lung apices and upper mediastinum are within normal limits. CT/CT soft tissue neck w IV con IMPRESSION: 1. Moderately heterogeneous hyperemic enlargement of the left greater than right palatine tonsils with mild surrounding fat stranding. No demonstrated discrete drainable fluid collection. 2. Moderately prominent bilateral upper cervical chain lymphadenopathy, likely reactive in nature. 3. No additional focal lesion, collection, or abnormal enhancement within the soft tissues of the neck. Electronically signed by: Nick Dutta DO 10/08/2024 06:38 PM [facility]
[2024-10-08 10:50] VITALS: BP 116/72; PULSE 107; RESP 20; TEMP 37.9; O2SAT 98; BMI 22.3
[2024-10-08] MEDS: Acetaminophen 325 MG TABLET 650 MG PO ×2 (10:55→19:20)
[2024-10-08 11:21] LABS: IDNOW Serial# 08D9AD1C; Strep A Nucleic Acid Negative (Negative)
--- NOTE | 2024-10-08 13:01 | ED.GENADULT ---
HPI - General Adult General Chief complaint: Upper Respiratory Symptoms Stated complaint: body aches not any better since tuesday Time Seen by Provider: 10/08/24 13:00 Source: patient Mode of arrival: ambulatory Limitations: no limitations History of Present Illness ED Provider: Radha Ferro PA-C HPI narrative: 29 year old male with a PMH of cluster headaches, GERD, and Gilbert Syndrome seen in the ED for concerns regarding sore throat for approx 4 days; described as burning/scratchy sensation with associated difficulty swallowing and muffled voice. Also reports pain behind left ear, body aches, chills, vomiting, decreased appetite, centralized abdominal pain. Was seen in ED on Tuesday and prescribed amoxicillin; taking as prescribed but symptoms have worsened. Denies chest pain, SOB, palpitations. Denies blood in stool, hematuria, hemoptysis, hematemesis. Onset (ago): day(s) (3) Quality: other (scratchy) Pain Consistency: constant Relieving factors: none Exacerbating factors: eating and other (drinking/swallowing) Associated symptoms: fever/chills, loss of appetite and nausea/vomiting Treatments prior to arrival: other (ibuprofen ) Related Data Previous Rx's ?Medication ?Instructions ?Recorded clotrimazole-betamethasone 1 1 appl topical BID 30 days #45 11/23/23 %-0.05 % topical cream grams sumatriptan succinate 25 mg tablet See Rx Instructions PO .COMPLEX 30 10/02/24 days #9 tabs amoxicillin 500 mg capsule 500 mg PO BID #20 caps 10/06/24 Allergies Allergy/AdvReac Type Severity Reaction Status Date / Time No Known Allergies Allergy Verified 10/08/24 10:51 Review of Systems Constitutional: Constitutional: Reports no additional constitutional complaints, Reports body ache(s), Reports chills, Reports fever(s), Reports headache(s), Denies night sweats, Reports poor appetite and Denies snoring Eyes: Eyes: Reports no additional eye complaints, Denies blurry vision, Denies change in vision, Denies diplopia, Denies eye discharge, Denies loss of vision and Denies eye pain ENT: Reports Normal hearing present, Reports change in voice (muffled), Denies vertigo, Denies dizziness, Denies ear discharge, Reports headache(s), Denies hearing loss, Denies lip swelling, Denies epistaxis and Reports sore throat Cardiovascular: Cardiovascular: Reports no additional cardiovascular complaints, Denies chest pain, Denies lightheadedness, Denies Loss of Consciousness and Denies dyspnea Respiratory: Respiratory: Reports no additional respiratory complaints, Denies hemoptysis, Denies dyspnea, Denies snoring, Denies stridor and Denies wheezing Gastrointestinal: Gastrointestinal: Reports no additional gastrointestinal complaints, Denies abdominal pain, Denies melena, Denies hematochezia, Denies change in bowel habits and Denies change in stool character Genitourinary: Genitourinary: Reports no additional male genitourinary complaints, Denies hematuria, Denies oliguria, Denies difficulty urinating, Denies dysuria, Denies urinary frequency, Denies urinary hesitancy, Denies urinary incontinence and Denies urinary urgency Musculoskeletal: Musculoskeletal: Reports no additional musculoskeletal complaints, Reports as per HPI, Denies numbness and Denies tingling Integumentary/Breasts: Skin/Breast: Reports system reviewed and no additional complaints, except as docu, Reports as per HPI and Denies change in pigmentation Neurologic: Reports as per HPI, Reports Normal hearing present, Denies vertigo, Denies dizziness, Reports headache(s), Denies loss of vision, Denies numbness and Denies tingling Psychiatric: Psychiatric: Reports no additional psychiatric complaints Endocrine: Endocrine: Reports no additional endocrine complaints Hematologic/Lymphatic: Hematologic/Lymphatic: Reports no additional hematologic/lymphatic complaints Allergic/Immunologic: Allergic/Immunologic: Reports no additional allergic/immunologic complaints, Denies lip swelling and Denies wheezing PMFSH Past Medical History Attestation statement: The following information was validated with the patient. Source: old records reviewed and nursing notes reviewed Medical History Cluster headache GERD without esophagitis Gilbert syndrome Kidney stone No known health problems Surgical History No history of previous surgery Family History Family History Mother No problems noted. Father No problems noted. Social History Social History Housing: Apartment Alcohol intake: current Alcohol intake frequency: 0-2 drinks per day Alcohol type: beer, wine and hard liquor Patient Tobacco Use Status: Never used Tobacco Smoked in Last 30 Days: Yes e-Cigarette/Vaping Use: Never Used Use of substances other than those prescribed or required for medical reasons: Yes Substance Use Type: Marijuana Substance Use Frequency: Daily Advance Directives: No service: No Current occupational status: employed Current occupation: [employer] Cognitive needs: No Hearing needs: No Vision needs: No Physical Exam ED Vital Signs: Vital Signs - 24 hr 10/08/24 10:50 10/08/24 15:06 10/08/24 15:07 Temperature 100.2 F 98.4 F 98.4 F Pulse Rate 107 H 85 Respiratory Rate 20 16 Blood Pressure 116/72 126/83 Pulse Oximetry 98 100 Oxygen Delivery Method Room Air Room Air 10/08/24 16:08 Temperature 98.3 F Pulse Rate 91 Respiratory Rate 16 Blood Pressure 123/70 Pulse Oximetry 97 Oxygen Delivery Method Room Air BMI result Body Mass Index 22.3 Const General: cooperative, no acute distress, alert, awake and other (uncomfortable appearing ) Nutritional Appearance: well nourished Orientation/consciousness: patient oriented x3 Limitations: no limitations HENMT Head: Yes normal to inspection and Yes atraumatic Ears: hearing grossly normal bilaterally and external ears normal General nose exam: Normal external nose present, no nasal discharge noted and no epistaxis Face and sinus: Yes normal facial exam, No abrasion and No laceration Mouth: Normal oral and palatal mucosa present, no drooling and muffled voice Throat: Yes abnormal tonsil (enlarged ) and Yes posterior oropharynx abnormal Eyes General: appearance normal, both eyes and all related structures Periorbital: periorbital findings normal Eyelids: Yes eyelids normal Conjunctivae: conjunctivae normal Pupils: Equal, round and reactive pupils present EOM: EOMs intact bilaterally Neck Neck: Yes normal visual inspection, Yes full ROM, Yes lymphadenopathy (mild; left side more significant than right) and Yes tender (left side) Chest Chest palpation & inspection: normal inspection of the chest Resp Effort & Inspection: normal respiratory effort, able to speak in complete sentences, no audible wheezes, no cough, not labored, no nasal flaring, no respiratory distress and no use of accessory muscles Auscultation: clear to auscultation bilaterally, no crackles, no rales, no rhonchi and no wheezes Cardio Rate: regular rate Rhythm: regular rhythm GI Inspection: Yes normal to inspection Palpation (GI): Soft to palpation, not firm, nontender and no guarding Skin General skin exam: no rashes or lesions noted Neuro General: patient oriented x3 and moves all extremities Cranial nerves: Yes Equal, round and reactive pupils present and Yes Normal hearing present Cognition (Neuro): normal cognition Extrem General: Yes normal to inspection, Yes full ROM and Yes capillary refill normal Psych Appearance: grossly normal Mental Status: mental status grossly normal Affect: normal affect Attitude: cooperative Thought process: Normal thought process present Thought content: Normal thought content present Insight: Good insight present (Psych) Medications Administered Discontinued Medications Generic Name Dose Route Start Last Admin Trade Name Freq PRN Reason Stop Dose Admin Acetaminophen 650 mg 10/08/24 10:53 10/08/24 10:55 Acetaminophen 325 Mg Tablet PO 10/08/24 10:54 650 mg ONCE ONE Administration Dexamethasone Sodium Phosphate 10 mg 10/08/24 13:14 10/08/24 15:00 Dexamethasone Sod Phosphate 10 Mg/Ml Vial PO 10/08/24 13:15 10 mg ONCE ONE Administration Ampicillin Sodium/Sulbactam 100 mls @ 200 mls/hr 10/08/24 13:14 10/08/24 15:33 Sodium 1.5 gm/ Sodium Chloride IV 10/08/24 13:43 Infused ONCE ONE Infusion Acetaminophen 1,000 mg in 100 mls @ 400 mls/hr 10/08/24 13:15 10/08/24 16:35 Ofirmev IV 10/08/24 13:29 Not Given ONCE ONE Iohexol 60 ml 10/08/24 15:50 10/08/24 15:51 Iohexol 350 Mg/Ml 100 Ml Infus..Btl IV 10/08/24 15:51 60 ml ONCE ONE Administration Medical Decision Making Medical Decision Making MDM Narrative: Patient is a 29 year old assigned male at with a history of migraines, MDD, and gilberts syndrome presenting to the emergency department today with persistent sore throat. Patient's physical exam was as noted in the physical exam portion of this note. Patient's blood work showed an elevated WBC count of 17.5, ESR of 59, and CRP of 15.62. Patient's CT soft tissue neck showed tonsilar swelling but no evidence of airway obstruction or abscess. Patient received IV Unasyn and PO Decadron while in the department which helped his symptoms significantly. Patient's HR and temperature normalized. Patient able to tolerate PO fluid while in the department. I explained my physical exam findings as well as all test results to the patient. I answered all questions asked by the patient. I stressed the importance of the patient taking his medication as directed (either prescribed or as the over the counter packaging recommends). I stressed the importance of the patient following up with his primary care provider. I stressed the importance of the patient returning to the emergency department immediately if his symptoms were to worsen or if he were to develop any dizziness, shortness of breath, difficulty breathing, chest pain, blurry vision, loss of vision, nausea, vomiting, abdominal pain, fever, chills, back pain, or any other complaints. Patient verbalized agreement and understanding with this treatment plan and discharge. Differential Diagnosis Differential Diagnoses: The differential diagnosis associated with the presentation includes Tonsilar abscess Tonsilitis Admission/Observation Consideration of admission/observation: Escalation of care including admission/observation considered Patient would have been admitted to the hospital had his work up had any findings where hospital admission was appropriate and his clinical presentation warranted hospital admission. Lab Data [facility] Lab Attestation statement: I reviewed the patient's lab results. My interpretation of these results are in the [facility] Rationale portion of this note. 10/08/24 14:26 10/08/24 14:26 Labs: Lab Results 10/08/24 10/08/24 10/08/24 Range/Units 10:56 12:36 13:10 WBC (4.8-10.8) X10*3/uL RBC (4.60-5.80) X10*6/uL Hgb (14.0-18.0) g/dl Hct (42.0-52.0) % MCV (80.0-98.0) fL MCH (27.0-33.0) pg MCHC (31.0-36.0) g/dl RDW (11.0-16.0) % Plt Count (160-400) X10*3/uL MPV (9.4-12.4) fL Immature Gran % (Auto) (0.0-0.4) % Neut % (Auto) (45-73) % Lymph % (Auto) (20-40) % [place] % (Auto) (2-11) % Eos % (Auto) (0-4) % Baso % (Auto) (0-2) % Lymph # (Auto) (1.2-4.9) X10*3/uL [place] # (Auto) (0.1-1.2) X10*3/uL Eos # (Auto) (0.0-0.4) X10*3/uL Baso # (Auto) (0.0-0.2) X10*3/uL Abs Immat Gran (auto) (0.00-0.03) X10*3/uL Absolute Neuts (auto) (2.0-8.3) x10*3/uL Absolute Nucleated RBC (0.0-0.012) X10*3/uL Nucleated RBC % (auto) (0.0-0.2) /100WBC Smear Tech's Comments ESR (0-15) MM/HR Sodium (135-145) mmol/L Potassium (3.3-5.1) mmol/L Chloride (96-108) mmol/L Carbon Dioxide (22-29) mmol/L Anion Gap (12-20) BUN (9-16) mg/dL Creatinine (0.5-1.4) mg/dL Estim Creat Clear Calc Estimated GFR Random Glucose (60-115) mg/dL Lactic Acid (0.5-2.0) mmol/L Calcium (8.4-10.2) mg/dL Magnesium (1.6-2.6) mg/dL Total Bilirubin (0.0-1.0) mg/dL AST (5-37) U/L ALT (0-40) U/L Alkaline Phosphatase (39-117) U/L C-Reactive Protein (< or = 0.50) mg/dL Total Protein (6.5-8.0) g/dL Albumin (3.5-5.0) g/dL Respiratory Panel Clark See Note Adenovirus (Rapid PCR) Not Detected (Not Detect.) B.pert (TEM-PCR) Not Detected (Not Detect.) B.parapertussis DNA PCR Not Detected (Not Detect.) C. pneumoniae DNA (PCR) Not Detected (Not Detect.) Coronavirus OC43 (PCR) Not Detected (Not Detect.) Coronavirus HKU1 (PCR) Not Detected (Not Detect.) Coronavirus 229E (PCR) Not Detected (Not Detect.) Coronavirus NL63 (PCR) Not Detected (Not Detect.) Monoscreen Negative (Negative) Human Metapneumovir PCR Not Detected (Not Detect.) Influenza A (RT-PCR) Not Detected (Not Detect.) Influenza B (RT-PCR) Not Detected (Not Detect.) M. pneumoniae (PCR) Not Detected (Not Detect.) Parainfluenza 1 (PCR) Not Detected (Not Detect.) Parainfluenza 2 (PCR) Not Detected (Not Detect.) Parainfluenza 3 (PCR) Not Detected (Not Detect.) Parainfluenza 4 (PCR) Not Detected (Not Detect.) RSV (PCR) Not Detected (Not Detect.) Entero/Rhino (PCR) Not Detected (Not Detect.) SARS-CoV-2 RNA (RT-PCR) Not Detected (Not Detect.) S. pyogenes GrpA GARTH Negative (Negative) 10/08/24 Range/Units 14:26 WBC 17.5 H (4.8-10.8) X10*3/uL RBC 4.86 (4.60-5.80) X10*6/uL Hgb 15.2 (14.0-18.0) g/dl Hct 42.6 (42.0-52.0) % MCV 87.7 (80.0-98.0) fL MCH 31.3 (27.0-33.0) pg MCHC 35.7 (31.0-36.0) g/dl RDW 11.8 (11.0-16.0) % Plt Count 272 (160-400) X10*3/uL MPV 9.1 L (9.4-12.4) fL Immature Gran % (Auto) 0.4 (0.0-0.4) % Neut % (Auto) 79.0 H (45-73) % Lymph % (Auto) 7.8 L (20-40) % [place] % (Auto) 12.5 H (2-11) % Eos % (Auto) 0.0 (0-4) % Baso % (Auto) 0.3 (0-2) % Lymph # (Auto) 1.4 (1.2-4.9) X10*3/uL [place] # (Auto) 2.2 H (0.1-1.2) X10*3/uL Eos # (Auto) 0.0 (0.0-0.4) X10*3/uL Baso # (Auto) 0.1 (0.0-0.2) X10*3/uL Abs Immat Gran (auto) 0.07 H (0.00-0.03) X10*3/uL Absolute Neuts (auto) 13.8 H (2.0-8.3) x10*3/uL Absolute Nucleated RBC 0.000 (0.0-0.012) X10*3/uL Nucleated RBC % (auto) 0.0 (0.0-0.2) /100WBC Smear Tech's Comments VERIFIED ESR 59 H (0-15) MM/HR Sodium 135 (135-145) mmol/L Potassium 3.5 D (3.3-5.1) mmol/L Chloride 102 (96-108) mmol/L Carbon Dioxide 21 L (22-29) mmol/L Anion Gap 16 (12-20) BUN 15 (9-16) mg/dL Creatinine 0.96 (0.5-1.4) mg/dL Estim Creat Clear Calc 94.6 Estimated GFR > 60 Random Glucose 114 (60-115) mg/dL Lactic Acid 0.8 (0.5-2.0) mmol/L Calcium 9.9 (8.4-10.2) mg/dL Magnesium 2.2 (1.6-2.6) mg/dL Total Bilirubin 1.4 H (0.0-1.0) mg/dL AST 34 (5-37) U/L ALT 23 (0-40) U/L Alkaline Phosphatase 65 (39-117) U/L C-Reactive Protein 15.62 H (< or = 0.50) mg/dL Total Protein 8.7 H (6.5-8.0) g/dL Albumin 4.7 (3.5-5.0) g/dL Respiratory Panel Clark Adenovirus (Rapid PCR) (Not Detect.) B.pert (TEM-PCR) (Not Detect.) B.parapertussis DNA PCR (Not Detect.) C. pneumoniae DNA (PCR) (Not Detect.) Coronavirus OC43 (PCR) (Not Detect.) Coronavirus HKU1 (PCR) (Not Detect.) Coronavirus 229E (PCR) (Not Detect.) Coronavirus NL63 (PCR) (Not Detect.) Monoscreen (Negative) Human Metapneumovir PCR (Not Detect.) Influenza A (RT-PCR) (Not Detect.) Influenza B (RT-PCR) (Not Detect.) M. pneumoniae (PCR) (Not Detect.) Parainfluenza 1 (PCR) (Not Detect.) Parainfluenza 2 (PCR) (Not Detect.) Parainfluenza 3 (PCR) (Not Detect.) Parainfluenza 4 (PCR) (Not Detect.) RSV (PCR) (Not Detect.) Entero/Rhino (PCR) (Not Detect.) SARS-CoV-2 RNA (RT-PCR) (Not Detect.) S. pyogenes GrpA GARTH (Negative) Independent Interpretation I performed an independent interpretation of an: CT Scan Interpretation: My interpretation is in agreement with the radiologist's impression of this imaging study. EXAMINATION: CT SOFT TISSUE NECK WITH CONTRAST CLINICAL INFORMATION: Peritonsillar abscess. COMPARISON: None available. TECHNIQUE: Multidetector helical imaging was performed in the axial plane following the administration of 60 mL of Omnipaque 350 intravenous contrast. Multiple axial reformats and coronal/sagittal reconstructions were created the technologist workstation for review. This CT examination was performed using dose optimization techniques as appropriate, variously including the following: *Automated exposure control. *Adjustment of mA and/or kV according to patient size (this includes techniques or standardized protocols for targeted exams where dose is matched to indication/reason for exam; i.e. extremities or head). *Use of iterative reconstruction technique. DLP: 440 mGy-cm FINDINGS: No significant cutaneous thickening or subcutaneous inflammation. Moderately heterogeneous hyperemic enlargement of the left greater than right palatine tonsils with mild surrounding fat stranding. No demonstrated discrete drainable fluid collection. No discrete fluid collection within the deep tissues of the neck. The premaxillary, retromaxillary, pterygopalatine fossa, orbital apical, parapharyngeal, and prelaryngeal adipose tissue is maintained. Normal appearance of the parotid, submandibular, and thyroid glands. Moderately prominent bilateral upper cervical chain lymphadenopathy, measuring up to 1.9 cm in left level IIa. No demonstrated focal lesion or abnormal enhancement within the intrinsic tissues of the tongue or floor of mouth. Normal mucosal contours of the pharynx and larynx without abnormal enhancement. Normal appearance of the hyoid bone, thyroid cartilage, or cartilaginous trachea. The airways remains widely patent. No radiopaque foreign bodies. The atlantooccipital and atlantoaxial articulations remain well aligned. There is anatomic alignment of the vertebral bodies and posterior elements. No evidence of acute fracture or subluxation of the cervical spine. The vertebral body heights are maintained. The disc spaces are maintained. No evidence of epidural collection. There is no prevertebral soft tissue swelling. Normal opacification of the cervical arterial and venous structures. The visualized portion of the skull base is without significant abnormalities. Mild mucosal thickening of the paranasal sinuses. Mild leftward nasal septal deviation. The mastoid air cells and middle ear cavities are clear. No demonstrated significant periapical odontogenic disease. CT Upper Chest: The visualized lung apices and upper mediastinum are within normal limits. CT/CT soft tissue neck w IV con IMPRESSION: 1. Moderately heterogeneous hyperemic enlargement of the left greater than right palatine tonsils with mild surrounding fat stranding. No demonstrated discrete drainable fluid collection. 2. Moderately prominent bilateral upper cervical chain lymphadenopathy, likely reactive in nature. 3. No additional focal lesion, collection, or abnormal enhancement within the soft tissues of the neck. Electronically signed by: Nick Dutta DO 10/08/2024 06:38 PM [facility] [place], [place] Dictated By: Carlos Alberto Dutta DO Signed By: Electronically signed by Carlos Alberto Dutta DO 10/08/24 1838 Radiology Impression Discussion of test interpretation with radiology: I have reviewed the radiologist's reading. Prescription Management I considered prescription management with: Antibiotic (patient to continue taking antibiotic as prescribed) Critical Care Time Critical Care Time Critical Care Time: Yes Total Critical Care Time: 37 Attestation: I spent 37 minutes of Critical Care Time with this patient. This does not include time spent on separately reported billable procedures. Discharge Plan Discharge Clinical Impression: Acute bacterial tonsillitis Patient Disposition: Home, Self-Care Instructions: Tonsillitis (ED) Additional Instructions: Continue taking your antibiotic as prescribed. Please take Tylenol + ibuprofen as directed for fever management. Your scan showed no abscess. Follow up with your primary care provider. Return to the emergency department immediately if your symptoms worsen or if you develop any dizziness, shortness of breath, difficulty breathing, chest pain, blurry vision, loss of vision, nausea, vomiting, abdominal pain, fever, chills, back pain, or any other complaints. Prescriptions: No Action amoxicillin 500 mg capsule 500 mg PO BID Qty: 20 0RF clotrimazole-betamethasone 1-0.05 % cream 1 appl topical BID 30 Days Qty: 45 1RF sumatriptan succinate 25 mg tablet See Rx Instructions PO .COMPLEX 30 Days Qty: 9 0RF Rx Instructions: take 1 tab at onset of headache; if no relief may repeat 1 tab after at least 2 hrs; max = 4 tabs/24 hr PO Referrals: Tai English PA-C [Primary Care Provider] - Stand Alone Forms: Work/School Release Print Language: Divehi
[2024-10-08 13:16] LABS: Monotest Negative (Negative)
[2024-10-08 14:23] LABS: Adenovirus PCR Not Detected (Not Detect.); Bordetella parapertussis PCR Not Detected (Not Detect.); Bordetella pertussis PCR Not Detected (Not Detect.); Chlamydia pneumoniae PCR Not Detected (Not Detect.); Coronavirus 229E PCR Not Detected (Not Detect.); Coronavirus HKU1 PCR Not Detected (Not Detect.); Coronavirus NL63 PCR Not Detected (Not Detect.); Coronavirus OC43 PCR Not Detected (Not Detect.); Human metapneumovirus PCR Not Detected (Not Detect.); Influenza A PCR Not Detected (Not Detect.); Influenza B PCR Not Detected (Not Detect.); Mycoplasma pneumoniae PCR Not Detected (Not Detect.); Parainfluenza 1 PCR Not Detected (Not Detect.); Parainfluenza 2 PCR Not Detected (Not Detect.); Parainfluenza 3 PCR Not Detected (Not Detect.); Parainfluenza 4 PCR Not Detected (Not Detect.); RSV PCR Not Detected (Not Detect.); Rhino/Enterovirus PCR Not Detected (Not Detect.)
[2024-10-08 14:30] LABS: SARS-CoV-2 PCR Not Detected (Not Detect.)
[2024-10-08 14:38] LABS: Basophils Absolute Auto 0.1 X10*3/uL (0.0-0.2); Basophils Percent Auto 0.3 % (0-2); Hematocrit 42.6 % (42.0-52.0); Hemoglobin 15.2 g/dl (14.0-18.0); Imm Gran Abs Auto 0.07 X10*3/uL (0.00-0.03); Imm Gran Pct Auto 0.4 % (0.0-0.4); Lymphocytes Absolute Auto 1.4 X10*3/uL (1.2-4.9); Lymphocytes Percent Auto 7.8 % (20-40); MANUAL DIFF FLAG SCAN; Mean Corpuscular HGB Conc 35.7 g/dl (31.0-36.0); Mean Corpuscular Hemoglobin 31.3 pg (27.0-33.0); Mean Corpuscular Volume 87.7 fL (80.0-98.0); Mean Platelet Volume 9.1 fL (9.4-12.4); Monocytes Absolute Auto 2.2 X10*3/uL (0.1-1.2); Monocytes Percent Auto 12.5 % (2-11); Neutrophils Absolute Auto 13.8 x10*3/uL (2.0-8.3); Platelet Count 272 X10*3/uL (160-400); Red Blood Count 4.86 X10*6/uL (4.60-5.80); Red Cell Distribution Width 11.8 % (11.0-16.0); SCAN SMEAR FLAG 1; White Blood Count 17.5 X10*3/uL (4.8-10.8)
[2024-10-08 14:56] LABS: SLIDE REVIEW VERIFIED
[2024-10-08 14:59] LABS: Lactic Acid 0.8 mmol/L (0.5-2.0)
[2024-10-08] MEDS: Ampicillin Sodium/Sulbactam Na 1.5 GM in 0.9 % Sodium Chloride 100 ML IV (14:59)
[2024-10-08] MEDS: dexAMETHasone sod phosphate 10 MG/ML VIAL PO (15:00)
[2024-10-08 15:01] LABS: Alanine Aminotransferase 23 U/L (0-40); Albumin Level 4.7 g/dL (3.5-5.0); Alkaline Phosphatase 65 U/L (39-117); Anion Gap 16 (12-20); Aspartate Amino Transferase 34 U/L (5-37); Bilirubin Total 1.4 mg/dL (0.0-1.0); Blood Urea Nitrogen 15 mg/dL (9-16); C Reactive Protein 15.62 mg/dL (< or = 0.50); Calcium 9.9 mg/dL (8.4-10.2); Carbon Dioxide 21 mmol/L (22-29); Chloride 102 mmol/L (96-108); Creatinine Clr Calc Pharmacy 94.6; Estimated Glomerular Filt Rate > 60; Glucose Random 114 mg/dL (60-115); Magnesium 2.2 mg/dL (1.6-2.6); Potassium 3.5 mmol/L (3.3-5.1); Sodium 135 mmol/L (135-145); Total Protein 8.7 g/dL (6.5-8.0)
[2024-10-08 15:06] VITALS: TEMP 36.9
[2024-10-08 15:07] VITALS: BP 126/83; PULSE 85; RESP 16; TEMP 36.9; O2SAT 100
[2024-10-08 15:18] LABS: Erythrocyte Sedimentation Rate 59 MM/HR (0-15)
[2024-10-08] MEDS: iohexoL 350 MG/ML 100 ML INFUS..BTL 60 ML IV (15:51)
[2024-10-08 16:08] VITALS: BP 123/70; PULSE 91; RESP 16; TEMP 36.8; O2SAT 97
[2024-10-08 19:23] VITALS: BP 123/70; PULSE 91; RESP 16; TEMP 36.8; O2SAT 97
== END 2024-10-08 19:24 | disposition home or self-care (01) ==
PROVIDERS: Physician Assistant Medical; Emergency Provider Emergency Medicine; PCP Physician Assistant
DX: J03.90 Acute tonsillitis, unspecified (principal); H92.02 Otalgia, left ear; Z03.818 Encounter for observation for suspected exposure to other biological agents ruled out
CPT/HCPCS: 36415; 70491; 80053; 83605; 83735; 85025; 85652; 86140; 86308; 87040; 87633; 87651; 96365; 99284; J0295; J1100; Q9967

== ENCOUNTER 2024-10-26 13:33 | Outpatient (REF) | payer OTHER, SELFPAY | END 2024-10-26 13:34 | disposition home or self-care (01) | LOC: HO.US 13:33 | PROVIDERS: PCP Physician Assistant; Visit Provider Physician Assistant | DX: N20.0 Calculus of kidney (principal) | CPT/HCPCS: 76770 ==

== ENCOUNTER 2025-09-25 11:30 | Outpatient (AMB) | payer OTHER, SELFPAY ==
--- NOTE | 2025-09-25 11:33 | A.OFFPC_ITS ---
Vital Signs 09/25/25 11:35 Height 5 ft 4 in Weight 140 lb 2 oz BMI 24.0 BP 110/80 Blood Pressure Location Lt brachial Position Sitting Pulse 67 Pulse Source Pulse Oximeter Temp 97.1 F Temp Source Temporal Artery Scan Pulse Oximetry (%) 98 Oxygen Delivery Method Room Air Intake Visit Reasons: lower abdomen discomfort and migraines Intake Note: Patient is here to follow up on Lower abdomen discomfort and migraines. Uniform Designer Required: No Package Sealer Machine: Not Required per policy Accompanied by: Self / Same As Patient Allergies No Known Allergies Allergy (Verified 09/27/25 16:37) Medication List - Last Reconciled 09/27/25 by Catrachito Gillis MD sumatriptan succinate take 1 tab at onset of headache; if no relief may repeat 1 tab after at least 2 hrs; max = 4 tabs/24 hr PO 30 days Tobacco use date assessed: 09/25/25 Dental Screening Dental Screen Date: 09/25/25 Did you have a dental visit in the last 12 months?: No Did you have a dental problem in the last 6 months where you did not have access to dental care?: No Was dental information given to patient?: Patient has dentist HPI lower abdomen discomfort and migraines HPI Details 30-year-old male presents to the office for a sick visit. Patient reports episodic headaches and abdominal pain. No nausea or vomiting associated with it. No recent change in appetite. No fevers or chills. [facility] Medical History Cluster headache GERD without esophagitis Gilbert syndrome Kidney stone No known health problems Surgical History No history of previous surgery Family History Mother No problems noted. Father No problems noted. Social History Housing: Apartment Alcohol intake: current Alcohol intake frequency: a few times a month Alcohol type: beer, wine and hard liquor Patient Tobacco Use Status: Never used Tobacco e-Cigarette/Vaping Use: Never Used Second Hand Smoke Exposure: No Substance Use Type: Marijuana service: No Current occupational status: employed Current occupation: [employer] Cognitive needs: No Hearing needs: No Vision needs: No Questionnaire PHQ-9 Over the last 2 weeks, how often have you been bothered by any of the following problems? 1. Little interest or pleasure in doing things: not at all 2. Feeling down, depressed, or hopeless: not at all 3. Trouble falling or staying asleep, or sleeping too much: several days 4. Feeling tired or having little energy: several days 5. Poor appetite or overeating: not at all 6. Feeling bad about yourself - or that you are a failure or have let yourself or your family down: not at all 7. Trouble concentrating on things, such as reading the newspaper or watching television: not at all 8. Moving or speaking so slowly that other people could have noticed. Or the opposite - being so fidgety or restless that you have been moving around a lot more than usual: not at all 9. Thoughts that you would be better off or of hurting yourself in some way: not at all Total score: 2 Depression Screening Interpretation: Positive Depression Screening Done: Yes Source: Developed by Drs. Pramod Reynoso, Maria Isabel Foley, Gael Ramos and colleagues, with an educational royce from [employer]. Thrive Questionnaire Date Thrive assessed: 09/25/25 I am a: Patient What is your living situation today?: I have a steady place to live Within the past 12 months, did the food you bought not last and you didn't have the money to get more?: Often true Within the past 12 months, did you worry whether your food would run out before you got money to buy more?: I choose not to answer this question Do you have trouble paying for medicines?: No Do you have trouble getting transportation to medical appointments?: No Do you have trouble paying your heating and electricity bill?: No Do you have trouble taking care of your child, family member or friend?: No Do you have trouble with day-to-day activities such as bathing, preparing meals, shopping, managing finances, etc.?: No Are you currently unemployed and looking for a job?: No Are you interested in more education?: No Please select the resources that you would like help with: Paying for medicine Currently or been in a relationship where the following occur: I choose not to answer THRIVE Score: 1 AUDIT C Alcohol Use Questionnaire (AUDIT-C) 1. How often do you have a drink containing alcohol?: Monthly or less 2. How many drinks containing alcohol do you have on a typical day when you are drinking?: 1 or 2 3. How often do you have six or more drinks on one occasion?: Never Total Score: 1 DAVID-7 AMB Questionnaire DAVID-7 Date DAVID - 7 assessed: 09/25/25 Feeling nervous, anxious, or on edge: 0 = Not at all Not being able to stop or control worryin = Not at all Worrying too much about different things: 0 = Not at all Trouble relaxin = Not at all Being so restless that it is hard to sit still: 0 = Not at all Becoming easily annoyed or irritable: 0 = Not at all Feeling afraid as if something awful might happen: 0 = Not at all Total DAVID-7 score (0-4 normal; 5-9 mild; 10-14 moderate; 15-21 severe): 0 Source: Developed by Drs. Pramod Reynoso, Maria Isabel Foley, Gael Ramos and colleagues, with an educational royce from [employer]. Physical exam (Primary Care) Vital Signs: Last Vital Signs Temp 97.1 F 09/25/25 11:35 Pulse 67 09/25/25 11:35 BP 110/80 09/25/25 11:35 Pulse Ox 98 09/25/25 11:35 Oxygen Delivery Method Room Air 09/25/25 11:35 BMI result Body Mass Index 24.0 Tobacco/Smoking Status: Tobacco use Status Tobacco use date assessed 09/25/25 09/25/25 11:42 Patient Tobacco Use Status Never used Tobacco 09/25/25 11:42 e-Cigarette/Vaping Use Never Used 09/25/25 11:42 PHQ-9: PHQ-9 Score PHQ-9: Total score 2 09/25/25 11:42 Depression Screening Interpretation: Positive Thrive Assessment: Date of Thrive Assessment Date Thrive assessed 09/25/25 09/25/25 11:42 Currently or been in a relationship where the following occur: I choose not to answer Const General: cooperative and healthy appearing Nutritional Appearance: well nourished Orientation/consciousness: patient oriented x3 Limitations: no limitations HENMT Head: Yes normal to inspection Eyes General: appearance normal, both eyes and all related structures Neck Neck: Yes normal visual inspection Chest Chest palpation & inspection: normal palpation of entire chest wall Resp Effort & Inspection: normal respiratory effort Neuro General: patient oriented x3 Coding Level of Care Code Complex visit Add On G2211 Diagnoses Headache R51.9 Assessment & Plan Assessment & Plan (1) Headache: Code(s): R51.9 - Headache, unspecified Plan: Reassurance. No prescription medications needed. If symptoms worsened to follow-up here. Medications: Refilled sumatriptan succinate take 1 tab at onset of headache; if no relief may repeat 1 tab after at least 2 hrs; max = 4 tabs/24 hr PO 9 tabs 0RF 30 days G43.909 - Migraine, unspecified, not intractable, without status migrainosus
[2025-09-25 11:35] VITALS: BP 110/80; PULSE 67; TEMP 36.2; O2SAT 98; BMI 24.0
--- OUTSIDE RECORDS SUMMARY | 2025-09-25 22:38 | XMS_ITS | Clinical Summary ---
Author Organization [facility] Address [address] [address] Phone Care Team Providers Care Heel Stainer Name Role Phone Pcp, Unknown Primary Care Provider Unavailabl e Social History Tobacco Use Types Packs/Day Years Used Date Smoking Tobacco: Never Assessed Education Answer Date Recorded Are you interested in more education? Not on shady e 03/04/2023 Are you concerned about learning? Not on file 03/04/2023 No 03/04/2023 No 03/04/2023 Digital Access Answer Date Recorded No 04/05/2023 No 04/05/2023 Reliable internet access at home? Not on file 04/05/2023 Device with a working camera? Not on file Sex and Gender Information Value Date Recorded Sex Assigned at Not on file Legal Sex Male 11:37 AM EDT Gender Identity Not on file Sexual Orientation Not on file Plan of Treatment Not on file Medical Devices Not on file Insurance [facility] PCP [facility] [address] [place], [place] [address]O Member Subscriber Plan / Payer (Ef fective 2019-Present) Name:Vijay Marquez Relation to Subscriber:Self Name:Vijay Marquez Payer ID:Not on file Group ID:Not on file Type:O Address: [address] NON [place]SP[place] PCP [employer] [facility] Member Subscriber Plan / Payer (Ef fective 2019-Present) Name:Vijay Marquez Relation to Subscriber:Self Name:Vijay Marquez Payer ID:Not on file Group ID:Not on file Type:O Address: [address] NON [place]SP[place] PCP [employer] [facility] Member Subscriber Plan / Payer (Ef fective 2019-Present) Name:Vijay Marquez Relation to Subscriber:Self Name:Vijay Marquez Payer ID:Not on file Group ID:Not on file Type:O Address: [address] NON [place]SP[place] PCP [employer] [facility] Member Subscriber Plan / Payer (Ef fective 2019-Present) Name:Vijay Marquez Relation to Subscriber:Self Name:Vijay Marquez Payer ID:Not on file Group ID:Not on file Type:O Address: [address] NON [place]SP[place] PCP [employer] O Member Subscriber Plan / Payer (Ef fective 2019-Present) Name:Vijay Marquez Relation to Subscriber:Self Name:Vijay Marquez Payer ID:Not on file Group ID:Not on file Type:O Address: [address] NON [place]SP[place] PCP [employer] O Member Subscriber Plan / Payer (Ef fective 2019-Present) Name:Vijay Marquez Relation to Subscriber:Self Name:Vijay Marquez Payer ID:Not on file Group ID:Not on file Type:O Address: [address] NON [place]SPG PCP [employer] [facility] Member Subscriber Plan / Payer (Ef fective 2019-Present) Name:Vijay Marquez Relation to Subscriber:Self Name:Vijay Marquez Payer ID:Not on file Group ID:Not on file Type:O Address: [address] NON NSPG PCP [employer] [facility] NON NSPG PCP [facility] [place] [address] Care Teams Heel Stainer Relationship Specialty Start Date End Date Pcp, Unknown PCP - General 03/27/20 Additional Source Comments The information contained in this document represents components of the legal health record. It is not the complete legal health record.[facility]
== END 2025-09-25 12:11 | disposition home or self-care (01) ==
LOC: HO.HMCH 11:31
PROVIDERS: PCP Physician Assistant; Visit Provider Internal Medicine
DX: R51.9 Headache, unspecified (principal)

== ENCOUNTER 2025-10-17 13:50 | Outpatient (AMB) | payer OTHER, SELFPAY ==
[2025-10-17 14:02] VITALS: BP 118/60; PULSE 84; O2SAT 98; BMI 23.9
--- NOTE | 2025-10-17 14:02 | AM.OFFWIN_ITS ---
Intake Vital Signs 10/17/25 14:02 Height 5 ft 4 in Weight 139 lb BMI 23.9 BP 118/60 Blood Pressure Location Lt brachial Position Sitting Pulse 84 Pulse Source Pulse Oximeter Pulse Oximetry (%) 98 Oxygen Delivery Method Room Air Intake Visit Reasons: EP right wrist pain Intake Note: Patient presents c/o left wrist pain related to falling this morning when walking in to work. Patient Tobacco Use Status: Never used Tobacco Allergies No Known Allergies Allergy (Verified 10/17/25 14:05) Do you need a note to return to daycare/school/sports/work: Yes HPI HPI Comments History of Present Illness Details 30-year-old male presents to the walk-in clinic with complaint of left wrist pain after a fall this morning at work. Patient reports he slipped on ice and extended his left hand to break the fall. Describes pain and tenderness in the left wrist, worse with range of motion of the fingers. Denies numbness, tingling, or radiating pain. No prior injuries to the wrist. [facility] Medical History (Updated 10/17/25 @ 14:19 by Supriya Rodriguez NP) Contusion of left hand Cluster headache GERD without esophagitis Gilbert syndrome Kidney stone No known health problems Surgical History No history of previous surgery Family History Mother No problems noted. Father No problems noted. Social History Housing: Apartment Alcohol intake: current Alcohol intake frequency: a few times a month Alcohol type: beer, wine and hard liquor Patient Tobacco Use Status: Never used Tobacco e-Cigarette/Vaping Use: Never Used Second Hand Smoke Exposure: No Substance Use Type: Marijuana service: No Current occupational status: employed Current occupation: [employer]. Cognitive needs: No Hearing needs: No Vision needs: No Review of Systems Const All systems reviewed & are unremarkable except as noted in HPI and below Physical Exam Vital Signs: Last Vital Signs Pulse 84 10/17/25 14:02 BP 118/60 10/17/25 14:02 Pulse Ox 98 10/17/25 14:02 Oxygen Delivery Method Room Air 10/17/25 14:02 BMI result Body Mass Index 23.9 Const General: comfortable and no acute distress Nutritional Appearance: well nourished Orientation/consciousness: patient oriented x3 Neuro General: patient oriented x3, gait normal and moves all extremities Extrem Other: LEFT WRIST/HAND: No Visible mild swelling. MIld Tenderness to palpation over distal radius and carpal region. Pain with active and passive ROM of wrist and fingers. No deformity, erythema, or open wounds noted. Sensation intact to all digits. Capillary refill < 2 seconds. Radial pulse 2+. Assessment & Plan Assessment & Plan (1) Contusion of left hand: Code(s): S60.222A - Contusion of left hand, initial encounter Plan: Acute left wrist pain s/p fall ? concern for wrist sprain vs distal radius or Scaphoid fracture. left wrist X-ray (3-view) to rule out fracture. Wrapped Wrist with Gallo bandage. Ice 15?20 minutes every 2?3 hours for first 48 hours. NSAIDs as needed for pain. Return precautions: increasing pain, swelling, numbness, tingling, or discoloration. Orders: Orders XR hand LT min 3V Today S60.222A - Contusion of left hand, initial encounter Coding Level of Care Code Est Pt Level 4 (01995) Diagnoses Contusion of left hand S60.222A Time Spent (min) 20
--- OUTSIDE RECORDS SUMMARY | 2025-10-17 21:07 | XMS_ITS | Clinical Summary ---
Author Organization [facility] Address [address] [address] Phone Care Team Providers Care Sort Line Name Role Phone Pcp, Unknown Primary Care [...] file Medical Devices Not on file [facility] [address] [place], [place] [id number] Member Subscriber Plan / Payer (Ef fective 2019-Present) Name:Vijay Marquez Relation to Subscriber:Self Name:Vijay Marquez Payer ID:Not on file Group ID:Not on file Type:O Address: [address] NON NSPG PCP [employer] [facility] Member Subscriber Plan / Payer (Ef fective 2019-Present) Name:Vijay Marquez Relation to Subscriber:Self Name:Vijay Marquez Payer ID:Not on file Group ID:Not on file Type:O Address: [address] NON NSPG PCP [employer] [facility] Member Subscriber Plan / Payer (Ef fective 2019-Present) Name:Vijay Marquez Relation to Subscriber:Self Name:Vijay Marquez Payer ID:Not on file Group ID:Not on file Type:O Address: [address] NON NSPG PCP [facility] [facility] Member Subscriber Plan / Payer (Ef fective 2019-Present) Name:Vijay Marquez Relation to Subscriber:Self Name:Vijay Marquez Payer ID:Not on file Group ID:Not on file Type:O Address: [address] NON NSPG PCP [employer] [facility] O Member Subscriber Plan / Payer (Ef fective 2019-Present) Name:Vijay Marquez Relation to Subscriber:Self Name:Vijay Marquez Payer ID:Not on file Group ID:Not on file Type:O Address: [address] NON NSPG PCP [employer] [facility] O Member Subscriber Plan / Payer (Ef fective 2019-Present) Name:Vijay Marquez Relation to Subscriber:Self Name:Vijay Marquez Payer ID:Not on file Group ID:Not on file Type:O Address: [address] NON NSPG PCP [facility] [facility] Member Subscriber Plan / Payer (Ef fective 2019-Present) Name:Vijay Marquez Relation to Subscriber:Self Name:Vijay Marquez Payer ID:Not on file Group ID:Not on file Type:O Address: [address] NON NSPG PCP [facility] [employer] NON NSPG PCP [facility] [employer] Care Teams Sort Line Relationship Specialty Start Date End Date Pcp, Unknown PCP - General 03/27/20 Additional Source Comments The information contained in this document represents components of the legal health record. It is not the complete legal health record.[facility]
--- OUTSIDE RECORDS SUMMARY | 2025-10-17 21:07 | XMS_ITS | Clinical Summary ---
Author Organization [facility] ity Address [address] [place] [address] Care Team Providers Care Five Piece Expansion Maker Hand Name Role Phone Unavailable Primary Care Provider Unavailabl e Social History Tobacco Use Types Packs/Day Years Used Date Smoking Tobacco: Never Assessed Sex and Gender Information Value Date Recorded Sex Assigned at Not on file Legal Sex Male 5:43 PM EST Gender Identity Not on file Sexual Orientation Not on file Plan of Treatment Health Maintenance Due Date Last Done Comments DTaP,Tdap,and Td Vaccines (1 - Tdap) 2014 Hepatitis B Vaccines (1 of 3 - 19+ 3-dose series) 2014 HPV Vaccines (1 - 3-dose SCD M series) 2022 Depression Screening 11/07/2024 COVID-19 Vaccine (1 - 2024-2 6 season) 2025 Influenza Vaccine (#1) 2025 RSV Immunization Adult Patie nts (1 - 1-dose 75+ series) 2070 HIB Vaccines Aged Out No longer eligi ble based on patient's age to complete this topic Hepatitis A Vaccines Aged Out No long er eligible based on patient's age to complete this topic IPV Vaccines Aged Out No longer eligi ble based on patient's age to complete this topic MMR Vaccines Aged Out No longer eligi ble based on patient's age to complete this topic Meningococcal ACWY Vaccine Aged Out N o longer eligible based on patient's age to complete this topic Meningococcal B Vaccine Aged Out No l onger eligible based on patient's age to complete this topic Pneumococcal Vaccine: Pediat rics (0 to 5 Years) and At-Risk Patients (6 to 49 Years) Aged Out No longer eligible b ased on patient's age to complete this topic RSV Immunization Patients Un brian 20 months Aged Out No longer eligible b ased on patient's age to complete this topic Varicella Vaccines Aged Out No longer eligible based on patient's age to complete this topic
== END 2025-10-17 14:57 | disposition home or self-care (01) ==
PROVIDERS: PCP Physician Assistant; Visit Provider Nurse Practitioner Family
DX: S60.222A Contusion of left hand, initial encounter (principal)

== ENCOUNTER 2025-10-17 13:50 | Outpatient (REF) | payer OTHER, SELFPAY ==
--- NOTE | ~2025-10-17 | XR_ITS ---
EXAMINATION: XR HAND 3 OR MORE VIEWS LEFT HISTORY: S60.222A - Contusion of left hand, initial encounter COMPARISON: There are no prior studies available for comparison. FINDINGS: Three views of the left hand are submitted. Osseous mineralization is normal. There is no fracture or dislocation. The joint spaces are preserved. The soft tissues are unremarkable. XR/XR hand LT min 3V IMPRESSION: Unremarkable examination of the left hand. Electronically signed by: Pramod Choudhury MD 10/17/2025 02:57 PM EST
== END 2025-10-17 13:51 | disposition home or self-care (01) ==
LOC: HO.HMGCX 13:50
PROVIDERS: PCP Physician Assistant; Visit Provider Nurse Practitioner Family
DX: S60.222A Contusion of left hand, initial encounter (principal); W00.0XXA Fall on same level due to ice and snow, initial encounter; Y93.01 Activity, walking, marching and hiking; Y92.9 Unspecified place or not applicable; Y99.0 Civilian activity done for income or pay
CPT/HCPCS: 73130

== ENCOUNTER → 2025-10-17 14:25 | Outpatient (BNV) | payer OTHER, SELFPAY | PROVIDERS: PCP Physician Assistant; Visit Provider Radiology Diagnostic Radiology | DX: S60.222A Contusion of left hand, initial encounter (principal) | CPT/HCPCS: 73130 ==

== ENCOUNTER 2025-10-29 13:08 | Outpatient (AMB) | payer OTHER, SELFPAY ==
--- NOTE | 2025-10-29 13:15 | A.OFFPC_ITS ---
Vital Signs 3 10/29/25 13:18 Height 5 ft 4 in Weight 142 lb 6 oz BMI 24.4 BP 126/76 Blood Pressure Location Lt brachial Position Sitting Pulse 71 Pulse Source Pulse Oximeter Temp 97.3 F Temp Source Temporal Artery Scan Pulse Oximetry (%) 98 Oxygen Delivery Method Room Air Intake Visit Reasons: discuss FMLA paperwork-okay per [place] Intake Note: Patient is here to follow up on FMLA. 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 He has a lifelong history of migraines, which now occur almost daily. Associated symptoms include mild swelling on the right side of his face, stuffy nose, and rhinorrhea. He reports that he is taking naproxen, which provides some help. The patient also reports several months of persistent discomfort primarily in the left testicle, which radiates to the groin and abdomen. He describes the sensation as a dull ache and feels as if the testicle gets pinched or twisted. The discomfort is constant and does not worsen or lessen, but he noted temporary relief after fasting for two days, which returned upon eating. He denies any pain with urination. Past workup for this issue includes a check-up with another physician who examined his stomach and found no issues, an abdominal ultrasound in 2020 that showed nothing, and a pelvic CT scan in 2019 which was also normal. He also recently sustained a left hand sprain after a fall on black ice, which is improving. [facility]LY [facility], [facility] Medical History Contusion of left hand Cluster headache GERD without esophagitis Gilbert syndrome Kidney stone No known health problems Surgical History No history of previous surgery Family History Mother No problems noted. Father No problems noted. Social History Housing: Apartment Alcohol intake: current Alcohol intake frequency: a few times a month Alcohol type: beer, wine and hard liquor Patient Tobacco Use Status: Never used Tobacco e-Cigarette/Vaping Use: Never Used Second Hand Smoke Exposure: No Substance Use Type: Marijuana service: No Current occupational status: employed Current occupation: [employer] Cognitive needs: No Hearing needs: No Vision needs: No Questionnaire Thrive Questionnaire Date Thrive assessed: 09/25/25 I am a: Patient What is your living situation today?: I have a steady place to live Within the past 12 months, did the food you bought not last and you didn't have the money to get more?: Often true Within the past 12 months, did you worry whether your food would run out before you got money to buy more?: I choose not to answer this question Do you have trouble paying for medicines?: No Do you have trouble getting transportation to medical appointments?: No Do you have trouble paying your heating and electricity bill?: No Do you have trouble taking care of your child, family member or friend?: No Do you have trouble with day-to-day activities such as bathing, preparing meals, shopping, managing finances, etc.?: No Are you currently unemployed and looking for a job?: No Are you interested in more education?: No Please select the resources that you would like help with: Paying for medicine Currently or been in a relationship where the following occur: I choose not to answer THRIVE Score: 1 DAVID-7 AMB Questionnaire DAVID-7 Date DAVID - 7 assessed: 09/25/25 Source: Developed by Drs. Pramod Reynoso, Maria Isabel Foley, Gael Ramos and colleagues, with an educational royce from [employer]. Review of Systems Const Reports headache(s) Eyes Denies loss of vision ENT Denies vertigo, Denies dizziness, Reports headache(s) and Denies sore throat Card Denies chest pain, Denies leg edema and Denies lightheadedness Resp Denies cough, Denies hemoptysis and Denies wheezing GI Reports abdominal pain, Denies melena, Denies constipation, Denies diarrhea and Denies vomiting Denies dysuria, Denies urinary frequency and Denies urinary urgency Musc Denies arthralgias, Denies joint swelling, Denies numbness and Denies tingling Neuro Denies Abnormal speech present, Denies behavioral changes, Denies vertigo, Denies dizziness, Reports headache(s), Denies loss of vision, Denies memory loss, Denies numbness and Denies tingling Psych Denies anxiety, Denies behavioral changes, Denies depression, Denies memory loss and Denies panic attacks Travis/Lymph Denies easy bleeding and Denies easy bruising Aller/Immun Denies wheezing Physical exam (Primary Care) Vital Signs: Last Vital Signs Temp 97.3 F 10/29/25 13:18 Pulse 71 10/29/25 13:18 BP 126/76 10/29/25 13:18 Pulse Ox 98 10/29/25 13:18 Oxygen Delivery Method Room Air 10/29/25 13:18 BMI result Body Mass Index 24.4 Tobacco/Smoking Status: Tobacco use Status Tobacco use date assessed 10/29/25 10/29/25 13:25 Patient Tobacco Use Status Never used Tobacco 10/29/25 13:21 e-Cigarette/Vaping Use Never Used 10/29/25 13:21 Thrive Assessment: Date of Thrive Assessment Date Thrive assessed 09/25/25 10/29/25 13:17 Currently or been in a relationship where the following occur: I choose not to answer Const General: healthy appearing, no acute distress, alert and awake Nutritional Appearance: well nourished Orientation/consciousness: oriented to person, oriented to place and oriented to time [facility] Ears: TM's normal bilaterally General nose exam: Normal nasal mucous membranes and turbinates present Eyes Conjunctivae: conjunctivae normal Sclerae: sclerae normal Pupils: Equal, round and reactive pupils present Neck Neck: Yes no lymphadenopathy and Yes no JVD Thyroid: Thyroid normal Carotids: no bruits Resp Effort & Inspection: normal respiratory effort and not tachypneic Auscultation: no crackles, no rales, no rhonchi and no wheezes Cardio Rate: regular rate Rhythm: regular rhythm Heart sounds: no murmurs and normal S1 and S2 GI Palpation (GI): Soft to palpation, nontender, no hepatomegaly and no splenomegaly Auscultation: normal bowel sounds Abdomen image: 2 1. INTERMITTENT PAIN LOCATED IN THE AREA OUTLINED Skin General skin exam: no rashes or lesions noted and dry skin Neuro General: oriented to person, oriented to place and oriented to time Cranial nerves: Yes Equal, round and reactive pupils present Speech: No Abnormal speech present Gait exam (Neuro): Normal gait present Motor exam (neuro): no tremor noted Extrem Right upper extremity: full ROM Left upper extremity: full ROM Right lower extremity: full ROM; no edema Left lower extremity: full ROM; no edema Psych Mental Status: mental status grossly normal Speech and movement: Normal speech and movement present Affect: normal affect Attitude: cooperative Thought process: Normal thought process present Coding Level of Care Code Est Pt Level 4 (49696) Diagnoses Migraine without status migrainosus, not intractable, unspecified migraine type G43.909 Migraine type: unspecified Status migrainosus presence: without status migrainosus Intractability: not intractable Left lower quadrant abdominal pain R10.32 Assessment & Plan Assessment & Plan (1) Migraines: Code(s): G43.909 - Migraine, unspecified, not intractable, without status migrainosus Category: Medical Qualifiers: Migraine type: unspecified Status migrainosus presence: without status migrainosus Intractability: not intractable Qualified Code(s): G43.909 - Migraine, unspecified, not intractable, without status migrainosus Plan: For his chronic migraines, FMLA and [employer] paperwork will be completed to support intermittent medical leave from work. The request is for one day off per week (8 hours) for a duration of six months due to the disabling nature of his symptoms. He will continue taking naproxen as needed and has declined trying other medications at this time. (2) Left lower quadrant abdominal pain: Code(s): R10.32 - Left lower quadrant pain Category: Medical Plan: Regarding the chronic left testicular and abdominal discomfort, a scrotal ultrasound will be ordered to further evaluate his symptoms, despite prior unremarkable imaging. A referral to a urologist is also considered for further evaluation. Orders: Orders 2 Complete Blood Count no Diff Today Z13.1 - Encounter for screening for diabetes mellitus US abdomen complete Today R10.32 - Left lower quadrant pain UA CC w/rflx Micro + Cult Today R30.0 - Dysuria, R31.29 - Other microscopic hematuria Comprehensive [place]. Panel Fast Today Z13.1 - Encounter for screening for diabetes mellitus Referrals 2 Gastroenterology Referral R10.32 - Left lower quadrant pain
[2025-10-29 13:18] VITALS: BP 126/76; PULSE 71; TEMP 36.3; O2SAT 98; BMI 24.4
--- OUTSIDE RECORDS SUMMARY | 2025-10-29 14:12 | XMS_ITS | Clinical Summary ---
Author Organization [employer] [facility] ity Address [address] [place] [address] Care Team Providers Care Sales Engineer Engineered Products Name Role Phone Unavailable Primary Care Provider [...]
--- OUTSIDE RECORDS SUMMARY | 2025-10-29 14:12 | XMS_ITS | Clinical Summary ---
Author Organization Formerly [facility] Address [address] [address] Phone Care Team Providers Care Software Quality Assurance Specialist Name Role Phone Pcp, Unknown Primary Care [...] file Medical Devices Not on file [facility] P[facility] [address] [place], [place] [id number] Member Subscriber Plan / Payer (Ef fective 2019-Present) Name:Vijay Marquez Relation to Subscriber:Self Name:Vijay Marquez Payer ID:Not on file Group ID:Not on file Type:O Address: [address] NON [place] PCP [employer] [facility] Member Subscriber Plan / Payer (Ef fective 2019-Present) Name:Vijay Marquez Relation to Subscriber:Self Name:Vijay Marquez Payer ID:Not on file Group ID:Not on file Type:O Address: [address] NON [place] PCP [employer] [facility] Member Subscriber Plan / Payer (Ef fective 2019-Present) Name:Vijay Marquez Relation to Subscriber:Self Name:Vijay Marquez Payer ID:Not on file Group ID:Not on file Type:O Address: [address] [place] PCP [employer] [facility] Member Subscriber Plan / Payer (Ef fective 2019-Present) Name:Vijay Marquez Relation to Subscriber:Self Name:Vijay Marquez Payer ID:Not on file Group ID:Not on file Type:O Address: [address] NON [place] PCP [employer] O Member Subscriber Plan / Payer (Ef fective 2019-Present) Name:Vijay Marquez Relation to Subscriber:Self Name:Vijay Marquez Payer ID:Not on file Group ID:Not on file Type:O Address: [address] NON [place] PCP [employer] O Member Subscriber Plan / Payer (Ef fective 2019-Present) Name:Vijay Marquez Relation to Subscriber:Self Name:Vijay Marquez Payer ID:Not on file Group ID:Not on file Type:O Address: [address] NON [place] PCP [facility] [facility] Member Subscriber Plan / Payer (Ef fective 2019-Present) Name:Vijay Marquez Relation to Subscriber:Self Name:Vijay Marquez Payer ID:Not on file Group ID:Not on file Type:O Address: [address] NON [place] PCP [employer] NON [place] PCP [employer] Care Teams Software Quality Assurance Specialist Relationship Specialty Start Date End Date Pcp, Unknown PCP - General 03/27/20 Additional Source Comments The information contained in this document represents components of the legal health record. It is not the complete legal health record.Formerly [facility]
== END 2025-10-29 13:57 | disposition home or self-care (01) ==
PROVIDERS: PCP Physician Assistant; Visit Provider Physician Assistant
DX: G43.909 Migraine, unspecified, not intractable, without status migrainosus (principal); R10.32 Left lower quadrant pain